=== PATIENT | female | born 1945 | race Caucasian/White ===

== ENCOUNTER 2017-09-06 20:59 | Inpatient (IN) | payer MEDICAID ==
--- NOTE | 2017-09-06 21:25 | ED Physician Chart ---
ED Chief Complaint/HPI - Patient Information Date Seen:: 09/06/17 Time Seen:: 21:20 Chief Complaint:: abnormal labs History of Present Illness:: location: general quality: abnormal labs severity: moderat duration: one day context: pt with routine lab draw today. BUN is elevated 50's. SNF staff called PCP who advised send pt to ER for MSE to assess for abnormal labs. pt is non verbal during transport. pt does not speak during nursing triage encounter. no complaint. pt does not speak is a chronic finding as reported by RN. no facial grimace. mod factors: none assoc s/s: none hx from SNF RN and medics Allergies:: Allergies Allergy/AdvReac Type Severity Reaction Status Date / Time Penicillins [PCN] Allergy Verified 09/06/17 21:11 Vitals:: Vital Signs - 8 hr 09/06/17 21:05 Temp 98.8 F HR 80 RR 16 BP 119/59 O2 Sat % 98 Historian:: EMS, Other Review:: Nurse's Note Reviewed, EMS run form Reviewed ED Review of Systems - Review of Systems General/Constitutional: No fever Skin: No rash ENT: No nasal drainage Neck: No stiffness Cardio Vascular: No edema Pulmonary: No cough GI: No vomiting, No diarrhea Wine Master: No abnormal vaginal bleed Neurological: No seizure ED Past Medical History - Past Medical History Past Medical History: HTN, DM, CAD Family History: Diabetes Melitus Social History: Non Smoker, No Alcohol, No Drug Use, Single, Care Facility Surgical History: other (bilateral above the knee amputation, PEG tube) Psychiatricy History: None Medication: Reviewed Family Medical History - Family Member Mother History Unknown: Yes ED Physical Exam - Physical Examination General/Constitutional: Awake, Well-developed, well-nourished, Alert, No distress, Non-toxic appearing Head: Atraumatic Eyes: Lids, conjuctiva normal, PERRL, EOMI Skin: Nl inspection, No rash, No skin lesions, No ecchymosis, Well hydrated, No lymphadenopathy ENMT: External ears, nose nl, Nasal exam nl, Lips, teeth, gums nl Neck: Nontender, Full ROM w/o pain, No JVD, No nuchal rigidity, No stridor Respiratory: Nl effort/Exclusion, Clear to Auscultation, No Wheeze/Rhonchi/ Rales (mild bilateral basal crackles on examination) Cardio Vascular: RRR, No murmur, gallop, rubs, NL S1 S2 GI: No tenderness/rebounding/guarding, Normal BS's (PEG tube intact, site is clean and dry) : No CVA tenderness Extremities: No tenderness or effusion (pt is bilateral AKA), Normal digits & nails Neuro/Psych: No focal deficits Misc: Normal back, No paraspinal tenderness ED Labs/Radiology/EKG Results - Lab Results Results: Laboratory Tests 09/06/17 09/06/17 09/06/17 21:00 21:32 21:32 WBC 9.6 RBC 3.98 Hgb 11.6 L Hct 35.3 L MCV 88.6 MCH 29.2 MCHC Differential 33.0 RDW 14.7 Plt Count 231 MPV 10.2 Band Neutrophils % 7 Neutrophils (Manual) 45 Lymphocytes 33 Monocytes 6 Eosinophils 7 H Atypical Lymphocytes 2 Sodium 136 Potassium 4.5 Chloride 98 Carbon Dioxide 30.4 Anion Gap 12.1 BUN 55 H Creatinine 1.9 H Est GFR ( Amer) TNP Est GFR (Non-Af Amer) TNP BUN/Creatinine Ratio 28.9 Glucose 177 H Calcium 11.5 H Total Bilirubin 0.3 AST 23 ALT 16 Alkaline Phosphatase 132 H Total Protein 8.1 Albumin 4.0 Globulin 4.1 Albumin/Globulin Ratio 1.0 Urine Source CATH Urine Color YELLOW Urine Clarity HAZY Urine pH 8.5 Ur Specific [place] 1.015 Urine Protein 100 H Urine Glucose (UA) NEGATIVE Urine Ketones NEGATIVE Urine Blood NEGATIVE Urine Nitrate POSITIVE H Urine Bilirubin NEGATIVE Urine Urobilinogen 0.2 Ur Leukocyte Esterase LARGE H Urine RBC 0-2 Urine WBC >100 H Ur Epithelial Cells MODERATE Urine Bacteria MANY - Radiology Results Results: EKG NSR 79 left ventricular hypertophy normal axis no acute ectopy no acute ST elevation no acute ST depression abnormal EKG chronic findings ER READ CXR no acute pneumothorax no acute rib fracture borderline cardiomegaly no acute infiltrate ER READ ED Assessment - Assessment General Assessment: pt stable while in ER ED Septic Shock - . Is Septic Shock (SBP<90, OR Lactate>4 mmol\L) present?: No - <6hrs of presentation: Vital Signs: Vital Signs - 8 hr 09/06/17 21:05 Temp 98.8 F HR 80 RR 16 BP 119/59 O2 Sat % 98 ED Reassessment (Disposition) - Reassessment Reassessment:: medical decision making: pt with acute urinary infection and elevated BUN 50's with mildly elevated creatinine findings consistent with prerenal azotemia/dehydration. will give IV fluid bolus and start antibiotics levofloxacin and follow. Reassessment Condition:: Improved - Diagnosis Diagnosis:: Acute urinary infection Acute renal insufficiency - Patient Disposition Discharge/Transfer:: Acute Care w/in this hosp Admitted to:: Med/Surg Admitting Medical Physician:: Saranya Castaneda Time:: 23:30 Condition at Disposition:: Stable, Improved
[2017-09-06 21:45] LABS: HEMATOCRIT 35.3 % (41.0-60); HEMOGLOBIN 11.6 gm/dL (12-16); MEAN CELL VOLUME 88.6 fl (81-100); MEAN CORPUSCULAR HEMOGLOBIN 29.2 pg (27.0-31.0); MEAN PLATELET VOLUME 10.2 fl; PLATELET COUNT 231 Th/cmm (150-400); RED BLOOD COUNT 3.98 Mil/cmm (3.80-5.20); RED CELL DISTRIBUTION WIDTH 14.7 % (11.5-20.0); WHITE BLOOD COUNT 9.6 Th/cmm (4.8-10.8)
[2017-09-06 21:57] LABS: ALKALINE PHOSPHATASE 132 U/L (34-104); ANION GAP 12.1 (7.0-16.0); BILIRUBIN,TOTAL 0.3 mg/dL (0.3-1.0); BUN - UREA NITROGEN 55 mg/dL (7-25); CALCIUM SERUM 11.5 mg/dL (8.6-10.3); CARBON DIOXIDE 30.4 mEq/L (21.0-31.0); CHLORIDE 98 mEq/L (98-107); CREATININE - SERUM 1.9 mg/dL (0.6-1.2); GLUCOSE 177 mg/dL (70-105); POTASSIUM SERUM 4.5 mEq/L (3.5-5.1); SGOT 23 U/L (13-39); SGPT/ALT 16 U/L (7-52); SODIUM SERUM 136 mEq/L (136-145); TOTAL PROTEIN,SERUM 8.1 gm/dL (6.0-8.3)
[2017-09-06 22:07] LABS: MANUAL DIFF REQUIRED? YES
[2017-09-06 22:08] LABS: ATYPICAL LYMPH 2 %; BAND NEUTROPHILE 7 % (0-10); EOSINOPHIL 7 % (0-5); LYMPHOCYTE 33 % (20-50); MONOCYTE 6 % (2-10); NEUTROPHILS 45 % (40-80); TOTAL CELLS COUNTED 100
[2017-09-06 22:33] LABS: URINE MICROSCOPIC INDICATED? YES; URINE SOURCE CATH
[2017-09-06 23:01] LABS: URINE BILIRUBIN NEGATIVE (NEGATIVE); URINE BLOOD NEGATIVE (NEGATIVE); URINE GLUCOSE (UA) NEGATIVE (NEGATIVE); URINE KETONE NEGATIVE (NEGATIVE); URINE LEUKOCYTE ESTERASE LARGE (NEGATIVE); URINE NITRATE POSITIVE (NEGATIVE); URINE PH 8.5 (4.6 - 8.0); URINE PROTEIN 100 mg/dL (NEGATIVE); URINE UROBILINOGEN 0.2 E.U./dL (0.2 - 1.0)
[2017-09-06 23:06] LABS: URINE CLARITY HAZY (CLEAR); URINE COLOR YELLOW
[2017-09-06 23:09] LABS: URINE BACTERIA MANY /hpf (NONE SEEN); URINE EPITHELIAL CELLS MODERATE /lpf (FEW); URINE RBC 0-2 /hpf (0-5); URINE WBC >100 /hpf (0-5)
[2017-09-06] MEDS ORDERED: Levofloxacin 500mg/100mL 500 MG/100 ML BAG IV ONE ×2 (23:23)
[2017-09-06] MEDS ORDERED: Sodium Chloride 0.9% 1,000 ML IV SCH (23:30)
[2017-09-07 02:19] VITALS: BP 159/52
[2017-09-07 05:42] LABS: % BASOPHILS 0.8 % (0.0-2.0); % EOSINOPHILS 1.4 % (0.0-5.0); % MONOCYTES 6.2 % (2.0-10.0); % NEUTROPHILS 73.6 % (40.0-80.0); BASOPHILE ABSOLUTE 0.1 Th/cumm (0-0.2); EOSINOPHILE ABSOLUTE 0.1 Th/cmm (0.1-0.4); HEMATOCRIT 31.8 % (41.0-60); HEMOGLOBIN 10.6 gm/dL (12-16); LYMPHOCYTE ABSOLUTE 1.9 Th/cmm (1.5-3.0); MEAN CELL VOLUME 89.3 fl (81-100); MEAN CORPUSCULAR HEMOGLOBIN 29.8 pg (27.0-31.0); MEAN CORPUSCULAR HGB CONC 33.4 pg (28.0-36.0); MEAN PLATELET VOLUME 10.1 fl; MONOCYTE ABSOLUTE 0.6 Th/cmm (0.3-1.0); NEUTROPHILE ABSOLUTE 7.6 Th/cmm (1.8-8.0); PLATELET COUNT 207 Th/cmm (150-400); RED BLOOD COUNT 3.57 Mil/cmm (3.80-5.20); RED CELL DISTRIBUTION WIDTH 14.7 % (11.5-20.0); WHITE BLOOD COUNT 10.3 Th/cmm (4.8-10.8)
[2017-09-07 06:00] LABS: ANION GAP 12.1 (7.0-16.0); BUN - UREA NITROGEN 56 mg/dL (7-25); CALCIUM SERUM 10.5 mg/dL (8.6-10.3); CARBON DIOXIDE 28.5 mEq/L (21.0-31.0); CHLORIDE 101 mEq/L (98-107); CREATININE - SERUM 1.9 mg/dL (0.6-1.2); GLUCOSE 212 mg/dL (70-105); POTASSIUM SERUM 4.6 mEq/L (3.5-5.1); SODIUM SERUM 137 mEq/L (136-145)
[2017-09-07] MEDS: Sodium Chloride 0.45% 1,000 ML IV SCH ×3 (07:45→22:13)
[2017-09-07] MEDS: INSULIN ASPART SLIDING SCALE 100 UNITS/ML UNIT SUBQ SCH ×3 (07:45→18:23)
--- NOTE | 2017-09-07 08:07 | Diagnostic Imaging Report ---
CHEST X-RAY: AP view INDICATION: Pneumonia COMPARISON: None FINDINGS: Increased left basal lung markings are noted. No definite effusions. Cardiomegaly is noted with atherosclerosis. Chronic lung changes are noted. Degenerative changes of spine are noted. IMPRESSION: Increased left basal lung markings. Faint left basal infiltrate cannot be excluded. Please correlate clinically. Cardiomegaly and atherosclerotic vascular disease.
[2017-09-07] MEDS ORDERED: Probiotic Screen MC PRN (10:17)
[2017-09-07 11:35] LABS: A1C % 7.5 % (4.0-6.0)
--- NOTE | 2017-09-07 12:26 | History and Physical ---
History of Present Illness - HPI Chief Complaint: BUN 50 HPI: THIS IS A 71 YEAR OLD FEMALE WHO IS A [facility] RESIDENT [facility]UE TO ELEVATED BUN OF 50. Vital Signs: Last Vital Signs Temp 98.6 F 09/07/17 11:39 Pulse 70 09/07/17 11:39 Resp 18 09/07/17 11:39 BP 145/65 09/07/17 11:39 Pulse Ox 97 09/07/17 11:39 Past Medical History Other History: HTN DM CAD - Past Surgical History Past Surgical History: Other (PEG BKA) Family Medical History - Family Member Mother History Unknown: Yes (NONCONTRIBUTORY) Social History Smoke: No Alcohol: None Drugs: None Lives: [facility] Domestic Violence: Negative - Medications Home Medications: Home Medication Medication Instructions Recorded Type Hydralazine HCl 50 mg GT TID 09/06/17 History Insulin Aspart Sliding Scale See Protocol SUBQ TID 09/06/17 History [NovoLOG INSULIN SLIDING SCALE] Insulin Detemir [Levemir Insulin] 30 units SUBQ BIDAC 09/06/17 History Insulin Glargine, Recombinan 30 units SUBQ BID 09/06/17 History [Lantus] Memantine HCl [Namenda] 10 mg GT BID 09/06/17 History Multivitamin [Theragran] 5 ml GT DAILY 09/06/17 History Sulfamethoxazole/TMP [Bactrim Ds] 1 tab GT BID 09/06/17 History Vit C/Ascorbate Ca/Ascorb Sod 500 mg GT DAILY 09/06/17 History [Vitamin C 500 mg/15 ml Liquid] Zinc Sulfate 220 mg GT DAILY 09/06/17 History amLODIPine Besylate [Norvasc] 5 mg GT DAILY 09/06/17 History - Allergies Allergies/Adverse Reactions: Allergies Allergy/AdvReac Type Severity Reaction Status Date / Time Penicillins [PCN] Allergy Verified 09/06/17 21:11 Review of Systems - Review of Systems Constitutional: Report: No Significant Eyes: Report: No Significant ENT: Report: No Significant Respiratory: Report: No Significant Cardiovascular: Report: No Significant Gastrointestinal: Report: No Significant Genitourinary: Report: No Significant Musculoskeletal: Report: No Significant Skin: Report: No Significant Neurological: Report: No Significant Physical Exam - Physical Exam HEENT: Report: Ears Nose Throat within normal limits Neck: Report: Within normal limits Cardiovascular Systems: Report: +s1/s2 noted Respiratory: Report: Breath Sounds are within normal limits Abdomen: Report: Non-tender to palpation Back: Report: Inspection of back is within normal limits. Extremities: Report: Non-tender to palpation. Skin: Report: Color of skin is within normal limits Neuro/Psych: Report: Mood affect is within normal limits - Lab Results All Lab Results last 24 hours: Laboratory Results - last 24 hr 09/07/17 09/07/17 09/07/17 05:18 05:18 05:18 WBC 10.3 RBC 3.57 L Hgb 10.6 L Hct 31.8 L MCV 89.3 MCH 29.8 MCHC Differential 33.4 RDW 14.7 Plt Count 207 MPV 10.1 Neutrophils % 73.6 Lymphocytes % 18.0 L Monocytes % 6.2 Eosinophils % 1.4 Basophils % 0.8 Sodium 137 Potassium 4.6 Chloride 101 Carbon Dioxide 28.5 Anion Gap 12.1 BUN 56 H Creatinine 1.9 H Est GFR ( Amer) TNP Est GFR (Non-Af Amer) TNP BUN/Creatinine Ratio 29.5 Glucose 212 H POC Glucose Hemoglobin A1c % 7.5 H Calcium 10.5 H 09/07/17 09/07/17 07:38 11:30 WBC RBC Hgb Hct MCV MCH MCHC Differential RDW Plt Count MPV Neutrophils % Lymphocytes % Monocytes % Eosinophils % Basophils % Sodium Potassium Chloride Carbon Dioxide Anion Gap BUN Creatinine Est GFR ( Amer) Est GFR (Non-Af Amer) BUN/Creatinine Ratio Glucose POC Glucose 207 H 172 H Hemoglobin A1c % Calcium - Assessment Assessment: ACUTE RENAL INSUFFICIENCY DM2 CAD HTN - Plan Plan: IVF FOR HYDRATION NEPHRO CONSULT FOLLOW UP LABS IN AM ACCUCHECK WITH SLIDING SCALE CONTINUE CURRENT ORDERS
--- NOTE | 2017-09-07 12:53 | Diagnostic Imaging Report ---
Renal ultrasound HISTORY: pyelonephritis. COMPARISON: None Technique: Sonography of the kidneys and urinary bladder was performed in multiple planes. FINDINGS: The right kidney measures 9.6 x 4.2 cm. The left kidney measures 9.9 x 4.4 cm. The renal margins are not well-defined, however, no evidence of focal lesions. Rai catheter is seen within nondistended urinary bladder, limiting its evaluation. IMPRESSION: No evidence of hydronephrosis.
[2017-09-07] MEDS ORDERED: VTE Chemical Prophylaxis Screen/Admission MC PRN (13:53)
[2017-09-07] MEDS ORDERED: INSULIN ASPART SLIDING SCALE 100 UNITS/ML UNIT SUBQ SCH (14:00)
--- NOTE | 2017-09-07 14:03 | Consultation ---
DATE OF CONSULTATION: 09/07/2017 INFECTIOUS DISEASE CONSULTATION REFERRING PHYSICIAN: Dr. Castaneda. REASON FOR CONSULTATION: Urinary tract infection. HISTORY OF PRESENT ILLNESS: The patient is a 71-year-old female with a past medical history of diabetes mellitus, type 2; coronary artery disease; hypertension; and dementia, brought in from Nursing Facility for abnormal labs with high BUN around 50. On initial evaluation, the patient's temperature was 98.8 degrees Fahrenheit and WBC count was 9600. Urinalysis showed pyuria and bacteriuria. ID consult was called for UTI. Antibiotic chicas, the patient was already started on Levaquin. ALLERGIES: PENICILLIN. MEDICATIONS: As per medication reconciliation sheet. Antibiotic chicas, Levaquin. SOCIAL HISTORY: The patient lives in a nursing facility. No history of smoking, alcohol or drug use. REVIEW OF SYSTEMS: The patient is demented, not giving any history. PHYSICAL EXAMINATION: VITAL SIGNS: Current vital signs show temperature is 98.4, pulse 77, respiration 19, blood pressure 140/83, oxygen saturation 98%. GENERAL: The patient is comfortable, cachectic, not in acute distress. HEENT: Head is normocephalic, atraumatic. Oral cavity moist, pink tongue. Eyes: Pallor is present. No icterus. NECK: Supple. No JVD. No carotid bruit. Trachea in midline. CHEST: Bilateral breath sounds. No crackles or wheezing. HEART: S1, S2 within normal limits. Regular rhythm. No murmur, no gallop. ABDOMEN: Soft, nontender, nondistended. Bowel sounds present. EXTREMITIES: No cyanosis, no clubbing, no edema. CENTRAL NERVOUS SYSTEM: Alert and awake, but not communicating. LABORATORY DATA: WBC count 10,300, hemoglobin 10.6, hematocrit 31.8, platelets are 207,000, neutrophil is 73.6%. Sodium is 137, potassium 4.6, chloride 101, bicarb is 28.5, BUN is 56, creatinine 1.99. Glucose is 212. Urinalysis showed positive nitrite, large leukocyte esterase, wbc's more than 100 and many bacteria. Chest x-ray showed increased left basal markings and left basal infiltrate cannot be excluded. IMPRESSION: 1. Urinary tract infection. 2. Diabetes mellitus, type 2. 3. Hypertension. 4. Dementia. 5. Coronary artery disease. RECOMMENDATIONS AND PLAN: We will continue on Levaquin. Check renal ultrasound. JOB# [id number]
[2017-09-07] MEDS: Insulin Detemir 100 units/mL 10mL Vial SUBQ SCH (16:24)
[2017-09-07] MEDS ORDERED: INSULIN GLARGINE SUBQ SCH (17:00)
--- NOTE | 2017-09-07 21:20 | Consultation ---
DATE OF CONSULTATION: 09/07/2017 ATTENDING: Griselda Castaneda M.D. MEDIA OPERATOR: Santhosh Monson M.D. REASON FOR CONSULT: Worsening kidney function, electrolyte imbalance and fluid management. HISTORY OF PRESENT ILLNESS: This is a 71-year-old female with past medical history of chronic kidney disease who was admitted because of abnormal labs. Three months prior to admission, the patient was admitted at [facility]. Her BUN/creatinine at that time were 105/1.92. A few hours prior to admission, she had labs drawn, which revealed a BUN/creatinine of 51/1.63. She was eventually brought to the Emergency Room. Her BUN/creatinine upon arrival were 55/1.9. Renal ultrasound revealed no acute disease. Urinalysis was suggestive of a UTI. She had no history of nausea and vomiting as well as diarrhea. PAST MEDICAL HISTORY: 1. Chronic kidney disease. 2. Essential hypertension. 3. Type 2 diabetes mellitus. 4. Alzheimer dementia. 5. Chronic obstructive pulmonary disease. 6. History of congestive heart failure. 7. Peripheral arterial disease. 8. Osteomyelitis. 9. History of Proteus mirabilis complicated UTI. CURRENT MEDICATIONS: She is currently on amlodipine, ascorbic acid, hydralazine, insulin aspart, detemir, Lactobacillus, levofloxacin, , multivitamins, zinc sulfate. ALLERGIES: ALLERGIC TO PENICILLIN. SOCIAL AND FAMILY HISTORY: I was unable to obtain from the patient because the patient remained aphasic. REVIEW OF SYSTEMS: Again, I was unable to decipher directly from the patient because of above reason. PHYSICAL EXAMINATION: GENERAL: The patient is awake, not in any form of distress, remains nonverbal. VITAL SIGNS: Her blood pressure is 128/49, pulse 82, temperature 99.2 degrees. SKIN: Poor turgor, warm, no rash, no jaundice appreciated. HEENT: Head: Normocephalic, atraumatic. Eyes: Extraocular muscles intact. Pupils equal, round, reactive to light and accommodates. Anicteric sclerae. Pale conjunctivae. Nose: Midline nasal septum. Mouth: Dry mucosa, poor dentition. NECK: Supple, no adenopathy, no thyromegaly, no bruits. Trachea palpated in the midline. CHEST AND CVS: S1, S2. No rub, murmur, no gallop appreciated. Point of maximal impulse, unable to assess due to patient's size. No abdominal or femoral bruits appreciated. LUNGS: Equal expansion. No use of accessory muscles. No supraclavicular retractions. Decreased breath sounds but no rales nor wheezes appreciated. BREASTS: Symmetrical, pendulous, without any discharge. ABDOMEN: Obese, soft, positive for bowel sounds. No bruits either diastolic or systolic. RECTAL: The lax sphincter tone. GENITOURINARY: Normal appearing female genitalia. MUSCULOSKELETAL: No effusions present in her joints, but unable to assess her range of motion. EXTREMITIES: She has bilateral AKA, she also has some mild right upper extremity edema. She has a palpable femoral, but unable to fully appreciate popliteal pulses. NEUROLOGIC: The patient is awake, unable to follow my neuro commands, so I was unable to pursue further my neuro exam. LABORATORY DATA: Labs did reveal white count 10.3, hemoglobin 10.6, hematocrit 31.8. Sodium 137, potassium 4.6, chloride 101, bicarbonate 28, BUN 56, creatinine 1.9, glucose is 212, hemoglobin A1c 7.5, calcium 10.5, albumin 4. IMPRESSION: 1. Acute kidney injury on chronic kidney disease. The patient's chronic kidney disease is secondary to diabetic nephropathy with some underlying hypertensive nephrosclerosis. Acute kidney injury is likely initially prerenal in nature. Even though the patient has a gastric tube feeding, this may not be enough to replenish sensible and insensible fluid losses. She did develop prerenal azotemia, which eventually progressed to acute tubular injury. The patient now has ongoing complicated urinary tract infection and this can lead to development of acute interstitial nephritis. 2. Dehydration. 3. Recurrent complicated urinary tract infection. 4. Essential hypertension with chronic kidney disease. 5. Type 2 diabetes mellitus with chronic kidney disease. 6. Alzheimer dementia. 7. Chronic obstructive pulmonary disease. 8. History of congestive heart failure. 9. Peripheral arterial disease, status post bilateral above-knee amputation. 10. History of osteomyelitis of lower extremities. 11. History of Proteus mirabilis complicated urinary tract infection. PLAN: 1. Agree with normal saline at 125 mL per hour. 2. Request for urine sodium, eosinophils and creatinine. 3. Urine microalbumin to creatinine ratio. 4. Follow up urine cultures. 5. Follow up electrolytes as well as uric acid. Thank you Dr. Castaneda for this consult. I will follow the patient closely with you. JOB# [id number]
[2017-09-07] MEDS: Levofloxacin 500mg/100mL 500 MG/100 ML BAG IV SCH (23:41)
[2017-09-08] MEDS: INSULIN ASPART SLIDING SCALE 100 UNITS/ML UNIT SUBQ SCH ×5 (00:49→23:47)
[2017-09-08] MEDS: Sodium Chloride 0.45% 1,000 ML IV SCH ×3 (06:30→23:08)
[2017-09-08] MEDS: Insulin Detemir 100 units/mL 10mL Vial SUBQ SCH ×2 (06:36→17:09)
[2017-09-08 06:50] LABS: HEMATOCRIT 30.3 % (41.0-60); HEMOGLOBIN 10.3 gm/dL (12-16); MEAN CELL VOLUME 89.1 fl (81-100); MEAN CORPUSCULAR HEMOGLOBIN 30.3 pg (27.0-31.0); MEAN PLATELET VOLUME 10.5 fl; PLATELET COUNT 207 Th/cmm (150-400); RED CELL DISTRIBUTION WIDTH 14.7 % (11.5-20.0); WHITE BLOOD COUNT 7.2 Th/cmm (4.8-10.8)
[2017-09-08 06:58] LABS: % BASOPHILS 0.6 % (0.0-2.0); % EOSINOPHILS 2.9 % (0.0-5.0); % LYMPHOCYTES 28.1 % (20.0-50.0); % MONOCYTES 9.3 % (2.0-10.0)
[2017-09-08 06:59] LABS: % NEUTROPHILS 59.1 % (40.0-80.0)
[2017-09-08 07:24] LABS: BUN - UREA NITROGEN 44 mg/dL (7-25); CARBON DIOXIDE 26.5 mEq/L (21.0-31.0); CHLORIDE 101 mEq/L (98-107); CREATININE - SERUM 1.5 mg/dL (0.6-1.2); GLUCOSE 186 mg/dL (70-105); MAGNESIUM 2.3 mg/dL (1.9-2.7); PHOSPHOROUS 2.3 mg/dL (2.5-5.0); POTASSIUM SERUM 4.5 mEq/L (3.5-5.1); SODIUM SERUM 135 mEq/L (136-145); URIC ACID 7.4 mg/dL (2.3-6.6)
[2017-09-08] MEDS: Lactobacillus Rhamnosus 10 Billion CFU Capsule PO SCH (09:00)
[2017-09-08] MEDS: Multivitamin Tab GT SCH (09:00)
--- NOTE | 2017-09-08 09:16 | Infectious Disease Prog Note ---
Infectious Disease Subjective - Review of Systems Service Date: 09/08/17 Subjective: There is no new change, there is no fever, Infectious Disease Objective - Results Result Diagrams: 09/08/17 06:30 09/08/17 06:30 Recent Labs: Laboratory Last Values WBC 7.2 Th/cmm (4.8-10.8) D 09/08/17 06:30 RBC 3.40 Mil/cmm (3.80-5.20) L 09/08/17 06:30 Hgb 10.3 gm/dL (12-16) L 09/08/17 06:30 Hct 30.3 % (41.0-60) L 09/08/17 06:30 MCV 89.1 fl (81-100) 09/08/17 06:30 MCH 30.3 pg (27.0-31.0) 09/08/17 06:30 MCHC Differential 34.0 pg (28.0-36.0) 09/08/17 06:30 RDW 14.7 % (11.5-20.0) 09/08/17 06:30 Plt Count 207 Th/cmm (150-400) 09/08/17 06:30 MPV 10.5 fl 09/08/17 06:30 Neutrophils % 59.1 % (40.0-80.0) 09/08/17 06:30 Band Neutrophils % 7 % (0-10) 09/06/17 21:32 Lymphocytes % 28.1 % (20.0-50.0) 09/08/17 06:30 Monocytes % 9.3 % (2.0-10.0) 09/08/17 06:30 Eosinophils % 2.9 % (0.0-5.0) 09/08/17 06:30 Basophils % 0.6 % (0.0-2.0) 09/08/17 06:30 Neutrophils (Manual) 45 % (40-80) 09/06/17 21:32 Lymphocytes 33 % (20-50) 09/06/17 21:32 Monocytes 6 % (2-10) 09/06/17 21:32 Eosinophils 7 % (0-5) H 09/06/17 21:32 Atypical Lymphocytes 2 % 09/06/17 21:32 Sodium 135 mEq/L (136-145) L 09/08/17 06:30 Potassium 4.5 mEq/L (3.5-5.1) 09/08/17 06:30 Chloride 101 mEq/L (98-107) 09/08/17 06:30 Carbon Dioxide 26.5 mEq/L (21.0-31.0) 09/08/17 06:30 Anion Gap 12.0 (7.0-16.0) 09/08/17 06:30 BUN 44 mg/dL (7-25) H 09/08/17 06:30 Creatinine 1.5 mg/dL (0.6-1.2) H 09/08/17 06:30 Est GFR ( Amer) TNP 09/08/17 06:30 Est GFR (Non-Af Amer) TNP 09/08/17 06:30 BUN/Creatinine Ratio 29.3 09/08/17 06:30 Glucose 186 mg/dL (70-105) H 09/08/17 06:30 POC Glucose 178 MG/DL (70 - 105) H 09/08/17 05:36 Hemoglobin A1c % 7.5 % (4.0-6.0) H 09/07/17 05:18 Uric Acid 7.4 mg/dL (2.3-6.6) H 09/08/17 06:30 Calcium 10.0 mg/dL (8.6-10.3) 09/08/17 06:30 Phosphorus 2.3 mg/dL (2.5-5.0) L 09/08/17 06:30 Magnesium 2.3 mg/dL (1.9-2.7) 09/08/17 06:30 Total Bilirubin 0.3 mg/dL (0.3-1.0) 09/06/17 21:32 AST 23 U/L (13-39) 09/06/17 21:32 ALT 16 U/L (7-52) 09/06/17 21:32 Alkaline Phosphatase 132 U/L (34-104) H 09/06/17 21:32 Total Protein 8.1 gm/dL (6.0-8.3) 09/06/17 21:32 Albumin 4.0 gm/dL (3.7-5.3) 09/06/17 21:32 Globulin 4.1 gm/dL 09/06/17 21:32 Albumin/Globulin Ratio 1.0 (1.0-1.8) 09/06/17 21:32 Urine Source CATH 09/06/17 21:00 Urine Color YELLOW 09/06/17 21:00 Urine Clarity HAZY (CLEAR) 09/06/17 21:00 Urine pH 8.5 (4.6 - 8.0) 09/06/17 21:00 Ur Specific [place] 1.015 (1.005-1.030) 09/06/17 21:00 Urine Protein 100 mg/dL (NEGATIVE) H 09/06/17 21:00 Urine Glucose (UA) NEGATIVE mg/dL (NEGATIVE) 09/06/17 21:00 Urine Ketones NEGATIVE mg/dL (NEGATIVE) 09/06/17 21:00 Urine Blood NEGATIVE (NEGATIVE) 09/06/17 21:00 Urine Nitrate POSITIVE (NEGATIVE) H 09/06/17 21:00 Urine Bilirubin NEGATIVE (NEGATIVE) 09/06/17 21:00 Urine Urobilinogen 0.2 E.U./dL (0.2 - 1.0) 09/06/17 21:00 Ur Leukocyte Esterase LARGE (NEGATIVE) H 09/06/17 21:00 Urine RBC 0-2 /hpf (0-5) 09/06/17 21:00 Urine WBC >100 /hpf (0-5) H 09/06/17 21:00 Ur Epithelial Cells MODERATE /lpf (FEW) 09/06/17 21:00 Urine Bacteria MANY /hpf (NONE SEEN) 09/06/17 21:00 - Physical Exam Vitals and I&O: Vital Signs Temp 98 F 09/08/17 04:00 Pulse 80 09/08/17 08:57 Resp 18 09/08/17 04:00 BP 149/57 09/08/17 08:57 Pulse Ox 99 09/08/17 04:00 Intake & Output 09/07/17 09/08/17 09/08/17 18:59 06:59 18:59 Intake Total 5142.405 8116 Output Total 600 Balance 889.375 0632 Weight (lbs) 62.596 kg Intake: Intake, IV Amount 345.059 0565 Sodium Chloride 0.45% 1, 555.280 8078 000 ml @ 125 mls/hr IV . Q8H NEENA Rx#:[id number] Tube Feeding 600 Output: Urine 600 Other: # Bowel Movements 1 Active Medications: Current Medications Amlodipine Besylate (Norvasc) 5 mg GT DAILY NEENA Stop: 11/07/17 08:59 Ascorbic Acid (Vitamin C) 500 mg GT DAILY NEENA Stop: 11/07/17 08:59 Heparin Sodium (Porcine) (Heparin) 5,000 units SUBQ Q12H NEENA Stop: 11/06/17 20:59 Last Admin: 09/08/17 09:01 Dose: 5,000 units Hydralazine HCl (Apresoline) 50 mg GT TID NEENA Stop: 11/06/17 13:59 Last Admin: 09/08/17 08:57 Dose: 50 mg Levofloxacin (Levaquin Pb) 500 mg in 100 mls @ 100 mls/hr IV Q24HR NEENA Stop: 11/06/17 23:29 Last Admin: 09/07/17 23:41 Dose: 100 mls/hr Sodium Chloride (Nacl 0.45%) 1,000 mls @ 125 mls/hr IV .Q8H NEENA Stop: 11/06/17 00:05 Last Admin: 09/08/17 06:30 Dose: 125 mls/hr Insulin Aspart (Novolog Insulin Sliding Scale) 0 units SUBQ Q6HR NEENA PRN Reason: Protocol Stop: 11/06/17 05:59 Last Admin: 09/08/17 06:33 Dose: 2 units Insulin Detemir (Levemir Insulin) 30 units SUBQ BIDAC NEENA PRN Reason: Protocol Stop: 11/06/17 16:29 Last Admin: 09/08/17 06:36 Dose: 30 units Lactobacillus Rhamnosus (Culturelle) 1 each PO DAILY NEENA Stop: 11/07/17 08:59 Last Admin: 09/08/17 09:00 Dose: 1 each Memantine (Namenda) 10 mg GT BID NEENA Stop: 11/06/17 16:59 Last Admin: 09/08/17 09:00 Dose: 10 mg Miscellaneous (Probiotic Screen) 1 ea PRN PRN PRN Reason: PROTOCOL Stop: 11/06/17 10:16 Miscellaneous (Vte Chemical Prophylaxis Screen/ Admission) 1 ea PRN PRN PRN Reason: PROTOCOL Stop: 11/06/17 13:52 Multivitamins/Vitamin C (Theragran) 1 tab GT DAILY NEENA Stop: 11/07/17 08:59 Last Admin: 12/20/17 09:00 Dose: 1 tab Zinc Sulfate (Zinc Sulfate) 220 mg GT DAILY NEENA Stop: 11/07/17 08:59 Last Admin: 09/08/17 09:00 Dose: 220 mg General: no acute distress HEENT: atraumatic, normocephalic, PERRLA Neck: supple Cardiovascular: S1S2, regular Lungs: clear to auscultation bilaterally, clear to percussion Abdomen: soft, no tender, no distended, no mass Extremities: no cyanosis, no clubbing, no edema Neurological: awake, alert Infectious Disease Assmt/Plan - Assessment Assessment: 1. Urinary tract infection. 2. Diabetes mellitus, type 2. 3. Hypertension. 4. Dementia. 5. Coronary artery disease. - Plan Plan: continue on Levaquin. Check renal ultrasound.
[2017-09-08] MEDS: Ascorbic Acid 500 mg/5 mL UDC GT SCH (11:41)
--- NOTE | 2017-09-08 16:08 | General Progress Note ---
Subjective - Review of Systems Events since last encounter: patient in no distress no fever Objective - Results Result Diagrams: 09/08/17 06:30 09/08/17 06:30 Recent Labs: Laboratory Last Values WBC 7.2 Th/cmm (4.8-10.8) D 09/08/17 06:30 RBC 3.40 Mil/cmm (3.80-5.20) L 09/08/17 06:30 Hgb 10.3 gm/dL (12-16) L 09/08/17 06:30 Hct 30.3 % (41.0-60) L 09/08/17 06:30 MCV 89.1 fl (81-100) 09/08/17 06:30 MCH 30.3 pg (27.0-31.0) 09/08/17 06:30 MCHC Differential 34.0 pg (28.0-36.0) 09/08/17 06:30 RDW 14.7 % (11.5-20.0) 09/08/17 06:30 Plt Count 207 Th/cmm (150-400) 09/08/17 06:30 MPV 10.5 fl 09/08/17 06:30 Neutrophils % 59.1 % (40.0-80.0) 09/08/17 06:30 Band Neutrophils % 7 % (0-10) 09/06/17 21:32 Lymphocytes % 28.1 % (20.0-50.0) 09/08/17 06:30 Monocytes % 9.3 % (2.0-10.0) 09/08/17 06:30 Eosinophils % 2.9 % (0.0-5.0) 09/08/17 06:30 Basophils % 0.6 % (0.0-2.0) 09/08/17 06:30 Neutrophils (Manual) 45 % (40-80) 09/06/17 21:32 Lymphocytes 33 % (20-50) 09/06/17 21:32 Monocytes 6 % (2-10) 09/06/17 21:32 Eosinophils 7 % (0-5) H 09/06/17 21:32 Atypical Lymphocytes 2 % 09/06/17 21:32 Sodium 135 mEq/L (136-145) L 09/08/17 06:30 Potassium 4.5 mEq/L (3.5-5.1) 09/08/17 06:30 Chloride 101 mEq/L (98-107) 09/08/17 06:30 Carbon Dioxide 26.5 mEq/L (21.0-31.0) 09/08/17 06:30 Anion Gap 12.0 (7.0-16.0) 09/08/17 06:30 BUN 44 mg/dL (7-25) H 09/08/17 06:30 Creatinine 1.5 mg/dL (0.6-1.2) H 09/08/17 06:30 Est GFR ( Amer) TNP 09/08/17 06:30 Est GFR (Non-Af Amer) TNP 09/08/17 06:30 BUN/Creatinine Ratio 29.3 09/08/17 06:30 Glucose 186 mg/dL (70-105) H 09/08/17 06:30 POC Glucose 178 MG/DL (70 - 105) H 09/08/17 11:39 Hemoglobin A1c % 7.5 % (4.0-6.0) H 09/07/17 05:18 Uric Acid 7.4 mg/dL (2.3-6.6) H 09/08/17 06:30 Calcium 10.0 mg/dL (8.6-10.3) 09/08/17 06:30 Phosphorus 2.3 mg/dL (2.5-5.0) L 09/08/17 06:30 Magnesium 2.3 mg/dL (1.9-2.7) 09/08/17 06:30 Total Bilirubin 0.3 mg/dL (0.3-1.0) 09/06/17 21:32 AST 23 U/L (13-39) 09/06/17 21:32 ALT 16 U/L (7-52) 09/06/17 21:32 Alkaline Phosphatase 132 U/L (34-104) H 09/06/17 21:32 Total Protein 8.1 gm/dL (6.0-8.3) 09/06/17 21:32 Albumin 4.0 gm/dL (3.7-5.3) 09/06/17 21:32 Globulin 4.1 gm/dL 09/06/17 21:32 Albumin/Globulin Ratio 1.0 (1.0-1.8) 09/06/17 21:32 Urine Source CATH 09/06/17 21:00 Urine Color YELLOW 09/06/17 21:00 Urine Clarity HAZY (CLEAR) 09/06/17 21:00 Urine pH 8.5 (4.6 - 8.0) 09/06/17 21:00 Ur Specific [place] 1.015 (1.005-1.030) 09/06/17 21:00 Urine Protein 100 mg/dL (NEGATIVE) H 09/06/17 21:00 Urine Glucose (UA) NEGATIVE mg/dL (NEGATIVE) 09/06/17 21:00 Urine Ketones NEGATIVE mg/dL (NEGATIVE) 09/06/17 21:00 Urine Blood NEGATIVE (NEGATIVE) 09/06/17 21:00 Urine Nitrate POSITIVE (NEGATIVE) H 09/06/17 21:00 Urine Bilirubin NEGATIVE (NEGATIVE) 09/06/17 21:00 Urine Urobilinogen 0.2 E.U./dL (0.2 - 1.0) 09/06/17 21:00 Ur Leukocyte Esterase LARGE (NEGATIVE) H 09/06/17 21:00 Urine RBC 0-2 /hpf (0-5) 09/06/17 21:00 Urine WBC >100 /hpf (0-5) H 09/06/17 21:00 Ur Epithelial Cells MODERATE /lpf (FEW) 09/06/17 21:00 Urine Bacteria MANY /hpf (NONE SEEN) 09/06/17 21:00 - Physical Exam Vitals and I&O: Vital Signs Temp 97.9 F 09/08/17 12:20 Pulse 79 09/08/17 14:52 Resp 18 09/08/17 12:20 BP 138/54 09/08/17 14:52 Pulse Ox 98 09/08/17 12:20 Intake & Output 09/07/17 09/08/17 09/08/17 18:59 06:59 18:59 Intake Total 1953.875 0421 Output Total 600 Balance 987.172 3977 Weight (lbs) 62.596 kg Intake: Intake, IV Amount 860.512 7342 Sodium Chloride 0.45% 1, 548.548 5358 000 ml @ 125 mls/hr IV . Q8H [facility] Rx#:[id number] Tube Feeding 600 Output: Urine 600 Other: # Bowel Movements 1 Active Medications: Current Medications Amlodipine Besylate (Norvasc) 5 mg GT DAILY NEENA Stop: 11/07/17 08:59 Last Admin: 09/08/17 11:41 Dose: 5 mg Ascorbic Acid (Vitamin C) 500 mg GT DAILY NEENA Stop: 11/07/17 08:59 Last Admin: 09/08/17 11:41 Dose: Not Given Heparin Sodium (Porcine) (Heparin) 5,000 units SUBQ Q12H NEENA Stop: 11/06/17 20:59 Last Admin: 09/08/17 09:01 Dose: 5,000 units Hydralazine HCl (Apresoline) 50 mg GT TID NEENA Stop: 11/06/17 13:59 Last Admin: 09/08/17 14:52 Dose: 50 mg Levofloxacin (Levaquin Pb) 500 mg in 100 mls @ 100 mls/hr IV Q24HR NEENA Stop: 11/06/17 23:29 Last Admin: 09/07/17 23:41 Dose: 100 mls/hr Sodium Chloride (Nacl 0.45%) 1,000 mls @ 125 mls/hr IV .Q8H NEENA Stop: 11/06/17 00:05 Last Admin: 09/08/17 06:30 Dose: 125 mls/hr Insulin Aspart (Novolog Insulin Sliding Scale) 0 units SUBQ Q6HR NEENA PRN Reason: Protocol Stop: 11/06/17 05:59 Last Admin: 09/08/17 12:36 Dose: 2 units Insulin Detemir (Levemir Insulin) 30 units SUBQ BIDAC NEENA PRN Reason: Protocol Stop: 11/06/17 16:29 Last Admin: 09/08/17 06:36 Dose: 30 units Lactobacillus Rhamnosus (Culturelle) 1 each PO DAILY NEENA Stop: 11/07/17 08:59 Last Admin: 09/08/17 09:00 Dose: 1 each Memantine (Namenda) 10 mg GT BID NEENA Stop: 11/06/17 16:59 Last Admin: 09/08/17 09:00 Dose: 10 mg Miscellaneous (Probiotic Screen) 1 ea PRN PRN PRN Reason: PROTOCOL Stop: 11/06/17 10:16 Miscellaneous (Vte Chemical Prophylaxis Screen/ Admission) 1 ea PRN PRN PRN Reason: PROTOCOL Stop: 11/06/17 13:52 Multivitamins/Vitamin C (Theragran) 1 tab GT DAILY NEENA Stop: 11/07/17 08:59 Last Admin: 09/08/17 09:00 Dose: 1 tab Zinc Sulfate (Zinc Sulfate) 220 mg GT DAILY NEENA Stop: 11/07/17 08:59 Last Admin: 09/08/17 09:00 Dose: 220 mg
--- NOTE | 2017-09-08 18:40 | General Progress Note ---
Subjective - Review of Systems Service Date: 09/08/17 Subjective: awake, nonverbal, comfortable Objective - Results Result Diagrams: 09/08/17 06:30 09/08/17 06:30 Recent Labs: Laboratory Last Values WBC 7.2 Th/cmm (4.8-10.8) D 09/08/17 06:30 RBC 3.40 Mil/cmm (3.80-5.20) L 09/08/17 06:30 Hgb 10.3 gm/dL (12-16) L 09/08/17 06:30 Hct 30.3 % (41.0-60) L 09/08/17 06:30 MCV 89.1 fl (81-100) 09/08/17 06:30 MCH 30.3 pg (27.0-31.0) 09/08/17 06:30 MCHC Differential 34.0 pg (28.0-36.0) 09/08/17 06:30 RDW 14.7 % (11.5-20.0) 09/08/17 06:30 Plt Count 207 Th/cmm (150-400) 09/08/17 06:30 MPV 10.5 fl 09/08/17 06:30 Neutrophils % 59.1 % (40.0-80.0) 09/08/17 06:30 Band Neutrophils % 7 % (0-10) 09/06/17 21:32 Lymphocytes % 28.1 % (20.0-50.0) 09/08/17 06:30 Monocytes % 9.3 % (2.0-10.0) 09/08/17 06:30 Eosinophils % 2.9 % (0.0-5.0) 09/08/17 06:30 Basophils % 0.6 % (0.0-2.0) 09/08/17 06:30 Neutrophils (Manual) 45 % (40-80) 09/06/17 21:32 Lymphocytes 33 % (20-50) 09/06/17 21:32 Monocytes 6 % (2-10) 09/06/17 21:32 Eosinophils 7 % (0-5) H 09/06/17 21:32 Atypical Lymphocytes 2 % 09/06/17 21:32 Sodium 135 mEq/L (136-145) L 09/08/17 06:30 Potassium 4.5 mEq/L (3.5-5.1) 09/08/17 06:30 Chloride 101 mEq/L (98-107) 09/08/17 06:30 Carbon Dioxide 26.5 mEq/L (21.0-31.0) 09/08/17 06:30 Anion Gap 12.0 (7.0-16.0) 09/08/17 06:30 BUN 44 mg/dL (7-25) H 09/08/17 06:30 Creatinine 1.5 mg/dL (0.6-1.2) H 09/08/17 06:30 Est GFR ( Amer) TNP 09/08/17 06:30 Est GFR (Non-Af Amer) TNP 09/08/17 06:30 BUN/Creatinine Ratio 29.3 09/08/17 06:30 Glucose 186 mg/dL (70-105) H 09/08/17 06:30 POC Glucose 212 MG/DL (70 - 105) H 09/08/17 16:10 Hemoglobin A1c % 7.5 % (4.0-6.0) H 09/07/17 05:18 Uric Acid 7.4 mg/dL (2.3-6.6) H 09/08/17 06:30 Calcium 10.0 mg/dL (8.6-10.3) 09/08/17 06:30 Phosphorus 2.3 mg/dL (2.5-5.0) L 09/08/17 06:30 Magnesium 2.3 mg/dL (1.9-2.7) 09/08/17 06:30 Total Bilirubin 0.3 mg/dL (0.3-1.0) 09/06/17 21:32 AST 23 U/L (13-39) 09/06/17 21:32 ALT 16 U/L (7-52) 09/06/17 21:32 Alkaline Phosphatase 132 U/L (34-104) H 09/06/17 21:32 Total Protein 8.1 gm/dL (6.0-8.3) 09/06/17 21:32 Albumin 4.0 gm/dL (3.7-5.3) 09/06/17 21:32 Globulin 4.1 gm/dL 09/06/17 21:32 Albumin/Globulin Ratio 1.0 (1.0-1.8) 09/06/17 21:32 Urine Source CATH 09/06/17 21:00 Urine Color YELLOW 09/06/17 21:00 Urine Clarity HAZY (CLEAR) 09/06/17 21:00 Urine pH 8.5 (4.6 - 8.0) 09/06/17 21:00 Ur Specific [place] 1.015 (1.005-1.030) 09/06/17 21:00 Urine Protein 100 mg/dL (NEGATIVE) H 09/06/17 21:00 Urine Glucose (UA) NEGATIVE mg/dL (NEGATIVE) 09/06/17 21:00 Urine Ketones NEGATIVE mg/dL (NEGATIVE) 09/06/17 21:00 Urine Blood NEGATIVE (NEGATIVE) 09/06/17 21:00 Urine Nitrate POSITIVE (NEGATIVE) H 09/06/17 21:00 Urine Bilirubin NEGATIVE (NEGATIVE) 09/06/17 21:00 Urine Urobilinogen 0.2 E.U./dL (0.2 - 1.0) 09/06/17 21:00 Ur Leukocyte Esterase LARGE (NEGATIVE) H 09/06/17 21:00 Urine RBC 0-2 /hpf (0-5) 09/06/17 21:00 Urine WBC >100 /hpf (0-5) H 09/06/17 21:00 Ur Epithelial Cells MODERATE /lpf (FEW) 09/06/17 21:00 Urine Bacteria MANY /hpf (NONE SEEN) 09/06/17 21:00 - Physical Exam Vitals and I&O: Vital Signs Temp 99 F 09/08/17 16:37 Pulse 84 09/08/17 16:37 Resp 19 09/08/17 16:37 BP 139/58 09/08/17 16:37 Pulse Ox 97 09/08/17 16:37 Intake & Output 09/07/17 09/08/17 09/08/17 18:59 06:59 18:59 Intake Total 2667.786 8450 1500 Output Total 600 1150 Balance 292.439 1587 350 Weight (lbs) 62.596 kg 66.406 kg Intake: Intake, IV Amount 289.624 7067 1000 Sodium Chloride 0.45% 1, 214.842 6699 1000 000 ml @ 125 mls/hr IV . Q8H [facility] Rx#:[id number] Tube Feeding 600 500 Output: Urine 600 1150 Other: # Bowel Movements 1 0 Active Medications: Current Medications Amlodipine Besylate (Norvasc) 5 mg GT DAILY NEENA Stop: 11/07/17 08:59 Last Admin: 09/08/17 11:41 Dose: 5 mg Ascorbic Acid (Vitamin C) 500 mg GT DAILY NEENA Stop: 11/07/17 08:59 Last Admin: 09/08/17 11:41 Dose: Not Given Heparin Sodium (Porcine) (Heparin) 5,000 units SUBQ Q12H NEENA Stop: 11/06/17 20:59 Last Admin: 09/08/17 09:01 Dose: 5,000 units Hydralazine HCl (Apresoline) 50 mg GT TID NEENA Stop: 11/06/17 13:59 Last Admin: 09/08/17 14:52 Dose: 50 mg Levofloxacin (Levaquin Pb) 500 mg in 100 mls @ 100 mls/hr IV Q24HR NEENA Stop: 11/06/17 23:29 Last Admin: 09/07/17 23:41 Dose: 100 mls/hr Sodium Chloride (Nacl 0.45%) 1,000 mls @ 125 mls/hr IV .Q8H [facility] Stop: 11/06/17 00:05 Last Admin: 09/08/17 17:19 Dose: 125 mls/hr Insulin Aspart (Novolog Insulin Sliding Scale) 0 units SUBQ Q6HR NEENA PRN Reason: Protocol Stop: 11/06/17 05:59 Last Admin: 09/08/17 17:11 Dose: 4 units Insulin Detemir (Levemir Insulin) 30 units SUBQ BIDAC NEENA PRN Reason: Protocol Stop: 11/06/17 16:29 Last Admin: 09/08/17 17:09 Dose: 30 units Lactobacillus Rhamnosus (Culturelle) 1 each PO DAILY NEENA Stop: 11/07/17 08:59 Last Admin: 09/08/17 09:00 Dose: 1 each Memantine (Namenda) 10 mg GT BID NEENA Stop: 11/06/17 16:59 Last Admin: 09/08/17 17:09 Dose: 10 mg Miscellaneous (Probiotic Screen) 1 ea PRN PRN PRN Reason: PROTOCOL Stop: 11/06/17 10:16 Miscellaneous (Vte Chemical Prophylaxis Screen/ Admission) 1 ea PRN PRN PRN Reason: PROTOCOL Stop: 11/06/17 13:52 Multivitamins/Vitamin C (Theragran) 1 tab GT DAILY NEENA Stop: 11/07/17 08:59 Last Admin: 09/08/17 09:00 Dose: 1 tab Zinc Sulfate (Zinc Sulfate) 220 mg GT DAILY NEENA Stop: 11/07/17 08:59 Last Admin: 09/08/17 09:00 Dose: 220 mg General: No acute distress HEENT: Atraumatic, PERRLA, Mucous membr. moist/pink Neck: Supple, +2 carotid pulse wo bruit Cardiovascular: Regular rate, Normal S1, Normal S2 Lungs: Other (decrease BS) Abdomen: Bowel sounds, Soft Extremities: no Edema Neurological: Sensation intact Skin: Rash Psych/Mental Status: Mood NL Assessment/Plan - Assessment Assessment: DOTTY on CKD Dehydration Ess Htn W/ CKD Type 2 DM W/CKD Alzh Dementia COPD PAD S/P B/L AKA - Plan Plan: Lab - Result Diagrams 09/08/17 06:30 09/08/17 06:30 Current Medications Amlodipine Besylate (Norvasc) 5 mg GT DAILY NEENA Stop: 11/07/17 08:59 Last Admin: 09/08/17 11:41 Dose: 5 mg Ascorbic Acid (Vitamin C) 500 mg GT DAILY NEENA Stop: 11/07/17 08:59 Last Admin: 09/08/17 11:41 Dose: Not Given Heparin Sodium (Porcine) (Heparin) 5,000 units SUBQ Q12H NEENA Stop: 11/06/17 20:59 Last Admin: 09/08/17 09:01 Dose: 5,000 units Hydralazine HCl (Apresoline) 50 mg GT TID NEENA Stop: 11/06/17 13:59 Last Admin: 09/08/17 14:52 Dose: 50 mg Levofloxacin (Levaquin Pb) 500 mg in 100 mls @ 100 mls/hr IV Q24HR NEENA Stop: 11/06/17 23:29 Last Admin: 09/07/17 23:41 Dose: 100 mls/hr Sodium Chloride (Nacl 0.45%) 1,000 mls @ 125 mls/hr IV .Q8H NEENA Stop: 11/06/17 00:05 Last Admin: 09/08/17 17:19 Dose: 125 mls/hr Insulin Aspart (Novolog Insulin Sliding Scale) 0 units SUBQ Q6HR NEENA PRN Reason: Protocol Stop: 11/06/17 05:59 Last Admin: 09/08/17 17:11 Dose: 4 units Insulin Detemir (Levemir Insulin) 30 units SUBQ BIDAC NEENA PRN Reason: Protocol Stop: 11/06/17 16:29 Last Admin: 09/08/17 17:09 Dose: 30 units Lactobacillus Rhamnosus (Culturelle) 1 each PO DAILY NEENA Stop: 11/07/17 08:59 Last Admin: 09/08/17 09:00 Dose: 1 each Memantine (Namenda) 10 mg GT BID NEENA Stop: 11/06/17 16:59 Last Admin: 09/08/17 17:09 Dose: 10 mg Miscellaneous (Probiotic Screen) 1 ea [facility] PRN PRN PRN Reason: PROTOCOL Stop: 11/06/17 10:16 Miscellaneous (Vte Chemical Prophylaxis Screen/ Admission) 1 ea PRN PRN PRN Reason: PROTOCOL Stop: 11/06/17 13:52 Multivitamins/Vitamin C (Theragran) 1 tab GT DAILY NEENA Stop: 11/07/17 08:59 Last Admin: 09/08/17 09:00 Dose: 1 tab Zinc Sulfate (Zinc Sulfate) 220 mg GT DAILY NEENA Stop: 11/07/17 08:59 Last Admin: 09/08/17 09:00 Dose: 220 mg Lab - Result Diagrams 09/08/17 06:30 09/08/17 06:30 Kidney fnc gradually improving continue IVF f/u electrolytes, cbc Nutritional Asmnt/Malnutr-PDOC - Dietary Evaluation Malnutrition Findings (Please click <Entered> for more info): Nutritional Asmnt/Malnutrition Start: 09/08/17 16: 43 Text: Status: Complete Freq: Document 09/08/17 16:44 LCHENG (Rec: 09/08/17 17:14 [email or web address] [id number]) Nutritional Asmnt/Malnutrition Patient General Information Nutritional Screening High Risk Diagnosis UTI, dehydration Pertinent Medical Hx/Surgical Hx HTN, DM, CAD, PEG, BKA Subjective Information Pt seen sleeping in bed during the time of visit. Verified TF running at 50ml/hr at this time. Per notes, residual<10ml . Pt is AKA bilateral noted. Current Diet Order/ Nutrition Support Diabetisource AC [id number], providing 1200kcal, 60g protein Pertinent Medications Vitamin C, novolog, levemir, culturelle, levofloxacin, thereagran, nacl 0.45%, zinc Pertinent Labs 09/08 Na 135L, K 4.5, Cl 101, BUN 44, Cr 1.5, glucose 186, POC 178-212, phos 2.3 09/07 a1c 7.9 Nutritional Hx/Data Height 1.52 m Height (Calculated Centimeters) 152.4 Current Weight (lbs) 62.596 kg Weight (Calculated Kilograms) 62.6 Weight (Calculated Grams) 80686.7 Body Mass Index (BMI) 26.9 GI Symptoms GI Symptoms None Last BM 09/07 Usual diet at home Glucerna 1.5 50ml x 20hrs daily at [facility] Skin Integrity/Comment: intact Estimated Nutritional Goals BEE in Kcals: Using Current wt Calories/Kcals/Kg 25-30 Kcals Calculated 3479-0015 Protein: Using Current wt Protein g/k-1.2 Protein Calculated 62-75 monitor renal labs Fluid: ml 3450-6517 Nutritional Problem 1. Problem Problem inadequate intake from enteral nutrition Etiology current TF regimen not meeting 100% of nutritional needs Signs/Symptoms: TF meeting 77% of nutritional needs Malnutrition Alert Protein-Calorie Malnutrition N/A Is there a minimum of two criteria No selected? Query Text:Check all the applicable criteria. A minimum of two criteria are recommended for diagnosis of either severe or non-severe malnutrition. Intervention/Recommendation Comments 1. Recommend modifying TF to Diabetisource AC 50ml x 24 hr daily. This will provide 1440kcal, 72g protein and 982ml water, meeting 90% of calorie needs and 100% of protein needs. 2. Monitor TF rate, tolerance, labs, skin integrity 3. F/U as high risk in 2-3 days, 09/10-09/11 Expected Outcomes/Goals Expected Outcomes/Goals 1. Pt to meet at least 90% of nutritional needs via nutrition support with tolerance 2. wt stability, labs to improve, skin to remain intact
[2017-09-08] MEDS: Levofloxacin 500mg/100mL 500 MG/100 ML BAG IV SCH (23:07)
[2017-09-09] MEDS: INSULIN ASPART SLIDING SCALE 100 UNITS/ML UNIT SUBQ SCH ×2 (05:59→12:53)
[2017-09-09 06:03] LABS: % BASOPHILS 0.7 % (0.0-2.0); % EOSINOPHILS 2.5 % (0.0-5.0); % LYMPHOCYTES 27.6 % (20.0-50.0); % MONOCYTES 10.9 % (2.0-10.0); % NEUTROPHILS 58.3 % (40.0-80.0); BASOPHILE ABSOLUTE 0.1 Th/cumm (0-0.2); EOSINOPHILE ABSOLUTE 0.2 Th/cmm (0.1-0.4); HEMATOCRIT 32.7 % (41.0-60); HEMOGLOBIN 11.1 gm/dL (12-16); LYMPHOCYTE ABSOLUTE 2.1 Th/cmm (1.5-3.0); MEAN CELL VOLUME 88.5 fl (81-100); MEAN CORPUSCULAR HGB CONC 33.9 pg (28.0-36.0); MEAN PLATELET VOLUME 10.4 fl; MONOCYTE ABSOLUTE 0.8 Th/cmm (0.3-1.0); NEUTROPHILE ABSOLUTE 4.3 Th/cmm (1.8-8.0); PLATELET COUNT 200 Th/cmm (150-400); RED CELL DISTRIBUTION WIDTH 14.1 % (11.5-20.0); WHITE BLOOD COUNT 7.5 Th/cmm (4.8-10.8)
[2017-09-09 06:29] LABS: ANION GAP 11.2 (7.0-16.0); BUN - UREA NITROGEN 37 mg/dL (7-25); CARBON DIOXIDE 26.3 mEq/L (21.0-31.0); CHLORIDE 100 mEq/L (98-107); CREATININE - SERUM 1.4 mg/dL (0.6-1.2); GLUCOSE 186 mg/dL (70-105); POTASSIUM SERUM 4.5 mEq/L (3.5-5.1); SODIUM SERUM 133 mEq/L (136-145)
[2017-09-09] MEDS: Insulin Detemir 100 units/mL 10mL Vial SUBQ SCH (06:41)
--- NOTE | 2017-09-09 09:08 | Infectious Disease Prog Note ---
Infectious Disease Subjective - Review of Systems Service Date: 09/09/17 Subjective: There is no new change, there is no fever, Infectious Disease Objective - Results Result Diagrams: 09/09/17 05:30 09/09/17 05:30 Recent Labs: Laboratory Last Values WBC 7.5 Th/cmm (4.8-10.8) 09/09/17 05:30 RBC 3.70 Mil/cmm (3.80-5.20) L 09/09/17 05:30 Hgb 11.1 gm/dL (12-16) L 09/09/17 05:30 Hct 32.7 % (41.0-60) L 09/09/17 05:30 MCV 88.5 fl (81-100) 09/09/17 05:30 MCH 30.0 pg (27.0-31.0) 09/09/17 05:30 MCHC Differential 33.9 pg (28.0-36.0) 09/09/17 05:30 RDW 14.1 % (11.5-20.0) 09/09/17 05:30 Plt Count 200 Th/cmm (150-400) 09/09/17 05:30 MPV 10.4 fl 09/09/17 05:30 Neutrophils % 58.3 % (40.0-80.0) 09/09/17 05:30 Band Neutrophils % 7 % (0-10) 09/06/17 21:32 Lymphocytes % 27.6 % (20.0-50.0) 09/09/17 05:30 Monocytes % 10.9 % (2.0-10.0) H 09/09/17 05:30 Eosinophils % 2.5 % (0.0-5.0) 09/09/17 05:30 Basophils % 0.7 % (0.0-2.0) 09/09/17 05:30 Neutrophils (Manual) 45 % (40-80) 09/06/17 21:32 Lymphocytes 33 % (20-50) 09/06/17 21:32 Monocytes 6 % (2-10) 09/06/17 21:32 Eosinophils 7 % (0-5) H 09/06/17 21:32 Atypical Lymphocytes 2 % 09/06/17 21:32 Sodium 133 mEq/L (136-145) L 09/09/17 05:30 Potassium 4.5 mEq/L (3.5-5.1) 09/09/17 05:30 Chloride 100 mEq/L (98-107) 09/09/17 05:30 Carbon Dioxide 26.3 mEq/L (21.0-31.0) 09/09/17 05:30 Anion Gap 11.2 (7.0-16.0) 09/09/17 05:30 BUN 37 mg/dL (7-25) H 09/09/17 05:30 Creatinine 1.4 mg/dL (0.6-1.2) H 09/09/17 05:30 Est GFR ( Amer) TNP 09/09/17 05:30 Est GFR (Non-Af Amer) TNP 09/09/17 05:30 BUN/Creatinine Ratio 26.4 09/09/17 05:30 Glucose 186 mg/dL (70-105) H 09/09/17 05:30 POC Glucose 215 MG/DL (70 - 105) H 09/09/17 05:02 Hemoglobin A1c % 7.5 % (4.0-6.0) H 09/07/17 05:18 Uric Acid 7.4 mg/dL (2.3-6.6) H 09/08/17 06:30 Calcium 10.0 mg/dL (8.6-10.3) 09/09/17 05:30 Phosphorus 2.3 mg/dL (2.5-5.0) L 09/08/17 06:30 Magnesium 2.3 mg/dL (1.9-2.7) 09/08/17 06:30 Total Bilirubin 0.3 mg/dL (0.3-1.0) 09/06/17 21:32 AST 23 U/L (13-39) 09/06/17 21:32 ALT 16 U/L (7-52) 09/06/17 21:32 Alkaline Phosphatase 132 U/L (34-104) H 09/06/17 21:32 Total Protein 8.1 gm/dL (6.0-8.3) 09/06/17 21:32 Albumin 4.0 gm/dL (3.7-5.3) 09/06/17 21:32 Globulin 4.1 gm/dL 09/06/17 21:32 Albumin/Globulin Ratio 1.0 (1.0-1.8) 09/06/17 21:32 Urine Source CATH 09/06/17 21:00 Urine Color YELLOW 09/06/17 21:00 Urine Clarity HAZY (CLEAR) 09/06/17 21:00 Urine pH 8.5 (4.6 - 8.0) 09/06/17 21:00 Ur Specific [place] 1.015 (1.005-1.030) 09/06/17 21:00 Urine Protein 100 mg/dL (NEGATIVE) H 09/06/17 21:00 Urine Glucose (UA) NEGATIVE mg/dL (NEGATIVE) 09/06/17 21:00 Urine Ketones NEGATIVE mg/dL (NEGATIVE) 09/06/17 21:00 Urine Blood NEGATIVE (NEGATIVE) 09/06/17 21:00 Urine Nitrate POSITIVE (NEGATIVE) H 09/06/17 21:00 Urine Bilirubin NEGATIVE (NEGATIVE) 09/06/17 21:00 Urine Urobilinogen 0.2 E.U./dL (0.2 - 1.0) 09/06/17 21:00 Ur Leukocyte Esterase LARGE (NEGATIVE) H 09/06/17 21:00 Urine RBC 0-2 /hpf (0-5) 09/06/17 21:00 Urine WBC >100 /hpf (0-5) H 09/06/17 21:00 Ur Epithelial Cells MODERATE /lpf (FEW) 09/06/17 21:00 Urine Bacteria MANY /hpf (NONE SEEN) 09/06/17 21:00 - Physical Exam Vitals and I&O: Vital Signs Temp 97.7 F 09/09/17 04:00 Pulse 89 09/09/17 04:00 Resp 16 09/09/17 08:00 BP 139/54 09/09/17 04:00 Pulse Ox 98 09/09/17 04:00 Intake & Output 09/08/17 09/09/17 09/09/17 18:59 06:59 18:59 Intake Total 1500 727.083 Output Total 1150 1200 Balance 350 -472.917 Weight (lbs) 66.406 kg 67.132 kg Intake: Intake, IV Amount 1000 727.083 Sodium Chloride 0.45% 1, 1000 727.083 000 ml @ 125 mls/hr IV . Q8H [facility] Rx#:[id number] Tube Feeding 500 Output: Urine 1150 1200 Other: # Bowel Movements 0 Active Medications: Current Medications Amlodipine Besylate (Norvasc) 5 mg GT DAILY NEENA Stop: 11/07/17 08:59 Last Admin: 09/08/17 11:41 Dose: 5 mg Ascorbic Acid (Vitamin C) 500 mg GT DAILY NEENA Stop: 11/07/17 08:59 Last Admin: 09/08/17 11:41 Dose: Not Given Heparin Sodium (Porcine) (Heparin) 5,000 units SUBQ Q12H NEENA Stop: 11/06/17 20:59 Last Admin: 09/08/17 20:30 Dose: 5,000 units Hydralazine HCl (Apresoline) 50 mg GT TID NEENA Stop: 11/06/17 13:59 Last Admin: 09/08/17 20:28 Dose: 50 mg Levofloxacin (Levaquin Pb) 500 mg in 100 mls @ 100 mls/hr IV Q24HR NEENA Stop: 11/06/17 23:29 Last Admin: 09/08/17 23:07 Dose: 100 mls/hr Sodium Chloride (Nacl 0.45%) 1,000 mls @ 125 mls/hr IV .Q8H [facility] Stop: 11/06/17 00:05 Last Admin: 09/08/17 23:08 Dose: 125 mls/hr Insulin Aspart (Novolog Insulin Sliding Scale) 0 units SUBQ Q6HR NEENA PRN Reason: Protocol Stop: 11/06/17 05:59 Last Admin: 09/09/17 05:59 Dose: 4 units Insulin Detemir (Levemir Insulin) 30 units SUBQ BIDAC NEENA PRN Reason: Protocol Stop: 11/06/17 16:29 Last Admin: 09/09/17 06:41 Dose: 30 units Lactobacillus Rhamnosus (Culturelle) 1 each PO DAILY NEENA Stop: 11/07/17 08:59 Last Admin: 09/08/17 09:00 Dose: 1 each Memantine (Namenda) 10 mg GT BID NEENA Stop: 11/06/17 16:59 Last Admin: 09/08/17 17:09 Dose: 10 mg Miscellaneous (Probiotic Screen) 1 ea PRN PRN PRN Reason: PROTOCOL Stop: 11/06/17 10:16 Miscellaneous (Vte Chemical Prophylaxis Screen/ Admission) 1 ea PRN PRN PRN Reason: PROTOCOL Stop: 11/06/17 13:52 Multivitamins/Vitamin C (Theragran) 1 tab GT DAILY NEENA Stop: 11/07/17 08:59 Last Admin: 09/08/17 09:00 Dose: 1 tab Zinc Sulfate (Zinc Sulfate) 220 mg GT DAILY NEENA Stop: 11/07/17 08:59 Last Admin: 09/08/17 09:00 Dose: 220 mg General: no acute distress, well developed, well nourished HEENT: atraumatic, normocephalic, PERRLA, EOMI Neck: supple, no thyromegaly Cardiovascular: S1S2, regular Lungs: clear to auscultation bilaterally, clear to percussion Abdomen: soft, no tender, no distended Extremities: no cyanosis, no clubbing, no edema Neurological: awake, alert Infectious Disease Assmt/Plan - Assessment Assessment: 1. Urinary tract infection. 2. Diabetes mellitus, type 2. 3. Hypertension. 4. Dementia. 5. Coronary artery disease. - Plan Plan: change Levaquin 250 mg to po for 5 more days. Nutritional Asmnt/Malnutr-PDOC - Dietary Evaluation Malnutrition Findings (Please click <Entered> for more info): Nutritional Asmnt/Malnutrition Start: 09/08/17 16: 43 Text: Status: Complete Freq: Document 09/08/17 16:44 HEN (Rec: 09/08/17 17:14 JOURDAN [id number]) Nutritional Asmnt/Malnutrition Patient General Information Nutritional Screening High Risk Diagnosis UTI, dehydration Pertinent Medical Hx/Surgical Hx HTN, DM, CAD, PEG, BKA Subjective Information Pt seen sleeping in bed during the time of visit. Verified TF running at 50ml/hr at this time. Per notes, residual<10ml . Pt is AKA bilateral noted. Current Diet Order/ Nutrition Support Diabetisource AC [id number], providing 1200kcal, 60g protein Pertinent Medications Vitamin C, novolog, levemir, culturelle, levofloxacin, thereagran, nacl 0.45%, zinc Pertinent Labs 09/08 Na 135L, K 4.5, Cl 101, BUN 44, Cr 1.5, glucose 186, POC 178-212, phos 2.3 09/07 a1c 7.9 Nutritional Hx/Data Height 1.52 m Height (Calculated Centimeters) 152.4 Current Weight (lbs) 62.596 kg Weight (Calculated Kilograms) 62.6 Weight (Calculated Grams) 22894.7 Body Mass Index (BMI) 26.9 GI Symptoms GI Symptoms None Last BM 09/07 Usual diet at home Glucerna 1.5 50ml x 20hrs daily at [facility] Skin Integrity/Comment: intact Estimated Nutritional Goals BEE in Kcals: Using Current wt Calories/Kcals/Kg 25-30 Kcals Calculated 6700-6666 Protein: Using Current wt Protein g/k-1.2 Protein Calculated 62-75 monitor renal labs Fluid: ml [id number] Nutritional Problem 1. Problem Problem inadequate intake from enteral nutrition Etiology current TF regimen not meeting 100% of nutritional needs Signs/Symptoms: TF meeting 77% of nutritional needs Malnutrition Alert Protein-Calorie Malnutrition N/A Is there a minimum of two criteria No selected? Query Text:Check all the applicable criteria. A minimum of two criteria are recommended for diagnosis of either severe or non-severe malnutrition. Intervention/Recommendation Comments 1. Recommend modifying TF to Diabetisource AC 50ml x 24 hr daily. This will provide 1440kcal, 72g protein and 982ml water, meeting 90% of calorie needs and 100% of protein needs. 2. Monitor TF rate, tolerance, labs, skin integrity 3. F/U as high risk in 2-3 days, 09/10-09/11 Expected Outcomes/Goals Expected Outcomes/Goals 1. Pt to meet at least 90% of nutritional needs via nutrition support with tolerance 2. wt stability, labs to improve, skin to remain intact
[2017-09-09] MEDS: Lactobacillus Rhamnosus 10 Billion CFU Capsule PO SCH (10:13)
[2017-09-09] MEDS: Multivitamin Tab GT SCH (10:13)
[2017-09-09] MEDS: Ascorbic Acid 500 mg/5 mL UDC GT SCH (10:21)
[2017-09-09] MEDS ORDERED: Sodium Chloride 0.45% 1,000 ML IV SCH (14:32)
--- NOTE | 2017-09-09 14:35 | General Progress Note ---
Subjective - Review of Systems Service Date: 09/09/17 Subjective: sleeping, nonverbal, comfortable Objective - Results Result Diagrams: 09/09/17 05:30 09/09/17 05:30 Recent Labs: Laboratory Last Values WBC 7.5 Th/cmm (4.8-10.8) 09/09/17 05:30 RBC 3.70 Mil/cmm (3.80-5.20) L 09/09/17 05:30 Hgb 11.1 gm/dL (12-16) L 09/09/17 05:30 Hct 32.7 % (41.0-60) L 09/09/17 05:30 MCV 88.5 fl (81-100) 09/09/17 05:30 MCH 30.0 pg (27.0-31.0) 09/09/17 05:30 MCHC Differential 33.9 pg (28.0-36.0) 09/09/17 05:30 RDW 14.1 % (11.5-20.0) 09/09/17 05:30 Plt Count 200 Th/cmm (150-400) 09/09/17 05:30 MPV 10.4 fl 09/09/17 05:30 Neutrophils % 58.3 % (40.0-80.0) 09/09/17 05:30 Band Neutrophils % 7 % (0-10) 09/06/17 21:32 Lymphocytes % 27.6 % (20.0-50.0) 09/09/17 05:30 Monocytes % 10.9 % (2.0-10.0) H 09/09/17 05:30 Eosinophils % 2.5 % (0.0-5.0) 09/09/17 05:30 Basophils % 0.7 % (0.0-2.0) 09/09/17 05:30 Neutrophils (Manual) 45 % (40-80) 09/06/17 21:32 Lymphocytes 33 % (20-50) 09/06/17 21:32 Monocytes 6 % (2-10) 09/06/17 21:32 Eosinophils 7 % (0-5) H 09/06/17 21:32 Atypical Lymphocytes 2 % 09/06/17 21:32 Sodium 133 mEq/L (136-145) L 09/09/17 05:30 Potassium 4.5 mEq/L (3.5-5.1) 09/09/17 05:30 Chloride 100 mEq/L (98-107) 09/09/17 05:30 Carbon Dioxide 26.3 mEq/L (21.0-31.0) 09/09/17 05:30 Anion Gap 11.2 (7.0-16.0) 09/09/17 05:30 BUN 37 mg/dL (7-25) H 09/09/17 05:30 Creatinine 1.4 mg/dL (0.6-1.2) H 09/09/17 05:30 Est GFR ( Amer) TNP 09/09/17 05:30 Est GFR (Non-Af Amer) TNP 09/09/17 05:30 BUN/Creatinine Ratio 26.4 09/09/17 05:30 Glucose 186 mg/dL (70-105) H 09/09/17 05:30 POC Glucose 219 MG/DL (70 - 105) H 09/09/17 12:50 Hemoglobin A1c % 7.5 % (4.0-6.0) H 09/07/17 05:18 Uric Acid 7.4 mg/dL (2.3-6.6) H 09/08/17 06:30 Calcium 10.0 mg/dL (8.6-10.3) 09/09/17 05:30 Phosphorus 2.3 mg/dL (2.5-5.0) L 09/08/17 06:30 Magnesium 2.3 mg/dL (1.9-2.7) 09/08/17 06:30 Total Bilirubin 0.3 mg/dL (0.3-1.0) 09/06/17 21:32 AST 23 U/L (13-39) 09/06/17 21:32 ALT 16 U/L (7-52) 09/06/17 21:32 Alkaline Phosphatase 132 U/L (34-104) H 09/06/17 21:32 Total Protein 8.1 gm/dL (6.0-8.3) 09/06/17 21:32 Albumin 4.0 gm/dL (3.7-5.3) 09/06/17 21:32 Globulin 4.1 gm/dL 09/06/17 21:32 Albumin/Globulin Ratio 1.0 (1.0-1.8) 09/06/17 21:32 Urine Source CATH 09/06/17 21:00 Urine Color YELLOW 09/06/17 21:00 Urine Clarity HAZY (CLEAR) 09/06/17 21:00 Urine pH 8.5 (4.6 - 8.0) 09/06/17 21:00 Ur Specific [place] 1.015 (1.005-1.030) 09/06/17 21:00 Urine Protein 100 mg/dL (NEGATIVE) H 09/06/17 21:00 Urine Glucose (UA) NEGATIVE mg/dL (NEGATIVE) 09/06/17 21:00 Urine Ketones NEGATIVE mg/dL (NEGATIVE) 09/06/17 21:00 Urine Blood NEGATIVE (NEGATIVE) 09/06/17 21:00 Urine Nitrate POSITIVE (NEGATIVE) H 09/06/17 21:00 Urine Bilirubin NEGATIVE (NEGATIVE) 09/06/17 21:00 Urine Urobilinogen 0.2 E.U./dL (0.2 - 1.0) 09/06/17 21:00 Ur Leukocyte Esterase LARGE (NEGATIVE) H 09/06/17 21:00 Urine RBC 0-2 /hpf (0-5) 09/06/17 21:00 Urine WBC >100 /hpf (0-5) H 09/06/17 21:00 Ur Epithelial Cells MODERATE /lpf (FEW) 09/06/17 21:00 Urine Bacteria MANY /hpf (NONE SEEN) 09/06/17 21:00 - Physical Exam Vitals and I&O: Vital Signs Temp 99.1 F 09/09/17 12:00 Pulse 85 09/09/17 12:00 Resp 16 09/09/17 12:00 BP 127/49 09/09/17 12:00 Pulse Ox 100 09/09/17 12:00 Intake & Output 09/08/17 09/09/17 09/09/17 18:59 06:59 18:59 Intake Total 1500 727.083 Output Total 1150 1200 Balance 350 -472.917 Weight (lbs) 66.406 kg 67.132 kg Intake: Intake, IV Amount 1000 727.083 Sodium Chloride 0.45% 1, 1000 727.083 000 ml @ 125 mls/hr IV . Q8H NEENA Rx#:[id number] Tube Feeding 500 Output: Urine 1150 1200 Other: # Bowel Movements 0 Active Medications: Current Medications Amlodipine Besylate (Norvasc) 5 mg GT DAILY NEENA Stop: 11/07/17 08:59 Last Admin: 09/09/17 10:13 Dose: 5 mg Ascorbic Acid (Vitamin C) 500 mg GT DAILY NEENA Stop: 11/07/17 08:59 Last Admin: 09/09/17 10:21 Dose: Not Given Heparin Sodium (Porcine) (Heparin) 5,000 units SUBQ Q12H NEENA Stop: 11/06/17 20:59 Last Admin: 09/09/17 10:14 Dose: 5,000 units Hydralazine HCl (Apresoline) 50 mg GT TID NEENA Stop: 11/06/17 13:59 Last Admin: 09/09/17 10:13 Dose: 50 mg Sodium Chloride (Nacl 0.45%) 1,000 mls @ 70 mls/hr IV .[id number] [facility] Stop: 11/06/17 00:05 Insulin Aspart (Novolog Insulin Sliding Scale) 0 units SUBQ Q6HR NEENA PRN Reason: Protocol Stop: 11/06/17 05:59 Last Admin: 09/09/17 12:53 Dose: 4 units Insulin Detemir (Levemir Insulin) 30 units SUBQ BIDAC NEENA PRN Reason: Protocol Stop: 11/06/17 16:29 Last Admin: 09/09/17 06:41 Dose: 30 units Lactobacillus Rhamnosus (Culturelle) 1 each PO DAILY NEENA Stop: 11/07/17 08:59 Last Admin: 09/09/17 10:13 Dose: 1 each Levofloxacin (Levaquin) 250 mg PO DAILY NEENA Stop: 11/09/17 08:59 Memantine (Namenda) 10 mg GT BID NEENA Stop: 11/06/17 16:59 Last Admin: 09/09/17 10:13 Dose: 10 mg Miscellaneous (Probiotic Screen) 1 ea PRN PRN PRN Reason: PROTOCOL Stop: 11/06/17 10:16 Miscellaneous (Vte Chemical Prophylaxis Screen/ Admission) 1 ea PRN PRN PRN Reason: PROTOCOL Stop: 11/06/17 13:52 Multivitamins/Vitamin C (Theragran) 1 tab GT DAILY NEENA Stop: 11/07/17 08:59 Last Admin: 09/09/17 10:13 Dose: 1 tab Zinc Sulfate (Zinc Sulfate) 220 mg GT DAILY NEENA Stop: 11/07/17 08:59 Last Admin: 09/09/17 10:13 Dose: 220 mg General: No acute distress HEENT: Atraumatic, PERRLA, Mucous membr. moist/pink Neck: Supple, +2 carotid pulse wo bruit Cardiovascular: Regular rate, Normal S1, Normal S2 Lungs: Other (decrease BS) Abdomen: Bowel sounds, Soft Extremities: no Edema Neurological: Sensation intact Skin: Rash Psych/Mental Status: Mood NL Assessment/Plan - Assessment Assessment: DOTTY on CKD Dehydration Ess Htn W/ CKD Type 2 DM W/CKD Alzh Dementia COPD PAD S/P B/L AKA - Plan Plan: Lab - Result Diagrams 09/08/17 06:30 09/08/17 06:30 Current Medications Amlodipine Besylate (Norvasc) 5 mg GT DAILY NEENA Stop: 11/07/17 08:59 Last Admin: 09/08/17 11:41 Dose: 5 mg Ascorbic Acid (Vitamin C) 500 mg GT DAILY NEENA Stop: 11/07/17 08:59 Last Admin: 09/08/17 11:41 Dose: Not Given Heparin Sodium (Porcine) (Heparin) 5,000 units SUBQ Q12H [facility]EENA Stop: 11/06/17 20:59 Last Admin: 09/08/17 09:01 Dose: 5,000 units Hydralazine HCl (Apresoline) 50 mg GT TID NEENA Stop: 11/06/17 13:59 Last Admin: 09/08/17 14:52 Dose: 50 mg Levofloxacin (Levaquin Pb) 500 mg in 100 mls @ 100 mls/hr IV Q24HR [facility]EENA Stop: 11/06/17 23:29 Last Admin: 09/07/17 23:41 Dose: 100 mls/hr Sodium Chloride (Nacl 0.45%) 1,000 mls @ 125 mls/hr IV .Q8H [facility] Stop: 11/06/17 00:05 Last Admin: 09/08/17 17:19 Dose: 125 mls/hr Insulin Aspart (Novolog Insulin Sliding Scale) 0 units SUBQ Q6HR NEENA PRN Reason: Protocol Stop: 11/06/17 05:59 Last Admin: 09/08/17 17:11 Dose: 4 units Insulin Detemir (Levemir Insulin) 30 units SUBQ BIDAC NEENA PRN Reason: Protocol Stop: 11/06/17 16:29 Last Admin: 09/08/17 17:09 Dose: 30 units Lactobacillus Rhamnosus (Culturelle) 1 each PO DAILY NEENA Stop: 11/07/17 08:59 Last Admin: 09/08/17 09:00 Dose: 1 each Memantine (Namenda) 10 mg GT BID NEENA Stop: 11/06/17 16:59 Last Admin: 09/08/17 17:09 Dose: 10 mg Miscellaneous (Probiotic Screen) 1 ea PRN PRN PRN Reason: PROTOCOL Stop: 11/06/17 10:16 Miscellaneous (Vte Chemical Prophylaxis Screen/ Admission) 1 ea PRN PRN PRN Reason: PROTOCOL Stop: 11/06/17 13:52 Multivitamins/Vitamin C (Theragran) 1 tab GT DAILY NEENA Stop: 11/07/17 08:59 Last Admin: 09/08/17 09:00 Dose: 1 tab Zinc Sulfate (Zinc Sulfate) 220 mg GT DAILY NEENA Stop: 11/07/17 08:59 Last Admin: 09/08/17 09:00 Dose: 220 mg Lab - Result Diagrams 09/09/17 05:30 09/09/17 05:30 Kidney fnc gradually improving continue IVF, but decrease to 70 ml/hr f/u electrolytes, cbc Nutritional Asmnt/Malnutr-PDOC - Dietary Evaluation Malnutrition Findings (Please click <Entered> for more info): Nutritional Asmnt/Malnutrition Start: 09/08/17 16: 43 Text: Status: Complete Freq: Document 09/08/17 16:44 LCHENG (Rec: 09/08/17 17:14 LCHENG [email or web address]) Nutritional Asmnt/Malnutrition Patient General Information Nutritional Screening High Risk Diagnosis UTI, dehydration Pertinent Medical Hx/Surgical Hx HTN, DM, CAD, PEG, BKA Subjective Information Pt seen sleeping in bed during the time of visit. Verified TF running at 50ml/hr at this time. Per notes, residual<10ml . Pt is AKA bilateral noted. Current Diet Order/ Nutrition Support Diabetisource AC [id number], providing 1200kcal, 60g protein Pertinent Medications Vitamin C, novolog, levemir, culturelle, levofloxacin, thereagran, nacl 0.45%, zinc Pertinent Labs 09/08 Na 135L, K 4.5, Cl 101, BUN 44, Cr 1.5, glucose 186, POC 178-212, phos 2.3 09/07 a1c 7.9 Nutritional Hx/Data Height 1.52 m Height (Calculated Centimeters) 152.4 Current Weight (lbs) 62.596 kg Weight (Calculated Kilograms) 62.6 Weight (Calculated Grams) 84712.7 Body Mass Index (BMI) 26.9 GI Symptoms GI Symptoms None Last BM 09/07 Usual diet at home Glucerna 1.5 50ml x 20hrs daily at [facility] Skin Integrity/Comment: intact Estimated Nutritional Goals BEE in Kcals: Using Current wt Calories/Kcals/Kg 25-30 Kcals Calculated 6562-4956 Protein: Using Current wt Protein g/k-1.2 Protein Calculated 62-75 monitor renal labs Fluid: ml 6149-8533 Nutritional Problem 1. Problem Problem inadequate intake from enteral nutrition Etiology current TF regimen not meeting 100% of nutritional needs Signs/Symptoms: TF meeting 77% of nutritional needs Malnutrition Alert Protein-Calorie Malnutrition N/A Is there a minimum of two criteria No selected? Query Text:Check all the applicable criteria. A minimum of two criteria are recommended for diagnosis of either severe or non-severe malnutrition. Intervention/Recommendation Comments 1. Recommend modifying TF to Diabetisource AC 50ml x 24 hr daily. This will provide 1440kcal, 72g protein and 982ml water, meeting 90% of calorie needs and 100% of protein needs. 2. Monitor TF rate, tolerance, labs, skin integrity 3. F/U as high risk in 2-3 days, 09/10-09/11 Expected Outcomes/Goals Expected Outcomes/Goals 1. Pt to meet at least 90% of nutritional needs via nutrition support with tolerance 2. wt stability, labs to improve, skin to remain intact
--- NOTE | 2017-09-09 16:30 | General Progress Note ---
Subjective - Review of Systems Events since last encounter: no distress nonverbal Objective - Results Result Diagrams: 09/09/17 05:30 09/09/17 05:30 Recent Labs: Laboratory Last Values WBC 7.5 Th/cmm (4.8-10.8) 09/09/17 05:30 RBC 3.70 Mil/cmm (3.80-5.20) L 09/09/17 05:30 Hgb 11.1 gm/dL (12-16) L 09/09/17 05:30 Hct 32.7 % (41.0-60) L 09/09/17 05:30 MCV 88.5 fl (81-100) 09/09/17 05:30 MCH 30.0 pg (27.0-31.0) 09/09/17 05:30 MCHC Differential 33.9 pg (28.0-36.0) 09/09/17 05:30 RDW 14.1 % (11.5-20.0) 09/09/17 05:30 Plt Count 200 Th/cmm (150-400) 09/09/17 05:30 MPV 10.4 fl 09/09/17 05:30 Neutrophils % 58.3 % (40.0-80.0) 09/09/17 05:30 Band Neutrophils % 7 % (0-10) 09/06/17 21:32 Lymphocytes % 27.6 % (20.0-50.0) 09/09/17 05:30 Monocytes % 10.9 % (2.0-10.0) H 09/09/17 05:30 Eosinophils % 2.5 % (0.0-5.0) 09/09/17 05:30 Basophils % 0.7 % (0.0-2.0) 09/09/17 05:30 Neutrophils (Manual) 45 % (40-80) 09/06/17 21:32 Lymphocytes 33 % (20-50) 09/06/17 21:32 Monocytes 6 % (2-10) 09/06/17 21:32 Eosinophils 7 % (0-5) H 09/06/17 21:32 Atypical Lymphocytes 2 % 09/06/17 21:32 Sodium 133 mEq/L (136-145) L 09/09/17 05:30 Potassium 4.5 mEq/L (3.5-5.1) 09/09/17 05:30 Chloride 100 mEq/L (98-107) 09/09/17 05:30 Carbon Dioxide 26.3 mEq/L (21.0-31.0) 09/09/17 05:30 Anion Gap 11.2 (7.0-16.0) 09/09/17 05:30 BUN 37 mg/dL (7-25) H 09/09/17 05:30 Creatinine 1.4 mg/dL (0.6-1.2) H 09/09/17 05:30 Est GFR ( Amer) TNP 09/09/17 05:30 Est GFR (Non-Af Amer) TNP 09/09/17 05:30 BUN/Creatinine Ratio 26.4 09/09/17 05:30 Glucose 186 mg/dL (70-105) H 09/09/17 05:30 POC Glucose 219 MG/DL (70 - 105) H 09/09/17 12:50 Hemoglobin A1c % 7.5 % (4.0-6.0) H 09/07/17 05:18 Uric Acid 7.4 mg/dL (2.3-6.6) H 09/08/17 06:30 Calcium 10.0 mg/dL (8.6-10.3) 09/09/17 05:30 Phosphorus 2.3 mg/dL (2.5-5.0) L 09/08/17 06:30 Magnesium 2.3 mg/dL (1.9-2.7) 09/08/17 06:30 Total Bilirubin 0.3 mg/dL (0.3-1.0) 09/06/17 21:32 AST 23 U/L (13-39) 09/06/17 21:32 ALT 16 U/L (7-52) 09/06/17 21:32 Alkaline Phosphatase 132 U/L (34-104) H 09/06/17 21:32 Total Protein 8.1 gm/dL (6.0-8.3) 09/06/17 21:32 Albumin 4.0 gm/dL (3.7-5.3) 09/06/17 21:32 Globulin 4.1 gm/dL 09/06/17 21:32 Albumin/Globulin Ratio 1.0 (1.0-1.8) 09/06/17 21:32 Urine Source CATH 12/18/17 21:00 Urine Color YELLOW 09/06/17 21:00 Urine Clarity HAZY (CLEAR) 09/06/17 21:00 Urine pH 8.5 (4.6 - 8.0) 09/06/17 21:00 Ur Specific [place] 1.015 (1.005-1.030) 09/06/17 21:00 Urine Protein 100 mg/dL (NEGATIVE) H 09/06/17 21:00 Urine Glucose (UA) NEGATIVE mg/dL (NEGATIVE) 09/06/17 21:00 Urine Ketones NEGATIVE mg/dL (NEGATIVE) 09/06/17 21:00 Urine Blood NEGATIVE (NEGATIVE) 09/06/17 21:00 Urine Nitrate POSITIVE (NEGATIVE) H 09/06/17 21:00 Urine Bilirubin NEGATIVE (NEGATIVE) 09/06/17 21:00 Urine Urobilinogen 0.2 E.U./dL (0.2 - 1.0) 09/06/17 21:00 Ur Leukocyte Esterase LARGE (NEGATIVE) H 09/06/17 21:00 Urine RBC 0-2 /hpf (0-5) 09/06/17 21:00 Urine WBC >100 /hpf (0-5) H 09/06/17 21:00 Ur Epithelial Cells MODERATE /lpf (FEW) 09/06/17 21:00 Urine Bacteria MANY /hpf (NONE SEEN) 09/06/17 21:00 - Physical Exam Vitals and I&O: Vital Signs Temp 99.1 F 09/09/17 12:00 Pulse 85 09/09/17 12:00 Resp 16 09/09/17 12:00 BP 127/49 09/09/17 12:00 Pulse Ox 100 09/09/17 12:00 Intake & Output 09/08/17 09/09/17 09/09/17 18:59 06:59 18:59 Intake Total 1500 727.083 Output Total 1150 1200 Balance 350 -472.917 Weight (lbs) 66.406 kg 67.132 kg Intake: Intake, IV Amount 1000 727.083 Sodium Chloride 0.45% 1, 1000 727.083 000 ml @ 125 mls/hr IV . Q8H NEENA Rx#:[id number] Tube Feeding 500 Output: Urine 1150 1200 Other: # Bowel Movements 0 Active Medications: Current Medications Amlodipine Besylate (Norvasc) 5 mg GT DAILY NEENA Stop: 11/07/17 08:59 Last Admin: 09/09/17 10:13 Dose: 5 mg Ascorbic Acid (Vitamin C) 500 mg GT DAILY NEENA Stop: 11/07/17 08:59 Last Admin: 09/09/17 10:21 Dose: Not Given Heparin Sodium (Porcine) (Heparin) 5,000 units SUBQ Q12H NEENA Stop: 11/06/17 20:59 Last Admin: 09/09/17 10:14 Dose: 5,000 units Hydralazine HCl (Apresoline) 50 mg GT TID NEENA Stop: 11/06/17 13:59 Last Admin: 09/09/17 10:13 Dose: 50 mg Sodium Chloride (Nacl 0.45%) 1,000 mls @ 70 mls/hr IV .[id number] [facility] Stop: 11/06/17 00:05 Insulin Aspart (Novolog Insulin Sliding Scale) 0 units SUBQ Q6HR NEENA PRN Reason: Protocol Stop: 11/06/17 05:59 Last Admin: 09/09/17 12:53 Dose: 4 units Insulin Detemir (Levemir Insulin) 30 units SUBQ BIDAC NEENA PRN Reason: Protocol Stop: 11/06/17 16:29 Last Admin: 09/09/17 06:41 Dose: 30 units Lactobacillus Rhamnosus (Culturelle) 1 each PO DAILY NEENA Stop: 11/07/17 08:59 Last Admin: 09/09/17 10:13 Dose: 1 each Levofloxacin (Levaquin) 250 mg PO DAILY NEENA Stop: 11/09/17 08:59 Memantine (Namenda) 10 mg GT BID NEENA Stop: 11/06/17 16:59 Last Admin: 09/09/17 10:13 Dose: 10 mg Miscellaneous (Probiotic Screen) 1 ea MC PRN PRN PRN Reason: PROTOCOL Stop: 11/06/17 10:16 Miscellaneous (Vte Chemical Prophylaxis Screen/ Admission) 1 ea PRN PRN PRN Reason: PROTOCOL Stop: 11/06/17 13:52 Multivitamins/Vitamin C (Theragran) 1 tab GT DAILY NEENA Stop: 11/07/17 08:59 Last Admin: 09/09/17 10:13 Dose: 1 tab Zinc Sulfate (Zinc Sulfate) 220 mg GT DAILY [facility] Stop: 11/07/17 08:59 Last Admin: 09/09/17 10:13 Dose: 220 mg General: No acute distress HEENT: Atraumatic, PERRLA, Mucous membr. moist/pink Neck: Supple, +2 carotid pulse wo bruit Cardiovascular: Regular rate, Normal S1, Normal S2 Lungs: Other (decrease BS) Abdomen: Bowel sounds, Soft Extremities: no Edema Neurological: Sensation intact Skin: Rash Psych/Mental Status: Mood NL Nutritional Asmnt/Malnutr-PDOC - Dietary Evaluation Malnutrition Findings (Please click <Entered> for more info): Nutritional Asmnt/Malnutrition Start: 09/08/17 16: 43 Text: Status: Complete Freq: Document 09/08/17 16:44 LCHENG (Rec: 09/08/17 17:14 LCHEN [email or web address]) Nutritional Asmnt/Malnutrition Patient General Information Nutritional Screening High Risk Diagnosis UTI, dehydration Pertinent Medical Hx/Surgical Hx HTN, DM, CAD, PEG, BKA Subjective Information Pt seen sleeping in bed during the time of visit. Verified TF running at 50ml/hr at this time. Per notes, residual<10ml . Pt is AKA bilateral noted. Current Diet Order/ Nutrition Support Diabetisource AC [id number], providing 1200kcal, 60g protein Pertinent Medications Vitamin C, novolog, levemir, culturelle, levofloxacin, thereagran, nacl 0.45%, zinc Pertinent Labs 09/08 Na 135L, K 4.5, Cl 101, BUN 44, Cr 1.5, glucose 186, POC 178-212, phos 2.3 09/07 a1c 7.9 Nutritional Hx/Data Height 1.52 m Height (Calculated Centimeters) 152.4 Current Weight (lbs) 62.596 kg Weight (Calculated Kilograms) 62.6 Weight (Calculated Grams) 88784.7 Body Mass Index (BMI) 26.9 GI Symptoms GI Symptoms None Last BM 09/07 Usual diet at home Glucerna 1.5 50ml x 20hrs daily at [facility] Skin Integrity/Comment: intact Estimated Nutritional Goals BEE in Kcals: Using Current wt Calories/Kcals/Kg 25-30 Kcals Calculated 9296-9175 Protein: Using Current wt Protein g/k-1.2 Protein Calculated 62-75 monitor renal labs Fluid: ml 5426-1622 Nutritional Problem 1. Problem Problem inadequate intake from enteral nutrition Etiology current TF regimen not meeting 100% of nutritional needs Signs/Symptoms: TF meeting 77% of nutritional needs Malnutrition Alert Protein-Calorie Malnutrition N/A Is there a minimum of two criteria No selected? Query Text:Check all the applicable criteria. A minimum of two criteria are recommended for diagnosis of either severe or non-severe malnutrition. Intervention/Recommendation Comments 1. Recommend modifying TF to Diabetisource AC 50ml x 24 hr daily. This will provide 1440kcal, 72g protein and 982ml water, meeting 90% of calorie needs and 100% of protein needs. 2. Monitor TF rate, tolerance, labs, skin integrity 3. F/U as high risk in 2-3 days, 09/10-09/11 Expected Outcomes/Goals Expected Outcomes/Goals 1. Pt to meet at least 90% of nutritional needs via nutrition support with tolerance 2. wt stability, labs to improve, skin to remain intact
== END 2017-09-09 17:15 | disposition home or self-care (01) | DRG 463 ==
LOC: ER 20:59 → MSI 09-07 00:10
PROVIDERS: ADMIT Internal Medicine; ATTEND Internal Medicine
DX: N39.0 Urinary tract infection, site not specified (principal); N17.0 Acute kidney failure with tubular necrosis; E11.21 Type 2 diabetes mellitus with diabetic nephropathy; E11.51 Type 2 diabetes mellitus with diabetic peripheral angiopathy without gangrene; I50.9 Heart failure, unspecified; E11.22 Type 2 diabetes mellitus with diabetic chronic kidney disease; I13.0 Hypertensive heart and chronic kidney disease with heart failure and stage 1 through stage 4 chronic kidney disease, or unspecified chronic kidney disease; G30.9 Alzheimer's disease, unspecified; F02.80 Dementia in other diseases classified elsewhere, unspecified severity, without behavioral disturbance, psychotic disturbance, mood disturbance, and anxiety; I25.10 Atherosclerotic heart disease of native coronary artery without angina pectoris; N18.9 Chronic kidney disease, unspecified; E86.0 Dehydration; J44.9 Chronic obstructive pulmonary disease, unspecified; Z89.612 Acquired absence of left leg above knee; Z89.611 Acquired absence of right leg above knee; Z88.0 Allergy status to penicillin; Z83.3 Family history of diabetes mellitus; Z93.1 Gastrostomy status; Z79.4 Long term (current) use of insulin
CPT/HCPCS: 36415-UA; 71010-TC; 76770-TC; 80048-TC; 80053-TC; 81001-TC; 82948-90; 83036-90; 83735-TC; 84100-TC; 84550-TC; 85007-TC; 85025-TC; 85027-TC; 87086-90; 93005; J1644; J1815; J1956; J7030; Z7610

== ENCOUNTER 2017-09-13 13:46 | Inpatient (IN) | payer MEDICAID ==
[2017-09-13] MEDS ORDERED: INSULIN HUMAN REGULAR 100 UNITS/ML UNIT ONE ×2 (14:29→15:55)
[2017-09-13 14:33] LABS: BASOPHILE ABSOLUTE 0.6 Th/cumm (0-0.2); EOSINOPHILE ABSOLUTE 0.1 Th/cmm (0.1-0.4); HEMOGLOBIN 12.2 gm/dL (12-16); LYMPHOCYTE ABSOLUTE 1.4 Th/cmm (1.5-3.0); MANUAL DIFF REQUIRED? YES; MEAN CELL VOLUME 89.2 fl (81-100); MEAN CORPUSCULAR HEMOGLOBIN 29.2 pg (27.0-31.0); MEAN CORPUSCULAR HGB CONC 32.7 pg (28.0-36.0); MEAN PLATELET VOLUME 11.1 fl; MONOCYTE ABSOLUTE 1.2 Th/cmm (0.3-1.0); NEUTROPHILE ABSOLUTE 18.1 Th/cmm (1.8-8.0); RED BLOOD COUNT 4.19 Mil/cmm (3.80-5.20); RED CELL DISTRIBUTION WIDTH 14.9 % (11.5-20.0)
[2017-09-13] MEDS ORDERED: Sodium Chloride 0.9% 500 ML IV ONE (14:39)
[2017-09-13 14:40] LABS: HEMATOCRIT 37.3 % (41.0-60); PLATELET COUNT 271 Th/cmm (150-400); WHITE BLOOD COUNT 21.4 Th/cmm (4.8-10.8)
[2017-09-13 14:53] LABS: BUN - UREA NITROGEN 62 mg/dL (7-25); CALCIUM SERUM 11.1 mg/dL (8.6-10.3); CARBON DIOXIDE 21.9 mEq/L (21.0-31.0); CHLORIDE 96 mEq/L (98-107); CREATININE - SERUM 2.5 mg/dL (0.6-1.2); SODIUM SERUM 129 mEq/L (136-145)
[2017-09-13 15:00] LABS: GLUCOSE 541 mg/dL (70-105)
[2017-09-13] MEDS ORDERED: INSULIN HUMAN REGULAR 100 UNITS/ML UNIT IVP ONE ×3 (15:00→16:01)
[2017-09-13] MEDS ORDERED: Albuterol Nebulizer 2.5mg/3mL HHN ONE ×2 (15:35→16:19)
[2017-09-13 16:05] LABS: ANION GAP 17.2 (7.0-16.0); POTASSIUM SERUM 6.1 mEq/L (3.5-5.1)
--- NOTE | 2017-09-13 16:12 | ED Physician Chart ---
ED Chief Complaint/HPI - Patient Information Date Seen:: 09/13/17 Time Seen:: 14:00 Allergies:: Allergies Allergy/AdvReac Type Severity Reaction Status Date / Time Penicillins [PCN] Allergy Verified 09/06/17 21:11 Vitals:: Vital Signs - 8 hr 09/13/17 09/13/17 13:55 15:13 Temp 101.0 F 97.8 F HR 110 68 RR 23 18 BP 145/62 124/64 O2 Sat % 95 99 ED Review of Systems - Review of Systems General/Constitutional: No fever (unable to give hx or ros) ED Past Medical History - Past Medical History Past Medical History: HTN, DM, Asthma/COPD, Dementia Family Medical History - Family Member Mother History Unknown: Yes (NONCONTRIBUTORY) ED Physical Exam - Physical Examination Head: Atraumatic Eyes: Lids, conjuctiva normal ENMT: External ears, nose nl Neck: No stridor Respiratory: Nl effort/Exclusion Cardio Vascular: RRR Other GI comments:: distended abdomen vommitting blood coffee ground 500+sugar small ketone ED Labs/Radiology/EKG Results - Lab Results Results: Laboratory Tests 09/13/17 09/13/17 09/13/17 13:52 14:28 14:28 WBC 21.4 H* RBC 4.19 Hgb 12.2 Hct 37.3 L D MCV 89.2 MCH 29.2 MCHC Differential 32.7 RDW 14.9 Plt Count 271 D MPV 11.1 Sodium 129 L Chloride 96 L Carbon Dioxide 21.9 BUN 62 H Creatinine 2.5 H Est GFR ( Amer) TNP Est GFR (Non-Af Amer) TNP BUN/Creatinine Ratio 24.8 Glucose 541 H* POC Glucose 452 H* Whole Bld Lactic Acid Calcium 11.1 H 09/13/17 09/13/17 14:28 15:38 WBC RBC Hgb Hct MCV MCH MCHC Differential RDW Plt Count MPV Sodium Chloride Carbon Dioxide BUN Creatinine Est GFR ( Amer) Est GFR (Non-Af Amer) BUN/Creatinine Ratio Glucose POC Glucose 436 H Whole Bld Lactic Acid 4.44 H* Calcium ED Septic Shock - . Is Septic Shock (SBP<90, OR Lactate>4 mmol\L) present?: No - <6hrs of presentation: Vital Signs: Vital Signs - 8 hr 09/13/17 09/13/17 13:55 15:13 Temp 101.0 F 97.8 F HR 110 68 RR 23 18 BP 145/62 124/64 O2 Sat % 95 99 ED Discharge Plan - Patient Disposition Admit/Discharge/Transfer: Acute Care w/in this hosp
[2017-09-13] MEDS: Sodium Chloride 0.9% 1,000 ML IV ONE ×2 (16:13→19:24)
[2017-09-13 16:19] LABS: INR 0.9 (0.5-1.4); PROTHROMBIN TIME (TEST) 9.3 SECONDS (9.5-11.5)
[2017-09-13] MEDS ORDERED: Levofloxacin 500mg/100mL 500 MG/100 ML BAG IV ONE ×2 (16:26→17:19)
[2017-09-13 16:28] LABS: ALBUMIN 3.8 gm/dL (3.7-5.3); BILIRUBIN,TOTAL 0.3 mg/dL (0.3-1.0)
[2017-09-13 16:34] LABS: BILIRUBIN,DIRECT 0.08 mg/dL (0.0-0.2)
[2017-09-13] MEDS ORDERED: metroNIDAZOLE 500mg/NS 100mL 500 MG/100 ML BAG IV ONE (16:35)
[2017-09-13 17:06] LABS: ALB/GLOB RATIO 1.3 (1.0-1.8); TOTAL PROTEIN,SERUM 6.8 gm/dL (6.0-8.3)
[2017-09-13 17:57] LABS: BAND NEUTROPHILE 18 % (0-10); EOSINOPHIL 1 % (0-5); LYMPHOCYTE 8 % (20-50); METAMYELOCYTE 2 % (0-0); MONOCYTE 3 % (2-10); MYELOCYTE 1 %; NEUTROPHILS 67 % (40-80); TOTAL CELLS COUNTED 100
[2017-09-13 17:58] LABS: HYPOCHROMIA 1+; PLATELET ESTIMATE ADEQUATE (NORMAL)
[2017-09-13] MEDS: Sodium Chloride 0.9% 1,000 ML IV SCH (19:26)
[2017-09-13] MEDS ORDERED: Fleet Enema 135 mL RC PRN (21:56)
[2017-09-13] MEDS ORDERED: Magnesium Hydroxide (MOM) 30 mL UDC GT PRN (21:56)
[2017-09-13] MEDS ORDERED: Acetaminophen 500 MG TAB PO PRN (21:56)
[2017-09-14] MEDS: INSULIN ASPART SLIDING SCALE 100 UNITS/ML UNIT SUBQ SCH ×6 (00:22→21:54)
[2017-09-14 06:45] LABS: % BASOPHILS 0.3 % (0.0-2.0); % EOSINOPHILS 0.3 % (0.0-5.0); % NEUTROPHILS 79.4 % (40.0-80.0); HEMOGLOBIN 9.3 gm/dL (12-16); LYMPHOCYTE ABSOLUTE 1.9 Th/cmm (1.5-3.0); MEAN CELL VOLUME 88.4 fl (81-100); MEAN CORPUSCULAR HEMOGLOBIN 30.3 pg (27.0-31.0); MEAN CORPUSCULAR HGB CONC 34.3 pg (28.0-36.0); MEAN PLATELET VOLUME 8.7 fl; NEUTROPHILE ABSOLUTE 11.6 Th/cmm (1.8-8.0); RED BLOOD COUNT 3.08 Mil/cmm (3.80-5.20); RED CELL DISTRIBUTION WIDTH 14.6 % (11.5-20.0)
[2017-09-14 07:00] LABS: HEMATOCRIT 27.2 % (41.0-60); WHITE BLOOD COUNT 14.5 Th/cmm (4.8-10.8)
[2017-09-14 07:01] LABS: PLATELET COUNT 179 Th/cmm (150-400)
--- NOTE | 2017-09-14 08:33 | Diagnostic Imaging Report ---
Exam: Acute abdominal series HISTORY: Pneumonia Multiple views of the abdomen reviewed. The study demonstrates a large amount fecal content throughout the right colon. Bony structures are unremarkable for degenerative changes. The aorta is calcified. Multiple phleboliths are noted pelvic area. Mild distention small bowel loops left lower quadrant might assist with mild ileus. Atelectatic change in the right base appreciated. IMPRESSION: 1. Large amount of fecal content in the right colon 2. Question of mild ileus 3. No free air appreciated. The study somewhat limited due to size of the patient
[2017-09-14] MEDS ORDERED: Multivitamin w/ Minerals 15 mL UDC GT SCH (09:00)
[2017-09-14] MEDS ORDERED: [UNRECOGNIZED DRUG - OTHER] TP SCH (09:00)
[2017-09-14] MEDS ORDERED: Non-Formulary Item 1 EA (Cran/Vitc/Mannose/Fos/Bromeln [Uti-Stat Liquid] 30 ML) GT SCH (09:00)
[2017-09-14] MEDS: Vitamin A/Vitamin D 5 gm Packet TP SCH (09:35)
[2017-09-14] MEDS: Ascorbic Acid 500 mg/5 mL UDC GT SCH (09:49)
[2017-09-14] MEDS: Insulin Detemir 100 units/mL 10mL Vial SUBQ SCH ×2 (09:51→21:56)
[2017-09-14] MEDS ORDERED: Pneumococcal Vaccine 0.5 mL Vial IM ONE (11:00)
[2017-09-14 11:08] LABS: ALB/GLOB RATIO 1.2 (1.0-1.8); ALBUMIN 3.2 gm/dL (3.7-5.3); ALKALINE PHOSPHATASE 83 U/L (34-104); ANION GAP 11.8 (7.0-16.0); BILIRUBIN,TOTAL 0.4 mg/dL (0.3-1.0); BUN - UREA NITROGEN 44 mg/dL (7-25); CALCIUM SERUM 9.2 mg/dL (8.6-10.3); CARBON DIOXIDE 24.3 mEq/L (21.0-31.0); CHLORIDE 110 mEq/L (98-107); CREATININE - SERUM 1.7 mg/dL (0.6-1.2); POTASSIUM SERUM 4.1 mEq/L (3.5-5.1); SGOT 12 U/L (13-39); SGPT/ALT 12 U/L (7-52); TOTAL PROTEIN,SERUM 5.9 gm/dL (6.0-8.3)
[2017-09-14 11:16] LABS: GLUCOSE 207 mg/dL (70-105); SODIUM SERUM 142 mEq/L (136-145)
[2017-09-14] MEDS ORDERED: Influenza Vaccine 0.5 mL Syr IM ONE (11:30)
--- NOTE | 2017-09-14 12:47 | History and Physical ---
History of Present Illness - HPI Chief Complaint: weakness, uncontrolled bs of 578 HPI: 71 year old female resident of [facility] due to generalized weakness and uncontrolled blood sugar in the 500's. Vital Signs: Last Vital Signs Temp 98.8 F 09/14/17 11:00 Pulse 92 09/14/17 11:00 Resp 16 09/14/17 11:00 BP 128/58 09/14/17 11:00 Pulse Ox 97 09/14/17 11:00 Past Medical History Other History: htn, dementia, dm , cad, copd, chf - Past Surgical History Past Surgical History: Other (peg/ bilateral aka) Family Medical History - Family Member Mother History Unknown: Yes Social History Smoke: No Alcohol: None Drugs: None Lives: Group Home Domestic Violence: Negative - Medications Home Medications: Home Medication Medication Instructions Recorded Type Hydralazine HCl 50 mg GT TID 09/06/17 History Insulin Aspart Sliding Scale See Protocol SUBQ ACHS 09/06/17 History [NovoLOG INSULIN SLIDING SCALE] Insulin Detemir [Levemir Insulin] 30 units SUBQ BIDAC 09/06/17 History Memantine HCl [Namenda] 10 mg GT BID 09/06/17 History Sulfamethoxazole/TMP [Bactrim Ds] 1 tab GT BID 09/06/17 History Vit C/Ascorbate Ca/Ascorb Sod 500 mg GT DAILY 09/06/17 History [Vitamin C 500 mg/15 ml Liquid] Zinc Sulfate 220 mg GT DAILY 09/06/17 History amLODIPine Besylate [Norvasc] 5 mg GT DAILY 09/06/17 History Acetaminophen [Tylenol Extra 1,000 mg PO Q4HR PRN 09/13/17 History Strength] Acetaminophen [Tylenol] 650 mg PO Q4HR PRN 09/13/17 History Bisacodyl [Dulcolax 10 Mg Supp] 10 mg RC DAILY PRN 09/13/17 History Calfzime Skin Protectant 1 unit TP DAILY 09/13/17 History Cran/Vitc/Mannose/Fos/Bromeln 30 ml GT DAILY 09/13/17 History [Uti-Stat 887 ml] Fleet Enema [Fleet Enema] 135 ml RC Q48H PRN 09/13/17 History Magnesium Hydroxide [Milk of 30 ml GT HS PRN 09/13/17 History Magnesia] Multivitamin w/ Minerals 5 ml GT DAILY 09/13/17 History [Theragran M] Sennosides A and B [Senna] 2 tab GT HS 09/13/17 History Vits A & D/White Pet/Lanolin [A + 42.5 gm TP DAILY 09/13/17 History D Ointment] - Allergies Allergies/Adverse Reactions: Allergies Allergy/AdvReac Type Severity Reaction Status Date / Time Penicillins [PCN] Allergy Verified 09/06/17 21:11 Review of Systems - Review of Systems Constitutional: Report: No Significant Eyes: Report: No Significant ENT: Report: No Significant Respiratory: Report: No Significant Cardiovascular: Report: No Significant Gastrointestinal: Report: No Significant Genitourinary: Report: No Significant Musculoskeletal: Report: No Significant Skin: Report: No Significant Neurological: Report: Weakness Physical Exam - Physical Exam HEENT: Report: Ears Nose Throat within normal limits Neck: Report: Within normal limits Cardiovascular Systems: Report: +s1/s2 noted Respiratory: Report: Breath Sounds are within normal limits Back: Report: Inspection of back is within normal limits. Extremities: Report: Non-tender to palpation. Skin: Report: Warm, No Rashes noted of the skin Neuro/Psych: Report: Weakness or sensory loss noted. - Lab Results All Lab Results last 24 hours: Laboratory Results - last 24 hr 09/13/17 09/13/17 09/13/17 20:46 21:18 21:18 WBC RBC Hgb Hct MCV MCH MCHC Differential RDW Plt Count MPV Neutrophils % Lymphocytes % Monocytes % Eosinophils % Basophils % Sodium Potassium 5.6 H Chloride Carbon Dioxide Anion Gap BUN Creatinine Est GFR ( Amer) Est GFR (Non-Af Amer) BUN/Creatinine Ratio Glucose POC Glucose 424 H Whole Bld Lactic Acid 2.95 H* Calcium Phosphorus Magnesium Total Bilirubin AST ALT Alkaline Phosphatase Ammonia Total Protein Albumin Globulin Albumin/Globulin Ratio 09/14/17 09/14/17 09/14/17 00:07 06:15 06:35 WBC 14.5 H D RBC 3.08 L Hgb 9.3 L Hct 27.2 L D MCV 88.4 MCH 30.3 MCHC Differential 34.3 RDW 14.6 Plt Count 179 D MPV 8.7 Neutrophils % 79.4 Lymphocytes % 13.0 L Monocytes % 7.0 Eosinophils % 0.3 Basophils % 0.3 Sodium Potassium Chloride Carbon Dioxide Anion Gap BUN Creatinine Est GFR ( Amer) Est GFR (Non-Af Amer) BUN/Creatinine Ratio Glucose POC Glucose 330 H 254 H Whole Bld Lactic Acid Calcium Phosphorus Magnesium Total Bilirubin AST ALT Alkaline Phosphatase Ammonia Total Protein Albumin Globulin Albumin/Globulin Ratio 09/14/17 09/14/17 09/14/17 09:39 10:30 10:30 WBC RBC Hgb Hct MCV MCH MCHC Differential RDW Plt Count MPV Neutrophils % Lymphocytes % Monocytes % Eosinophils % Basophils % Sodium 142 D Potassium 4.1 Chloride 110 H Carbon Dioxide 24.3 Anion Gap 11.8 BUN 44 H Creatinine 1.7 H Est GFR ( Amer) TNP Est GFR (Non-Af Amer) TNP BUN/Creatinine Ratio 25.9 Glucose 207 H D POC Glucose 203 H Whole Bld Lactic Acid Calcium 9.2 Phosphorus Magnesium Total Bilirubin 0.4 AST 12 L ALT 12 Alkaline Phosphatase 83 Ammonia 45 Total Protein 5.9 L Albumin 3.2 L Globulin 2.7 Albumin/Globulin Ratio 1.2 09/14/17 09/14/17 09/14/17 10:30 10:30 10:30 WBC RBC Hgb Hct MCV MCH MCHC Differential RDW Plt Count MPV Neutrophils % Lymphocytes % Monocytes % Eosinophils % Basophils % Sodium Potassium Chloride Carbon Dioxide Anion Gap BUN Creatinine Est GFR ( Amer) Est GFR (Non-Af Amer) BUN/Creatinine Ratio Glucose POC Glucose Whole Bld Lactic Acid 1.04 Calcium Phosphorus 2.9 Magnesium 2.3 Total Bilirubin AST ALT Alkaline Phosphatase Ammonia Total Protein Albumin Globulin Albumin/Globulin Ratio 09/14/17 12:19 WBC RBC Hgb Hct MCV MCH MCHC Differential RDW Plt Count MPV Neutrophils % Lymphocytes % Monocytes % Eosinophils % Basophils % Sodium Potassium Chloride Carbon Dioxide Anion Gap BUN Creatinine Est GFR ( Amer) Est GFR (Non-Af Amer) BUN/Creatinine Ratio Glucose POC Glucose 212 H Whole Bld Lactic Acid Calcium Phosphorus Magnesium Total Bilirubin AST ALT Alkaline Phosphatase Ammonia Total Protein Albumin Globulin Albumin/Globulin Ratio - Assessment Assessment: Current Active Problems Problem Status Onset ELEVATED BLOOD GLUCOSE Acute DKA urosepsis hyperemesis htn dementia dm cad copd chf - Plan Plan: renal ultrasound and renal consult monitor glucose accucheck with sliding scale follow up labs in am ivf for hydration continue current orders
[2017-09-14] MEDS ORDERED: VTE Chemical Prophylaxis Screen/Admission MC PRN (14:59)
--- NOTE | 2017-09-14 20:21 | Consultation ---
DATE OF CONSULTATION: 09/14/[address] Castaneda. HISTORY AND PHYSICAL: This is a 71-year-old female patient brought to the Emergency Room due to diabetic ketoacidosis. During the hospital stay, the patient had tachycardia and hence cardiac consult was requested. PAST MEDICAL HISTORY: Diabetes mellitus type 2, hypertension, dementia, COPD, asthma, congestive heart failure, iron deficiency anemia, history of osteomyelitis of the right ankle. FAMILY HISTORY: Unremarkable. SOCIAL HISTORY: No history of smoking or alcohol abuse. ALLERGIES: No known allergies. PHYSICAL EXAMINATION: VITAL SIGNS: Blood pressure 100/70, pulse 70, respirations 28. HEAD: Normocephalic. No lumps or bumps. EYES: Pupils equal, reactive to light. Fundi show AV nicking, sclerae white, conjunctivae pink. NECK: Carotid 2+. Normal upstroke. JVD 10 cm above sternal angle. Thyroid not palpable. Lymph nodes not palpable. CHEST: Shows increased AP diameter. No kyphosis, scoliosis. LUNGS: Bilateral bronchovesicular breath sounds. Occasional wheeze. No rales. HEART: PMI fifth intercostal space with lateral to midclavicular line. S1, S2. No S3, S4, soft systolic murmur. ABDOMEN: Soft. Liver, spleen not palpable. No organomegaly. Bowel sounds active. NEUROLOGIC: Unremarkable. EXTREMITIES: Peripheral pulses 2+. No pedal edema. LABORATORY DATA: On admission patient's white count was 14.5, hemoglobin 9.3. Lactic acid positive and 2.95. Blood sugar 424. Creatinine 1.7, BUN 44. Hyperkalemia with potassium of 5.6. CLINICAL IMPRESSION: 1. Diabetic ketoacidosis. 2. Diabetes mellitus type 2, insulin-dependent. 3. Hypertension. 4. Dementia. 5. Chronic obstructive pulmonary disease. 6. Asthma. 7. Congestive heart failure. 8. Diastolic dysfunction. 9. Chronic diabetic CKD stage 2. 10. Iron deficiency anemia. 11. Previous history of osteomyelitis. PLAN: Admit the patient. We will continue present care, IV antibiotic, and monitor the patient. JOB# [id number]
--- NOTE | 2017-09-14 21:04 | Consultation ---
DATE OF CONSULTATION: 09/14/2017 REASON FOR CONSULT: GI bleed. HISTORY OF PRESENT ILLNESS: This consult was obtained through the courtesy of Dr. Castaneda for this 71-year-old with multiple medical problems including diabetes, hypertension, dementia, coronary artery disease, congestive heart failure, peripheral vascular disease, status post bilateral above-knee amputation, who was admitted to the hospital because of weakness, uncontrolled blood sugar and was found to have some coffee-ground emesis, so GI consult was called in for further evaluation, even though patient has her eyes open, but she is not providing any information or responding to questions. PAST MEDICAL HISTORY: Hypertension, diabetes, dementia, coronary artery disease, COPD, congestive heart failure, peripheral vascular disease and dysphagia. PAST SURGICAL HISTORY: She had bilateral above-knee amputations. She has a G-tube. SOCIAL HISTORY: Nonsmoker, nonalcoholic and IV drug abuser. FAMILY HISTORY: Noncontributory. REVIEW OF SYSTEMS: Unobtainable. MEDICATIONS: The patient was on hydralazine, insulin, Namenda, Bactrim, vitamin C, zinc, amlodipine, Tylenol, bisacodyl, ceftazidime, Fleets enema p.r.n., , multivitamin, senna, and vitamins. ALLERGIES: PENICILLIN. PHYSICAL EXAMINATION: GENERAL: The patient is awake, nonverbal. VITAL SIGNS: Blood pressure is 125/46, heart rate 86, respiratory rate 19, temperature 96.6. HEAD AND NECK: Pupils reactive to light. Extraocular muscles could not be tested. Oral cavity, no lesion. NECK: Supple, no jugular venous distention, no carotid lymph node. CHEST: Good respiratory movements. LUNGS: Showed bilateral rhonchi. CARDIOVASCULAR: Regular rate and rhythm. No murmur or gallop. ABDOMEN: Obese, soft, positive bowel sound. There is a G-tube in place which is old. EXTREMITIES: Lower extremities showed bilateral above-knee amputation. CENTRAL NERVOUS SYSTEM: Unable to evaluate. LABORATORY DATA: Hemoglobin was 12.2, now is 9.3 after rehydration and improvement of the blood sugars. White count was 21.4, now 14.5. Liver enzymes are normal. The patient had an abdominal x-ray, which showed large amount of fecal material in the right colon, possible ileus. IMPRESSION: A 71-year-old with diabetic ketoacidosis and also abdominal distention, some coffee-ground emesis. 1. Coffee-ground emesis. At this time, it has resolved. The drop in hemoglobin and hematocrit, could be explained by rehydration, but still a possibility of gastrointestinal bleed is there, differential would include gastritis, small Oralia-Pimentel tear, small ulcer, so we would continue to monitor hemoglobin and hematocrit. We will continue with proton pump inhibitor. We will resume feeding. If no more bleeding and hemoglobin and hematocrit remained the same, then no need for workup, but on the other hand, if there is further drop of hemoglobin and hematocrit, then we will do an upper endoscopy. 2. Dysphagia. We will resume tube feeding. 3. Old gastric tube most likely need to be changed in a day or two depending on the availability of size 24. Other medical problems such as diabetes, hypertension, coronary artery disease, chronic obstructive pulmonary disease, dementia as per Dr. Castaneda. Thank you, Dr. Castaneda for allowing me to participate in the care of the patient. If you have any further questions, please let me know. JOB# [id number]
--- NOTE | 2017-09-14 21:22 | Consultation ---
DATE OF CONSULTATION: AGE OF THE PATIENT: 71 years. SEX: Female. RACE: . PLACE: Intensive Care Unit, room #7. ATTENDING PHYSICIAN: Dr. Castaneda. REASON FOR CONSULTATION: Evaluation of elevated BUN and creatinine and electrolyte problems. HISTORY OF PRESENT ILLNESS: This is a 71-year-old lady who was not communicating at the present time. The patient was brought in because she was vomiting and she vomited some coffee-ground material. The patient does have a G tube for feeding purposes. The patient also has problems with diabetes mellitus, obesity. The patient also has renal insufficiency and anemia. On evaluation, skin turgor seems to be good. Jugular venous pressure clinically is not raised. Blood pressures are reasonable at present time. Hydration seems to be adequate. Abdomen is rather large and soft. There could be free fluid in the abdomen, cannot be ruled out. The patient has bilateral above-knee amputation secondary to vascular disease. In addition to that, the patient does have problems with feeding. Obviously, they have further put an NG tube. The patient's biochemical data available had been as follows: WBC count today 14.5, yesterday was 21,000, hemoglobin 9.3 grams percent, yesterday was 12.2, band neutrophils yesterday 18, none today. Platelet count adequate. Sodium 132, potassium 4.2, chloride 103, CO2 content 21, BUN 35, creatinine 1.0. There was an ultrasound being done. The patient does not have any retention in the bladder, does actually have a Rai catheter. Calcium is 8.2. Neurologically, difficult to evaluate because the communication is poor at present time. Considering the above, the impression remains; 1. Vomiting with blood with some drop in hemoglobin, etiology not known. 2. History of diabetes mellitus. 3. Lot of gas noticed on the ultrasound suggesting maybe patient may have intermittent bilious for gastrostomy tube, reason not known. History of peripheral vascular disease with bilateral above-knee amputation. Again, other etiologies not known. PLAN: At present to continue with hydration and managing the diabetes at present time. Would repeat the chemistries again and review. I expect that whatever changes in the BUN and creatinine may be temporary and may be secondary to intravascular volume contraction or dehydration, which I do not think is a problem. The patient also has moderate obesity. Would repeat the chemistries again tomorrow. [facility]# [id number]
[2017-09-14] MEDS: Sodium Chloride 0.9% 1,000 ML IV SCH (22:16)
[2017-09-15] MEDS ORDERED: Levofloxacin 250mg/50mL 250 MG/50 ML BAG IV ONE (00:52)
[2017-09-15 05:59] LABS: HEMATOCRIT 28.3 % (41.0-60); HEMOGLOBIN 9.6 gm/dL (12-16); MEAN CORPUSCULAR HEMOGLOBIN 30.4 pg (27.0-31.0); MEAN CORPUSCULAR HGB CONC 33.8 pg (28.0-36.0); MEAN PLATELET VOLUME 9.5 fl; PLATELET COUNT 183 Th/cmm (150-400); RED BLOOD COUNT 3.15 Mil/cmm (3.80-5.20)
[2017-09-15 06:08] LABS: MANUAL DIFF REQUIRED? YES
[2017-09-15 06:14] LABS: ANION GAP 9.9 (7.0-16.0); BUN - UREA NITROGEN 31 mg/dL (7-25); CALCIUM SERUM 8.6 mg/dL (8.6-10.3); CARBON DIOXIDE 24.5 mEq/L (21.0-31.0); CHLORIDE 110 mEq/L (98-107); CREATININE - SERUM 1.3 mg/dL (0.6-1.2); GLUCOSE 212 mg/dL (70-105); POTASSIUM SERUM 3.4 mEq/L (3.5-5.1); SODIUM SERUM 141 mEq/L (136-145)
[2017-09-15 06:53] LABS: BAND NEUTROPHILE 3 % (0-10); EOSINOPHIL 3 % (0-5); LYMPHOCYTE 19 % (20-50); MONOCYTE 8 % (2-10); NEUTROPHILS 67 % (40-80); TOTAL CELLS COUNTED 100
[2017-09-15] MEDS: Sodium Chloride 0.9% 1,000 ML IV SCH ×2 (07:03→17:00)
[2017-09-15] MEDS: INSULIN ASPART SLIDING SCALE 100 UNITS/ML UNIT SUBQ SCH ×4 (07:05→21:00)
--- NOTE | 2017-09-15 08:45 | Diagnostic Imaging Report ---
Exam: Ultrasound summation kidneys. HISTORY: Renal failure. Findings: Real-time ultrasound examination of kidneys performed multiple planes study correlated with the previous exam of 09/07/2017. The study demonstrates no evidence of obstructive uropathy or nephrolithiasis. Right kidney measures 9.6 x 4.7 x 4.7 cm diameter. Left kidney measures 9.6 x 4.6 x 5.5. Diameter. Rai catheter catheter is noted in the urinary bladder. IMPRESSION: Unchanged compared to prior examination of , no evidence of obstructive uropathy or nephrolithiasis.
[2017-09-15] MEDS ORDERED: Potassium Chloride 20 mEq ER Tab PO ONE (09:17)
[2017-09-15] MEDS: Multivitamin w/ Minerals Tab PO SCH (09:19)
[2017-09-15] MEDS: Vitamin A/Vitamin D 5 gm Packet TP SCH (09:31)
[2017-09-15] MEDS: Ascorbic Acid 500 mg/5 mL UDC GT SCH (09:54)
[2017-09-15] MEDS: Insulin Detemir 100 units/mL 10mL Vial SUBQ SCH ×2 (09:57→21:00)
--- NOTE | 2017-09-15 12:20 | Diagnostic Imaging Report ---
Exam: Portable chest x-ray HISTORY: Pneumonia. Findings: Portable examination of chest upright at 1207 hours reviewed, compared to prior study 09/06/2017 demonstrates mild congestion. Atelectatic changes in the bases appreciated no acute pulmonic infiltrates or effusions are noted. The aortic arch calcified. Bony thorax remarkable for degenerative osteopenia. IMPRESSION: mild congestion, mild basilar atelectasis
[2017-09-15] MEDS ORDERED: Levofloxacin 250mg/50mL 250 MG/50 ML BAG IV SCH (14:00)
--- NOTE | 2017-09-15 15:12 | General Progress Note ---
Subjective - Review of Systems Events since last encounter: patient with g-tube in no acute distress Objective - Results Result Diagrams: 09/15/17 05:50 09/15/17 05:50 Recent Labs: Laboratory Last Values WBC 13.0 Th/cmm (4.8-10.8) H 09/15/17 05:50 RBC 3.15 Mil/cmm (3.80-5.20) L 09/15/17 05:50 Hgb 9.6 gm/dL (12-16) L 09/15/17 05:50 Hct 28.3 % (41.0-60) L 09/15/17 05:50 MCV 90.0 fl (81-100) 09/15/17 05:50 MCH 30.4 pg (27.0-31.0) 09/15/17 05:50 MCHC Differential 33.8 pg (28.0-36.0) 09/15/17 05:50 RDW 15.0 % (11.5-20.0) 09/15/17 05:50 Plt Count 183 Th/cmm (150-400) 09/15/17 05:50 MPV 9.5 fl 09/15/17 05:50 Neutrophils % 79.4 % (40.0-80.0) 09/14/17 06:35 Band Neutrophils % 3 % (0-10) 09/15/17 05:50 Lymphocytes % 13.0 % (20.0-50.0) L 09/14/17 06:35 Monocytes % 7.0 % (2.0-10.0) 09/14/17 06:35 Eosinophils % 0.3 % (0.0-5.0) 09/14/17 06:35 Basophils % 0.3 % (0.0-2.0) 09/14/17 06:35 Neutrophils (Manual) 67 % (40-80) 09/15/17 05:50 Lymphocytes 19 % (20-50) L 09/15/17 05:50 Monocytes 8 % (2-10) 09/15/17 05:50 Eosinophils 3 % (0-5) 09/15/17 05:50 Metamyelocytes 2 % (0-0) H 09/13/17 14:28 Myelocytes 1 % 09/13/17 14:28 Hypochromia 1+ 09/13/17 14:28 Platelet Estimate ADEQUATE (NORMAL) 09/13/17 14:28 PT 9.3 SECONDS (9.5-11.5) L 09/13/17 14:28 INR 0.90 (0.5-1.4) 09/13/17 14:28 PTT (Actin FS) SECONDS (26.0-38.0) 09/13/17 14:28 Sodium 141 mEq/L (136-145) 09/15/17 05:50 Potassium 3.4 mEq/L (3.5-5.1) L 09/15/17 05:50 Chloride 110 mEq/L (98-107) H 09/15/17 05:50 Carbon Dioxide 24.5 mEq/L (21.0-31.0) 09/15/17 05:50 Anion Gap 9.9 (7.0-16.0) 09/15/17 05:50 BUN 31 mg/dL (7-25) H 09/15/17 05:50 Creatinine 1.3 mg/dL (0.6-1.2) H 09/15/17 05:50 Est GFR ( Amer) TNP 09/15/17 05:50 Est GFR (Non-Af Amer) TNP 09/15/17 05:50 BUN/Creatinine Ratio 23.8 09/15/17 05:50 Glucose 212 mg/dL (70-105) H 09/15/17 05:50 POC Glucose 260 MG/DL (70 - 105) H 09/15/17 11:31 Whole Bld Lactic Acid 1.04 mmol/L (0.60-1.99) 09/14/17 10:30 Calcium 8.6 mg/dL (8.6-10.3) 09/15/17 05:50 Phosphorus 2.9 mg/dL (2.5-5.0) 09/14/17 10:30 Magnesium 2.3 mg/dL (1.9-2.7) 09/14/17 10:30 Total Bilirubin 0.4 mg/dL (0.3-1.0) 09/14/17 10:30 Direct Bilirubin 0.08 mg/dL (0.0-0.2) 09/13/17 15:30 AST 12 U/L (13-39) L 09/14/17 10:30 ALT 12 U/L (7-52) 09/14/17 10:30 Alkaline Phosphatase 83 U/L (34-104) 09/14/17 10:30 Ammonia 45 umol/L (16-53) 09/14/17 10:30 Total Protein 5.9 gm/dL (6.0-8.3) L 09/14/17 10:30 Albumin 3.2 gm/dL (3.7-5.3) L 09/14/17 10:30 Globulin 2.7 gm/dL 09/14/17 10:30 Albumin/Globulin Ratio 1.2 (1.0-1.8) 09/14/17 10:30 Lipase 18 U/L (11-82) 09/13/17 15:30 Serum Ketones SMALL (NEGATIVE) H 09/13/17 15:30 - Physical Exam Vitals and I&O: Vital Signs Temp 97.2 F 09/15/17 11:00 Pulse 79 09/15/17 14:32 Resp 20 09/15/17 13:21 BP 140/53 09/15/17 14:32 Pulse Ox 99 09/15/17 13:21 Intake & Output 09/14/17 09/15/17 09/15/17 18:59 06:59 18:59 Intake Total 480 1000 600 Output Total 750 1550 Balance -270 1000 -950 Weight (lbs) 62.652 kg 62.188 kg Intake: Intake, IV Amount 250 1000 Sodium Chloride 0.9% 1, 1000 000 ml @ 125 mls/hr IV . Q8H [facility] Rx#:[id number] Vancomycin HCl 1.25 gm In 250 Dextrose 5% 250 ml @ 165 mls/hr IV ONCE ONE Rx#: [id number] Oral 0 Tube Feeding 100 600 Other 130 Output: Urine 750 1550 Other: # Bowel Movements 1 1 Stool Characteristics Soft Soft Soft Formed Formed Formed Active Medications: Current Medications Acetaminophen (Tylenol) 650 mg PO Q4HR PRN PRN Reason: MILD PAIN OR TEMP >101F Stop: 11/12/17 21:55 Acetaminophen (Tylenol Extra Strength) 1,000 mg PO Q4HR PRN PRN Reason: MOD PAIN Stop: 11/12/17 21:55 Amlodipine Besylate (Norvasc) 5 mg GT DAILY [facility] Stop: 11/13/17 08:59 Last Admin: 09/15/17 09:20 Dose: 5 mg Ascorbic Acid (Vitamin C) 500 mg GT DAILY [facility] Stop: 11/13/17 08:59 Last Admin: 09/15/17 09:54 Dose: Not Given Bisacodyl (Dulcolax 10 Mg Supp) 10 mg RC DAILY PRN PRN Reason: Constipation Stop: 11/12/17 21:55 Hydralazine HCl (Apresoline) 50 mg GT TID NEENA Stop: 11/13/17 08:59 Last Admin: 09/15/17 14:32 Dose: 50 mg Sodium Chloride (Nacl 0.9%) 1,000 mls @ 125 mls/hr IV .Q8H [facility] Stop: 11/12/17 19:21 Last Admin: 09/15/17 07:03 Dose: 125 mls/hr Levofloxacin (Levaquin Pb) 250 mg in 50 mls @ 50 mls/hr IV Q48HR [facility] Stop: 11/14/17 13:59 Last Admin: 09/15/17 14:32 Dose: 50 mls/hr Vancomycin HCl 1.25 gm/ (Dextrose) 250 mls @ 165 mls/hr IV Q24H [facility]EENA Stop: 11/14/17 08:59 Last Admin: 09/15/17 09:53 Dose: 165 mls/hr Insulin Aspart (Novolog Insulin Sliding Scale) 0 units SUBQ ACHS NENEA PRN Reason: Protocol Stop: 11/13/17 07:29 Last Admin: 09/15/17 12:16 Dose: 4 units Insulin Detemir (Levemir Insulin) 30 units SUBQ Q12HR NEENA PRN Reason: Protocol Stop: 11/13/17 08:59 Last Admin: 09/15/17 09:57 Dose: 30 units Magnesium Hydroxide (Milk Of Magnesia) 30 ml GT HS PRN PRN Reason: Constipation Stop: 11/12/17 21:55 Memantine (Namenda) 10 mg GT BID [facility] Stop: 11/13/17 08:59 Last Admin: 09/15/17 09:20 Dose: 10 mg Miscellaneous (Calfzime Skin Protectant) 1 unit TP DAILY [facility] Stop: 11/13/17 08:59 Miscellaneous (Vte Chemical Prophylaxis Screen/ Admission) 1 ea MC PRN PRN PRN Reason: PROTOCOL Stop: 02/24/18 14:58 Miscellaneous (Vancomycin Iv Per Pharmacy) 1 ea MC PRN NEENA Stop: 11/13/17 15:59 Pantoprazole Sodium (Protonix) 40 mg IVP DAILY [facility]EENA Stop: 11/13/17 08:59 Last Admin: 09/15/17 09:19 Dose: 40 mg Senna (Senna) 17.2 mg GT HS NEENA Stop: 11/13/17 20:59 Last Admin: 09/14/17 21:45 Dose: 17.2 mg Sodium Phosphate (Fleet Enema) 135 ml RC Q48H PRN PRN Reason: Constipation Stop: 11/12/17 21:55 Vitamin A (Vitamin A & D) 5 gm TP DAILY NEENA Stop: 11/13/17 08:59 Last Admin: 09/15/17 09:31 Dose: 5 gm Zinc Sulfate (Zinc Sulfate) 220 mg GT DAILY [facility] Stop: 11/13/17 08:59 Last Admin: 09/15/17 09:19 Dose: 220 mg General: No acute distress HEENT: Atraumatic Cardiovascular: Regular rate, Normal S1, Normal S2 Lungs: Clear to auscultation Assessment/Plan - Problem List Patient Problems: All Active Problems ELEVATED BLOOD GLUCOSE (Acute) - Plan Plan: as per order sheet Nutritional Asmnt/Malnutr-PDOC - Dietary Evaluation Malnutrition Findings (Please click <Entered> for more info): Nutritional Asmnt/Malnutrition Start: 09/14/17 15: 27 Text: Status: Complete Freq: Document 09/14/17 15:27 LCHENG (Rec: 09/14/17 16:06 [email or web address]) Nutritional Asmnt/Malnutrition Patient General Information Nutritional Screening High Risk Consult Diagnosis DKA, Urosepsis Pertinent Medical Hx/Surgical Hx HTN, dementia, DM, CAD, COPD, CHF, PEG, bilateral AKA Subjective Information Consult received for DKA and ibrahima 12. pt seen sleeping in bed during the time of visit. Considering bilateral AKA, adjusted BMI = 25.3. Per notes , pt had coffee ground emeis today. Noted pt has chewing difficulty and swallowing impaired per notes. Current Diet Order/ Nutrition Support no diet order Pertinent Medications Vitamin C, novolog, levemir, levaquin, protonix, senna, nacl 0.9%, vitamin A&D, Zinc Pertinent Labs 09/14 Na 142, K 4.1, Cl 110, BUN 44, Cr 1.7, Glucose 207, POC 203-436, AST 12, ALT 12, Alb 3.2 09/13 Glucose 541, POC 436-452 Nutritional Hx/Data Height 1.73 m Height (Calculated Centimeters) 172.7 Current Weight (lbs) 60.781 kg Weight (Calculated Kilograms) 60.8 Weight (Calculated Grams) 52701.4 [place] Body Weight 112 % [place] Body Weight 120 Body Mass Index (BMI) 20.3 GI Symptoms GI Symptoms Vomitting Last BM 09/14 Skin Integrity/Comment: intact Estimated Nutritional Goals BEE in Kcals: Using Current wt Calories/Kcals/Kg 23-27 (bedbound) Kcals Calculated 0910-1757 Protein: Using Current wt Protein g/k-1.2 monitor renal labs Protein Calculated 61-73 Fluid: ml 9404-7830 Nutritional Problem 1. Problem Problem altered nutrition related lab values Etiology hx of DM Signs/Symptoms: Glucose 207, POC 203-436 Malnutrition Alert Protein-Calorie Malnutrition N/A Is there a minimum of two criteria No selected? Query Text:Check all the applicable criteria. A minimum of two criteria are recommended for diagnosis of either severe or non-severe malnutrition. Intervention/Recommendation Comments 1. Monitor NPO status. 2. if enteral nutrition needed , recommend start Diabetisource AC at 20ml/hr, increased 10ml/hr q6hr to goal rate of 50ml/hr continuous. This will provide 1440kcal, 72g protein and 982ml water, meeting 100% of nutritional needs. 3. F/U as high risk in 2-3 days. Expected Outcomes/Goals Expected Outcomes/Goals 1. Pt to meet at least 75% of nutritional needs via nutrition support with tolerance 2. 2. Wt stability, skin to remain intact, labs to improve .
--- NOTE | 2017-09-16 00:12 | Consultation ---
DATE OF CONSULTATION: 09/14/2017 PRIMARY CARE PHYSICIAN: Dr. Castaneda. REASON FOR CONSULTATION: Sepsis. HISTORY OF PRESENT ILLNESS: This is a 71-year-old female, who was brought to the Emergency Room with complaint of vomiting of blood and high blood sugar of about 500. The patient's serum ketone positive is suggestive of diabetic ketoacidosis. The patient was admitted to ICU. Infectious consultation was called for further treatment. The patient's workup shows UTI and pneumonia. The patient was started on antibiotics and examined as soon as possible. Old chart reviewed as the patient is unable to provide meaningful history. Old chart reviewed, pertinent information obtained. PAST MEDICAL HISTORY: Asthma, coronary artery disease, hypertension, type 2 diabetes, Alzheimer disease, bilateral leg amputation, EGD, PEG placement. FAMILY HISTORY: Negative. ALLERGIES: Allergic to penicillin. SOCIAL HISTORY: Nonsmoker. REVIEW OF SYSTEMS: A 14-point review of system negative except above. No HIV, hepatitis, fall, trauma, seizures. The patient did have bleeding from the stomach. PHYSICAL EXAMINATION: GENERAL: The patient is lethargic. VITAL SIGNS: Temperature is 97.2, pulse 85, respirations 20, blood pressure 144/56. HEENT: Mild pallor, no icterus or plaque. NECK: Supple. LUNGS: Breath sounds bilateral vesicular. CARDIOVASCULAR: S1, S2. ABDOMEN: Soft, bowel sounds present. Leg amputation present. LYMPHATICS: No thyroid, no cervical lymph nodes. LABORATORY DATA: White count is 21,000, hemoglobin 12 grams, platelets 271, creatinine 2.5, lactic acid 4.4. Chest x-ray was ordered. UA shows UTI. DIAGNOSES: 1. Diabetic ketoacidosis, endocrine consult. Accu-Chek coverage, may need IV insulin. 2. Renal failure. Dr. Chou on the case. 3. Diabetes uncontrolled. 4. Urinary tract infection and pneumonia. PLAN: The patient is started on Levaquin and IV vancomycin per pharmacy. We will wait for the culture results. Modify antibiotic accordingly. Repeat labs tomorrow. Supportive care. Rest of the care as order in CPOE. Also, the patient on hydralazine for hypertension along with Norvasc. Thank you Dr. Castaneda for this consultation. Critical care of 40 minutes. JOB# [id number]
[2017-09-16 05:33] LABS: % BASOPHILS 0.6 % (0.0-2.0); % EOSINOPHILS 4.7 % (0.0-5.0); % LYMPHOCYTES 19.5 % (20.0-50.0); % NEUTROPHILS 68.2 % (40.0-80.0); BASOPHILE ABSOLUTE 0.1 Th/cumm (0-0.2); EOSINOPHILE ABSOLUTE 0.5 Th/cmm (0.1-0.4); HEMOGLOBIN 8.8 gm/dL (12-16); MEAN CELL VOLUME 89.7 fl (81-100); MEAN CORPUSCULAR HEMOGLOBIN 30.2 pg (27.0-31.0); MEAN CORPUSCULAR HGB CONC 33.7 pg (28.0-36.0); MEAN PLATELET VOLUME 10.8 fl; MONOCYTE ABSOLUTE 0.7 Th/cmm (0.3-1.0); PLATELET COUNT 187 Th/cmm (150-400); RED CELL DISTRIBUTION WIDTH 14.8 % (11.5-20.0); WHITE BLOOD COUNT 10.3 Th/cmm (4.8-10.8)
[2017-09-16 05:59] LABS: ANION GAP 7.6 (7.0-16.0); BUN - UREA NITROGEN 24 mg/dL (7-25); CHLORIDE 108 mEq/L (98-107); GLUCOSE 158 mg/dL (70-105); POTASSIUM SERUM 3.6 mEq/L (3.5-5.1); SODIUM SERUM 137 mEq/L (136-145)
[2017-09-16 06:00] LABS: CALCIUM SERUM 8.3 mg/dL (8.6-10.3)
[2017-09-16] MEDS: INSULIN ASPART SLIDING SCALE 100 UNITS/ML UNIT SUBQ SCH ×4 (07:01→20:44)
[2017-09-16 07:28] LABS: ALKALINE PHOSPHATASE 92 U/L (34-104); BILIRUBIN,TOTAL 0.3 mg/dL (0.3-1.0); SGOT 9 U/L (13-39); SGPT/ALT 8 U/L (7-52); TOTAL PROTEIN,SERUM 5.8 gm/dL (6.0-8.3)
[2017-09-16] MEDS: Multivitamin w/ Minerals Tab PO SCH (08:33)
[2017-09-16] MEDS: Insulin Detemir 100 units/mL 10mL Vial SUBQ SCH ×2 (08:44→20:44)
[2017-09-16] MEDS: Sodium Chloride 0.9% 1,000 ML IV SCH ×2 (08:55→20:39)
[2017-09-16] MEDS: Vitamin A/Vitamin D 5 gm Packet TP SCH (09:00)
[2017-09-16] MEDS: Ascorbic Acid 500 mg/5 mL UDC GT SCH (09:00)
--- NOTE | 2017-09-16 09:05 | General Progress Note ---
Subjective - Review of Systems Events since last encounter: no distress gtube intact Objective - Results Result Diagrams: 09/16/17 04:30 09/16/17 06:00 Recent Labs: Laboratory Last Values WBC 10.3 Th/cmm (4.8-10.8) D 09/16/17 04:30 RBC 2.90 Mil/cmm (3.80-5.20) L 09/16/17 04:30 Hgb 8.8 gm/dL (12-16) L 09/16/17 04:30 Hct 26.0 % (41.0-60) L 09/16/17 04:30 MCV 89.7 fl (81-100) 09/16/17 04:30 MCH 30.2 pg (27.0-31.0) 09/16/17 04:30 MCHC Differential 33.7 pg (28.0-36.0) 09/16/17 04:30 RDW 14.8 % (11.5-20.0) 09/16/17 04:30 Plt Count 187 Th/cmm (150-400) 09/16/17 04:30 MPV 10.8 fl 09/16/17 04:30 Neutrophils % 68.2 % (40.0-80.0) 09/16/17 04:30 Band Neutrophils % 3 % (0-10) 09/15/17 05:50 Lymphocytes % 19.5 % (20.0-50.0) L 09/16/17 04:30 Monocytes % 7.0 % (2.0-10.0) 09/16/17 04:30 Eosinophils % 4.7 % (0.0-5.0) 09/16/17 04:30 Basophils % 0.6 % (0.0-2.0) 09/16/17 04:30 Neutrophils (Manual) 67 % (40-80) 09/15/17 05:50 Lymphocytes 19 % (20-50) L 09/15/17 05:50 Monocytes 8 % (2-10) 09/15/17 05:50 Eosinophils 3 % (0-5) 09/15/17 05:50 Metamyelocytes 2 % (0-0) H 09/13/17 14:28 Myelocytes 1 % 09/13/17 14:28 Hypochromia 1+ 09/13/17 14:28 Platelet Estimate ADEQUATE (NORMAL) 09/13/17 14:28 PT 9.3 SECONDS (9.5-11.5) L 09/13/17 14:28 INR 0.90 (0.5-1.4) 09/13/17 14:28 PTT (Actin FS) SECONDS (26.0-38.0) 09/13/17 14:28 Sodium 137 mEq/L (136-145) 09/16/17 06:00 Potassium 3.6 mEq/L (3.5-5.1) 09/16/17 06:00 Chloride 108 mEq/L (98-107) H 09/16/17 06:00 Carbon Dioxide 25.0 mEq/L (21.0-31.0) 09/16/17 06:00 Anion Gap 7.6 (7.0-16.0) 09/16/17 06:00 BUN 24 mg/dL (7-25) 09/16/17 06:00 Creatinine 1.0 mg/dL (0.6-1.2) 09/16/17 06:00 Est GFR ( Amer) TNP 09/16/17 06:00 Est GFR (Non-Af Amer) TNP 09/16/17 06:00 BUN/Creatinine Ratio 24.0 09/16/17 06:00 Glucose 158 mg/dL (70-105) H 09/16/17 06:00 POC Glucose 152 MG/DL (70 - 105) H 09/16/17 08:43 Whole Bld Lactic Acid 1.04 mmol/L (0.60-1.99) 09/14/17 10:30 Calcium 8.3 mg/dL (8.6-10.3) L 09/16/17 06:00 Phosphorus 2.9 mg/dL (2.5-5.0) 09/14/17 10:30 Magnesium 2.3 mg/dL (1.9-2.7) 09/14/17 10:30 Total Bilirubin 0.3 mg/dL (0.3-1.0) 09/16/17 06:00 Direct Bilirubin 0.08 mg/dL (0.0-0.2) 09/13/17 15:30 AST 9 U/L (13-39) L 09/16/17 06:00 ALT 8 U/L (7-52) 09/16/17 06:00 Alkaline Phosphatase 92 U/L (34-104) 09/16/17 06:00 Ammonia 45 umol/L (16-53) 09/14/17 10:30 Total Protein 5.8 gm/dL (6.0-8.3) L 09/16/17 06:00 Albumin 3.0 gm/dL (3.7-5.3) L 09/16/17 06:00 Globulin 2.7 gm/dL 09/14/17 10:30 Albumin/Globulin Ratio 1.2 (1.0-1.8) 09/14/17 10:30 Lipase 18 U/L (11-82) 09/13/17 15:30 Serum Ketones SMALL (NEGATIVE) H 09/13/17 15:30 - Physical Exam Vitals and I&O: Vital Signs Temp 97.2 F 09/16/17 05:00 Pulse 71 09/16/17 08:38 Resp 18 09/16/17 07:51 BP 154/54 09/16/17 08:38 Pulse Ox 100 09/16/17 07:51 Intake & Output 09/15/17 09/16/17 09/16/17 18:59 06:59 18:59 Intake Total 3700 1600 Output Total 3470 750 Balance 230 850 Weight (lbs) 62.142 kg 62.142 kg Intake: Intake, IV Amount 1300 1000 Levofloxacin 250mg/50mL 50 250 mg In 50 ml @ 50 mls/ hr IV Q48HR [facility] Rx#: [id number] Sodium Chloride 0.9% 1, 1000 1000 000 ml @ 125 mls/hr IV . Q8H [facility] Rx#:[id number] Vancomycin HCl 1.25 gm In 250 Dextrose 5% 250 ml @ 165 mls/hr IV Q24H NEENA Rx#: [id number] Oral 0 Tube Feeding 1200 600 TPN/PPN 600 Other 600 Output: Urine 3470 750 Other: # Bowel Movements 2 0 Stool Characteristics Soft Formed Active Medications: Current Medications Acetaminophen (Tylenol) 650 mg PO Q4HR PRN PRN Reason: MILD PAIN OR TEMP >101F Stop: 11/12/17 21:55 Acetaminophen (Tylenol Extra Strength) 1,000 mg PO Q4HR PRN PRN Reason: MOD PAIN Stop: 11/12/17 21:55 Last Admin: 09/15/17 16:22 Dose: 1,000 mg Amlodipine Besylate (Norvasc) 5 mg GT DAILY [facility] Stop: 11/13/17 08:59 Last Admin: 09/16/17 08:38 Dose: 5 mg Ascorbic Acid (Vitamin C) 500 mg GT DAILY [facility] Stop: 11/13/17 08:59 Last Admin: 09/15/17 09:54 Dose: Not Given Bisacodyl (Dulcolax 10 Mg Supp) 10 mg RC DAILY PRN PRN Reason: Constipation Stop: 11/12/17 21:55 Hydralazine HCl (Apresoline) 50 mg GT TID [facility] Stop: 11/13/17 08:59 Last Admin: 09/16/17 08:34 Dose: 50 mg Sodium Chloride (Nacl 0.9%) 1,000 mls @ 125 mls/hr IV .Q8H [facility] Stop: 11/12/17 19:21 Last Admin: 09/16/17 08:55 Dose: 125 mls/hr Levofloxacin (Levaquin Pb) 250 mg in 50 mls @ 50 mls/hr IV Q48HR [facility] Stop: 11/14/17 13:59 Last Infusion: 09/15/17 15:32 Dose: Infused Vancomycin HCl 1.25 gm/ (Dextrose) 250 mls @ 165 mls/hr IV Q24H [facility] Stop: 11/14/17 08:59 Last Infusion: 09/15/17 11:24 Dose: Infused Insulin Aspart (Novolog Insulin Sliding Scale) 0 units SUBQ ACHS NEENA PRN Reason: Protocol Stop: 11/13/17 07:29 Last Admin: 09/16/17 07:01 Dose: 2 units Insulin Detemir (Levemir Insulin) 30 units SUBQ Q12HR [facility]EENA PRN Reason: Protocol Stop: 11/13/17 08:59 Last Admin: 09/16/17 08:44 Dose: 30 units Magnesium Hydroxide (Milk Of Magnesia) 30 ml GT HS PRN PRN Reason: Constipation Stop: 11/12/17 21:55 Memantine (Namenda) 10 mg GT BID [facility] Stop: 11/13/17 08:59 Last Admin: 09/16/17 08:33 Dose: 10 mg Miscellaneous (Vte Chemical Prophylaxis Screen/ Admission) 1 ea MC PRN PRN PRN Reason: PROTOCOL Stop: 11/13/17 14:58 Miscellaneous (Vancomycin Iv Per Pharmacy) 1 ea MC PRN [facility] Stop: 11/13/17 15:59 Pantoprazole Sodium (Protonix) 40 mg IVP DAILY [facility] Stop: 11/13/17 08:59 Last Admin: 09/16/17 08:32 Dose: 40 mg Senna (Senna) 17.2 mg GT HS [facility] Stop: 11/13/17 20:59 Last Admin: 09/15/17 20:55 Dose: 17.2 mg Sodium Phosphate (Fleet Enema) 135 ml RC Q48H PRN PRN Reason: Constipation Stop: 11/12/17 21:55 Vitamin A (Vitamin A & D) 5 gm TP DAILY [facility] Stop: 11/13/17 08:59 Last Admin: 09/15/17 09:31 Dose: 5 gm Zinc Sulfate (Zinc Sulfate) 220 mg GT DAILY [facility] Stop: 11/13/17 08:59 Last Admin: 09/16/17 08:33 Dose: 220 mg General: No acute distress HEENT: Atraumatic Cardiovascular: Regular rate, Normal S1, Normal S2 Lungs: Clear to auscultation Assessment/Plan - Problem List Patient Problems: All Active Problems ELEVATED BLOOD GLUCOSE (Acute) - Plan Plan: as per order sheet Nutritional Asmnt/Malnutr-PDOC - Dietary Evaluation Malnutrition Findings (Please click <Entered> for more info): Nutritional Asmnt/Malnutrition Start: 09/14/17 15: 27 Text: Status: Complete Freq: Document 09/14/17 15:27 LCHENG (Rec: 09/14/17 16:06 LCHENG [email or web address]) Nutritional Asmnt/Malnutrition Patient General Information Nutritional Screening High Risk Consult Diagnosis DKA, Urosepsis Pertinent Medical Hx/Surgical Hx HTN, dementia, DM, CAD, COPD, CHF, PEG, bilateral AKA Subjective Information Consult received for DKA and ibrahima 12. pt seen sleeping in bed during the time of visit. Considering bilateral AKA, adjusted BMI = 25.3. Per notes , pt had coffee ground emeis today. Noted pt has chewing difficulty and swallowing impaired per notes. Current Diet Order/ Nutrition Support no diet order Pertinent Medications Vitamin C, novolog, levemir, levaquin, protonix, senna, nacl 0.9%, vitamin A&D, Zinc Pertinent Labs 09/14 Na 142, K 4.1, Cl 110, BUN 44, Cr 1.7, Glucose 207, POC 203-436, AST 12, ALT 12, Alb 3.2 09/13 Glucose 541, POC 436-452 Nutritional Hx/Data Height 1.73 m Height (Calculated Centimeters) 172.7 Current Weight (lbs) 60.781 kg Weight (Calculated Kilograms) 60.8 Weight (Calculated Grams) 43071.4 [place] Body Weight 112 % [place] Body Weight 120 Body Mass Index (BMI) 20.3 GI Symptoms GI Symptoms Vomitting Last BM 09/14 Skin Integrity/Comment: intact Estimated Nutritional Goals BEE in Kcals: Using Current wt Calories/Kcals/Kg 23- (bedbound) Kcals Calculated 8803-4110 Protein: Using Current wt Protein g/k-1.2 monitor renal labs Protein Calculated 61-73 Fluid: ml 6102-6212 Nutritional Problem 1. Problem Problem altered nutrition related lab values Etiology hx of DM Signs/Symptoms: Glucose 207, POC 203-436 Malnutrition Alert Protein-Calorie Malnutrition N/A Is there a minimum of two criteria No selected? Query Text:Check all the applicable criteria. A minimum of two criteria are recommended for diagnosis of either severe or non-severe malnutrition. Intervention/Recommendation Comments 1. Monitor NPO status. 2. if enteral nutrition needed , recommend start Diabetisource AC at 20ml/hr, increased 10ml/hr q6hr to goal rate of 50ml/hr continuous. This will provide 1440kcal, 72g protein and 982ml water, meeting 100% of nutritional needs. 3. F/U as high risk in 2-3 days. Expected Outcomes/Goals Expected Outcomes/Goals 1. Pt to meet at least 75% of nutritional needs via nutrition support with tolerance 2. 2. Wt stability, skin to remain intact, labs to improve .
--- NOTE | 2017-09-16 21:35 | Internal Medicine Prog Note ---
Internal Medicine Subjective - Subjective Service Date: 09/16/17 Patient seen and examined:: with staff Patient is:: awake Per staff patient has:: tolerating meds Internal Medicine Objective - Results Result Diagrams: 09/16/17 04:30 09/16/17 06:00 Recent Labs: Laboratory Last Values WBC 10.3 Th/cmm (4.8-10.8) D 09/16/17 04:30 RBC 2.90 Mil/cmm (3.80-5.20) L 09/16/17 04:30 Hgb 8.8 gm/dL (12-16) L 09/16/17 04:30 Hct 26.0 % (41.0-60) L 09/16/17 04:30 MCV 89.7 fl (81-100) 09/16/17 04:30 MCH 30.2 pg (27.0-31.0) 09/16/17 04:30 MCHC Differential 33.7 pg (28.0-36.0) 09/16/17 04:30 RDW 14.8 % (11.5-20.0) 09/16/17 04:30 Plt Count 187 Th/cmm (150-400) 09/16/17 04:30 MPV 10.8 fl 09/16/17 04:30 Neutrophils % 68.2 % (40.0-80.0) 09/16/17 04:30 Band Neutrophils % 3 % (0-10) 09/15/17 05:50 Lymphocytes % 19.5 % (20.0-50.0) L 09/16/17 04:30 Monocytes % 7.0 % (2.0-10.0) 09/16/17 04:30 Eosinophils % 4.7 % (0.0-5.0) 09/16/17 04:30 Basophils % 0.6 % (0.0-2.0) 09/16/17 04:30 Neutrophils (Manual) 67 % (40-80) 09/15/17 05:50 Lymphocytes 19 % (20-50) L 09/15/17 05:50 Monocytes 8 % (2-10) 09/15/17 05:50 Eosinophils 3 % (0-5) 09/15/17 05:50 Metamyelocytes 2 % (0-0) H 09/13/17 14:28 Myelocytes 1 % 09/13/17 14:28 Hypochromia 1+ 09/13/17 14:28 Platelet Estimate ADEQUATE (NORMAL) 09/13/17 14:28 PT 9.3 SECONDS (9.5-11.5) L 09/13/17 14:28 INR 0.90 (0.5-1.4) 09/13/17 14:28 PTT (Actin FS) SECONDS (26.0-38.0) 09/13/17 14:28 Sodium 137 mEq/L (136-145) 09/16/17 06:00 Potassium 3.6 mEq/L (3.5-5.1) 09/16/17 06:00 Chloride 108 mEq/L (98-107) H 09/16/17 06:00 Carbon Dioxide 25.0 mEq/L (21.0-31.0) 09/16/17 06:00 Anion Gap 7.6 (7.0-16.0) 09/16/17 06:00 BUN 24 mg/dL (7-25) 09/16/17 06:00 Creatinine 1.0 mg/dL (0.6-1.2) 09/16/17 06:00 Est GFR ( Amer) TNP 09/16/17 06:00 Est GFR (Non-Af Amer) TNP 09/16/17 06:00 BUN/Creatinine Ratio 24.0 09/16/17 06:00 Glucose 158 mg/dL (70-105) H 09/16/17 06:00 POC Glucose 189 MG/DL (70 - 105) H 09/16/17 20:12 Whole Bld Lactic Acid 1.04 mmol/L (0.60-1.99) 09/14/17 10:30 Calcium 8.3 mg/dL (8.6-10.3) L 09/16/17 06:00 Phosphorus 2.9 mg/dL (2.5-5.0) 09/14/17 10:30 Magnesium 2.3 mg/dL (1.9-2.7) 09/14/17 10:30 Total Bilirubin 0.3 mg/dL (0.3-1.0) 09/16/17 06:00 Direct Bilirubin 0.08 mg/dL (0.0-0.2) 09/13/17 15:30 AST 9 U/L (13-39) L 09/16/17 06:00 ALT 8 U/L (7-52) 09/16/17 06:00 Alkaline Phosphatase 92 U/L (34-104) 09/16/17 06:00 Ammonia 45 umol/L (16-53) 09/14/17 10:30 Total Protein 5.8 gm/dL (6.0-8.3) L 09/16/17 06:00 Albumin 3.0 gm/dL (3.7-5.3) L 09/16/17 06:00 Globulin 2.7 gm/dL 09/14/17 10:30 Albumin/Globulin Ratio 1.2 (1.0-1.8) 09/14/17 10:30 Lipase 18 U/L (11-82) 09/13/17 15:30 Vancomycin Trough 21.5 ug/mL (10-20) H 09/16/17 08:00 Serum Ketones SMALL (NEGATIVE) H 09/13/17 15:30 - Physical Exam Vitals and I&O: Vital Signs Temp 99.2 F 09/16/17 20:00 Pulse 78 09/16/17 20:41 Resp 18 09/16/17 20:00 BP 147/51 09/16/17 20:41 Pulse Ox 99 09/16/17 20:00 Intake & Output 09/16/17 09/16/17 09/17/17 06:59 18:59 06:59 Intake Total 1600 1950 100 Output Total 750 1250 Balance 850 700 100 Weight (lbs) 137 lb 141 lb 12.8 oz Intake: Intake, IV Amount 1000 1000 100 Piperacillin Sodium/ 100 Tazobact 4.5 gm In Sodium Chloride 0.9% 100 ml @ 100 mls/hr IV Q8H [facility] Rx# :[id number] Sodium Chloride 0.9% 1, 1000 1000 000 ml @ 125 mls/hr IV . Q8H [facility] Rx#:[id number] Tube Feeding 600 650 Other 300 Output: Urine 750 1250 Other: # Bowel Movements 0 0 Active Medications: Current Medications Acetaminophen (Tylenol) 650 mg PO Q4HR PRN PRN Reason: MILD PAIN OR TEMP >101F Stop: 11/12/17 21:55 Acetaminophen (Tylenol Extra Strength) 1,000 mg PO Q4HR PRN PRN Reason: MOD PAIN Stop: 11/12/17 21:55 Last Admin: 09/15/17 16:22 Dose: 1,000 mg Amlodipine Besylate (Norvasc) 5 mg GT DAILY [facility] Stop: 11/13/17 08:59 Last Admin: 09/16/17 08:38 Dose: 5 mg Ascorbic Acid (Vitamin C) 500 mg GT DAILY [facility] Stop: 11/13/17 08:59 Last Admin: 09/16/17 09:00 Dose: Not Given Bisacodyl (Dulcolax 10 Mg Supp) 10 mg RC DAILY PRN PRN Reason: Constipation Stop: 11/12/17 21:55 Hydralazine HCl (Apresoline) 50 mg GT TID [facility] Stop: 11/13/17 08:59 Last Admin: 09/16/17 20:41 Dose: 50 mg Sodium Chloride (Nacl 0.9%) 1,000 mls @ 125 mls/hr IV .Q8H [facility] Stop: 11/12/17 19:21 Last Admin: 09/16/17 20:39 Dose: 125 mls/hr Vancomycin HCl 1 gm/ Sodium (Chloride) 250 mls @ 165 mls/hr IV Q24H [facility] Stop: 11/15/17 10:59 Last Admin: 09/16/17 12:28 Dose: 165 mls/hr Piperacillin Sod/Tazobactam (Sod 4.5 gm/ Sodium Chloride) 100 mls @ 100 mls/hr IV Q8H [facility] Stop: 11/15/17 12:59 Last Admin: 09/16/17 21:16 Dose: 100 mls/hr Insulin Aspart (Novolog Insulin Sliding Scale) 0 units SUBQ ACHS [facility]EENA PRN Reason: Protocol Stop: 11/13/17 07:29 Last Admin: 09/16/17 20:44 Dose: 2 units Insulin Detemir (Levemir Insulin) 30 units SUBQ Q12HR [facility] PRN Reason: Protocol Stop: 11/13/17 08:59 Last Admin: 09/16/17 20:44 Dose: 30 units Magnesium Hydroxide (Milk Of Magnesia) 30 ml GT HS PRN PRN Reason: Constipation Stop: 11/12/17 21:55 Memantine (Namenda) 10 mg GT BID [facility] Stop: 11/13/17 08:59 Last Admin: 09/16/17 16:56 Dose: 10 mg Miscellaneous (Vte Chemical Prophylaxis Screen/ Admission) 1 ea PRN PRN PRN Reason: PROTOCOL Stop: 11/13/17 14:58 Miscellaneous (Vancomycin Iv Per Pharmacy) 1 ea PRN [facility] Stop: 11/13/17 15:59 Pantoprazole Sodium (Protonix) 40 mg IVP DAILY [facility] Stop: 11/13/17 08:59 Last Admin: 09/16/17 08:32 Dose: 40 mg Senna (Senna) 17.2 mg GT HS [facility] Stop: 11/13/17 20:59 Last Admin: 09/16/17 20:41 Dose: 17.2 mg Sodium Phosphate (Fleet Enema) 135 ml RC Q48H PRN PRN Reason: Constipation Stop: 11/12/17 21:55 Vitamin A (Vitamin A & D) 5 gm TP DAILY [facility] Stop: 11/13/17 08:59 Last Admin: 09/16/17 09:00 Dose: 5 gm Zinc Sulfate (Zinc Sulfate) 220 mg GT DAILY [facility] Stop: 11/13/17 08:59 Last Admin: 09/16/17 08:33 Dose: 220 mg General: alert HEENT: NC/AT, PERRLA Neck: Supple Lungs: CTAB Cardiovascular: RRR Abdomen: soft, non-tender, non-distended Extremities: excoriation Neurological: no change Internal Medicine Assmt/Plan - Assessment Assessment: Current Active Problems Problem Status Onset ELEVATED BLOOD GLUCOSE Acute DKA urosepsis hyperemesis htn dementia dm cad copd chf - Plan Plan: renal ultrasound and renal consult monitor glucose accucheck with sliding scale follow up labs in am ivf for hydration continue current orders Nutritional Asmnt/Malnutr-PDOC - Dietary Evaluation Malnutrition Findings (Please click <Entered> for more info): Nutritional Asmnt/Malnutrition Start: 09/14/17 15: 27 Text: Status: Complete Freq: Document 09/14/17 15:27 DANO (Rec: 09/14/17 16:06 DANO [email or web address]) Nutritional Asmnt/Malnutrition Patient General Information Nutritional Screening High Risk Consult Diagnosis DKA, Urosepsis Pertinent Medical Hx/Surgical Hx HTN, dementia, DM, CAD, COPD, CHF, PEG, bilateral AKA Subjective Information Consult received for DKA and ibrahima 12. pt seen sleeping in bed during the time of visit. Considering bilateral AKA, adjusted BMI = 25.3. Per notes , pt had coffee ground emeis today. Noted pt has chewing difficulty and swallowing impaired per notes. Current Diet Order/ Nutrition Support no diet order Pertinent Medications Vitamin C, novolog, levemir, levaquin, protonix, senna, nacl 0.9%, vitamin A&D, Zinc Pertinent Labs 09/14 Na 142, K 4.1, Cl 110, BUN 44, Cr 1.7, Glucose 207, POC 203-436, AST 12, ALT 12, Alb 3.2 09/13 Glucose 541, POC 436-452 Nutritional Hx/Data Height 5 ft 8 in Height (Calculated Centimeters) 172.7 Current Weight (lbs) 134 lb Weight (Calculated Kilograms) 60.8 Weight (Calculated Grams) 40584.4 [place] Body Weight 112 % [place] Body Weight 120 Body Mass Index (BMI) 20.3 GI Symptoms GI Symptoms Vomitting Last BM 09/14 Skin Integrity/Comment: intact Estimated Nutritional Goals BEE in Kcals: Using Current wt Calories/Kcals/Kg 23-27 (bedbound) Kcals Calculated 8116-2412 Protein: Using Current wt Protein g/k-1.2 monitor renal labs Protein Calculated 61-73 Fluid: ml 8545-0139 Nutritional Problem 1. Problem Problem altered nutrition related lab values Etiology hx of DM Signs/Symptoms: Glucose 207, POC 203-436 Malnutrition Alert Protein-Calorie Malnutrition N/A Is there a minimum of two criteria No selected? Query Text:Check all the applicable criteria. A minimum of two criteria are recommended for diagnosis of either severe or non-severe malnutrition. Intervention/Recommendation Comments 1. Monitor NPO status. 2. if enteral nutrition needed , recommend start Diabetisource AC at 20ml/hr, increased 10ml/hr q6hr to goal rate of 50ml/hr continuous. This will provide 1440kcal, 72g protein and 982ml water, meeting 100% of nutritional needs. 3. F/U as high risk in 2-3 days. Expected Outcomes/Goals Expected Outcomes/Goals 1. Pt to meet at least 75% of nutritional needs via nutrition support with tolerance 2. 2. Wt stability, skin to remain intact, labs to improve .
[2017-09-17 06:11] LABS: % BASOPHILS 0.3 % (0.0-2.0); % EOSINOPHILS 4.5 % (0.0-5.0); % LYMPHOCYTES 23.5 % (20.0-50.0); % MONOCYTES 7.2 % (2.0-10.0); % NEUTROPHILS 64.5 % (40.0-80.0); EOSINOPHILE ABSOLUTE 0.4 Th/cmm (0.1-0.4); HEMATOCRIT 26.8 % (41.0-60); LYMPHOCYTE ABSOLUTE 2.1 Th/cmm (1.5-3.0); MEAN CELL VOLUME 88.9 fl (81-100); MEAN CORPUSCULAR HEMOGLOBIN 29.7 pg (27.0-31.0); MEAN CORPUSCULAR HGB CONC 33.4 pg (28.0-36.0); MEAN PLATELET VOLUME 9.5 fl; MONOCYTE ABSOLUTE 0.6 Th/cmm (0.3-1.0); NEUTROPHILE ABSOLUTE 5.9 Th/cmm (1.8-8.0); PLATELET COUNT 206 Th/cmm (150-400); RED BLOOD COUNT 3.01 Mil/cmm (3.80-5.20)
[2017-09-17] MEDS: INSULIN ASPART SLIDING SCALE 100 UNITS/ML UNIT SUBQ SCH ×3 (06:30→17:52)
[2017-09-17] MEDS: Sodium Chloride 0.9% 1,000 ML IV SCH ×2 (06:37→09:29)
[2017-09-17 06:49] LABS: ALBUMIN 2.9 gm/dL (3.7-5.3); ALKALINE PHOSPHATASE 99 U/L (34-104); ANION GAP 11.5 (7.0-16.0); BILIRUBIN,TOTAL 0.3 mg/dL (0.3-1.0); BUN - UREA NITROGEN 20 mg/dL (7-25); CALCIUM SERUM 8.1 mg/dL (8.6-10.3); CARBON DIOXIDE 22.6 mEq/L (21.0-31.0); CHLORIDE 107 mEq/L (98-107); CREATININE - SERUM 0.9 mg/dL (0.6-1.2); GLUCOSE 206 mg/dL (70-105); POTASSIUM SERUM 4.1 mEq/L (3.5-5.1); SGOT 11 U/L (13-39); SGPT/ALT 8 U/L (7-52); SODIUM SERUM 137 mEq/L (136-145); TOTAL PROTEIN,SERUM 5.7 gm/dL (6.0-8.3)
[2017-09-17] MEDS: Multivitamin w/ Minerals Tab PO SCH (09:24)
[2017-09-17] MEDS: Vitamin A/Vitamin D 5 gm Packet TP SCH (09:28)
[2017-09-17] MEDS: Insulin Detemir 100 units/mL 10mL Vial SUBQ SCH (09:34)
[2017-09-17] MEDS: Ascorbic Acid 500 mg/5 mL UDC GT SCH (11:48)
--- NOTE | 2017-09-17 11:59 | Internal Medicine Prog Note ---
Internal Medicine Subjective - Subjective Service Date: 09/17/17 Patient seen and examined:: with staff Patient is:: awake Per staff patient has:: tolerating meds Internal Medicine Objective - Results Result Diagrams: 09/17/17 05:45 09/17/17 05:45 Recent Labs: Laboratory Last Values WBC 9.0 Th/cmm (4.8-10.8) 09/17/17 05:45 RBC 3.01 Mil/cmm (3.80-5.20) L 09/17/17 05:45 Hgb 9.0 gm/dL (12-16) L 09/17/17 05:45 Hct 26.8 % (41.0-60) L 09/17/17 05:45 MCV 88.9 fl (81-100) 09/17/17 05:45 MCH 29.7 pg (27.0-31.0) 09/17/17 05:45 MCHC Differential 33.4 pg (28.0-36.0) 09/17/17 05:45 RDW 14.0 % (11.5-20.0) 09/17/17 05:45 Plt Count 206 Th/cmm (150-400) 09/17/17 05:45 MPV 9.5 fl 09/17/17 05:45 Neutrophils % 64.5 % (40.0-80.0) 09/17/17 05:45 Band Neutrophils % 3 % (0-10) 09/15/17 05:50 Lymphocytes % 23.5 % (20.0-50.0) 09/17/17 05:45 Monocytes % 7.2 % (2.0-10.0) 09/17/17 05:45 Eosinophils % 4.5 % (0.0-5.0) 09/17/17 05:45 Basophils % 0.3 % (0.0-2.0) 09/17/17 05:45 Neutrophils (Manual) 67 % (40-80) 09/15/17 05:50 Lymphocytes 19 % (20-50) L 09/15/17 05:50 Monocytes 8 % (2-10) 09/15/17 05:50 Eosinophils 3 % (0-5) 09/15/17 05:50 Metamyelocytes 2 % (0-0) H 09/13/17 14:28 Myelocytes 1 % 09/13/17 14:28 Hypochromia 1+ 09/13/17 14:28 Platelet Estimate ADEQUATE (NORMAL) 09/13/17 14:28 PT 9.3 SECONDS (9.5-11.5) L 09/13/17 14:28 INR 0.90 (0.5-1.4) 09/13/17 14:28 PTT (Actin FS) SECONDS (26.0-38.0) 09/13/17 14:28 Sodium 137 mEq/L (136-145) 09/17/17 05:45 Potassium 4.1 mEq/L (3.5-5.1) 09/17/17 05:45 Chloride 107 mEq/L (98-107) 09/17/17 05:45 Carbon Dioxide 22.6 mEq/L (21.0-31.0) 09/17/17 05:45 Anion Gap 11.5 (7.0-16.0) 09/17/17 05:45 BUN 20 mg/dL (7-25) 09/17/17 05:45 Creatinine 0.9 mg/dL (0.6-1.2) 09/17/17 05:45 Est GFR ( Amer) TNP 09/17/17 05:45 Est GFR (Non-Af Amer) TNP 09/17/17 05:45 BUN/Creatinine Ratio 22.2 09/17/17 05:45 Glucose 206 mg/dL (70-105) H 09/17/17 05:45 POC Glucose 176 MG/DL (70 - 105) H 09/17/17 05:51 Whole Bld Lactic Acid 1.04 mmol/L (0.60-1.99) 09/14/17 10:30 Calcium 8.1 mg/dL (8.6-10.3) L 09/17/17 05:45 Phosphorus 2.9 mg/dL (2.5-5.0) 09/14/17 10:30 Magnesium 2.3 mg/dL (1.9-2.7) 09/14/17 10:30 Total Bilirubin 0.3 mg/dL (0.3-1.0) 09/17/17 05:45 Direct Bilirubin 0.08 mg/dL (0.0-0.2) 09/13/17 15:30 AST 11 U/L (13-39) L 09/17/17 05:45 ALT 8 U/L (7-52) 09/17/17 05:45 Alkaline Phosphatase 99 U/L (34-104) 09/17/17 05:45 Ammonia 45 umol/L (16-53) 09/14/17 10:30 Total Protein 5.7 gm/dL (6.0-8.3) L 09/17/17 05:45 Albumin 2.9 gm/dL (3.7-5.3) L 09/17/17 05:45 Globulin 2.8 gm/dL 09/17/17 05:45 Albumin/Globulin Ratio 1.0 (1.0-1.8) 09/17/17 05:45 Lipase 18 U/L (11-82) 09/13/17 15:30 Vancomycin Trough 21.5 ug/mL (10-20) H 09/16/17 08:00 Serum Ketones SMALL (NEGATIVE) H 09/13/17 15:30 - Physical Exam Vitals and I&O: Vital Signs Temp 99 F 09/17/17 08:00 Pulse 65 09/17/17 09:23 Resp 18 09/17/17 11:35 BP 150/61 09/17/17 09:23 Pulse Ox 100 09/17/17 08:00 Intake & Output 09/16/17 09/17/17 09/17/17 18:59 06:59 18:59 Intake Total 1950 1300 358.333 Output Total 1250 Balance 700 1300 358.333 Weight (lbs) 141 lb 12.8 oz 148 lb 6.4 oz Intake: Intake, IV Amount 1000 1300 358.333 Piperacillin Sodium/ 300 Tazobact 4.5 gm In Sodium Chloride 0.9% 100 ml @ 100 mls/hr IV Q8H [facility] Rx# :[id number] Sodium Chloride 0.9% 1, 1000 1000 358.333 000 ml @ 125 mls/hr IV . Q8H [facility] Rx#:[id number] Tube Feeding 650 Other 300 Output: Urine 1250 Other: # Bowel Movements 0 Active Medications: Current Medications Acetaminophen (Tylenol) 650 mg PO Q4HR PRN PRN Reason: MILD PAIN OR TEMP >101F Stop: 11/12/17 21:55 Acetaminophen (Tylenol Extra Strength) 1,000 mg PO Q4HR PRN PRN Reason: MOD PAIN Stop: 11/12/17 21:55 Last Admin: 09/15/17 16:22 Dose: 1,000 mg Amlodipine Besylate (Norvasc) 5 mg GT DAILY [facility] Stop: 11/13/17 08:59 Last Admin: 09/17/17 09:23 Dose: 5 mg Ascorbic Acid (Vitamin C) 500 mg GT DAILY [facility] Stop: 11/13/17 08:59 Last Admin: 09/17/17 11:48 Dose: Not Given Bisacodyl (Dulcolax 10 Mg Supp) 10 mg RC DAILY PRN PRN Reason: Constipation Stop: 11/12/17 21:55 Hydralazine HCl (Apresoline) 50 mg GT TID [facility] Stop: 11/13/17 08:59 Last Admin: 09/17/17 09:23 Dose: 50 mg Sodium Chloride (Nacl 0.9%) 1,000 mls @ 125 mls/hr IV .Q8H [facility] Stop: 11/12/17 19:21 Last Admin: 09/17/17 09:29 Dose: 125 mls/hr Piperacillin Sod/Tazobactam (Sod 4.5 gm/ Sodium Chloride) 100 mls @ 100 mls/hr IV Q8H [facility] Stop: 11/15/17 12:59 Last Infusion: 09/17/17 06:38 Dose: Infused Vancomycin HCl 1 gm/ Sodium (Chloride) 250 mls @ 165 mls/hr IV Q36H [facility] Stop: 11/16/17 22:59 Insulin Aspart (Novolog Insulin Sliding Scale) 0 units SUBQ ACHS [facility] PRN Reason: Protocol Stop: 11/13/17 07:29 Last Admin: 09/17/17 06:30 Dose: 2 units Insulin Detemir (Levemir Insulin) 30 units SUBQ Q12HR [facility] PRN Reason: Protocol Stop: 11/13/17 08:59 Last Admin: 09/17/17 09:34 Dose: 30 units Magnesium Hydroxide (Milk Of Magnesia) 30 ml GT HS PRN PRN Reason: Constipation Stop: 11/12/17 21:55 Memantine (Namenda) 10 mg GT BID [facility] Stop: 11/13/17 08:59 Last Admin: 09/17/17 09:23 Dose: 10 mg Miscellaneous (Vte Chemical Prophylaxis Screen/ Admission) 1 ea [facility] PRN PRN PRN Reason: PROTOCOL Stop: 11/13/17 14:58 Miscellaneous (Vancomycin Iv Per Pharmacy) 1 ea [facility] PRN [facility] Stop: 11/13/17 15:59 Pantoprazole Sodium (Protonix) 40 mg IVP DAILY [facility] Stop: 11/13/17 08:59 Last Admin: 09/17/17 09:24 Dose: 40 mg Senna (Senna) 17.2 mg GT HS [facility] Stop: 11/13/17 20:59 Last Admin: 09/16/17 20:41 Dose: 17.2 mg Sodium Phosphate (Fleet Enema) 135 ml RC Q48H PRN PRN Reason: Constipation Stop: 11/12/17 21:55 Vitamin A (Vitamin A & D) 5 gm TP DAILY [facility] Stop: 11/13/17 08:59 Last Admin: 09/17/17 09:28 Dose: 5 gm Zinc Sulfate (Zinc Sulfate) 220 mg GT DAILY [facility] Stop: 11/13/17 08:59 Last Admin: 09/17/17 09:23 Dose: 220 mg General: alert HEENT: NC/AT, PERRLA Neck: Supple Lungs: CTAB Cardiovascular: RRR Abdomen: soft, non-tender, non-distended Extremities: excoriation Neurological: no change Internal Medicine Assmt/Plan - Assessment Assessment: Current Active Problems Problem Status Onset ELEVATED BLOOD GLUCOSE Acute DKA urosepsis hyperemesis htn dementia dm cad copd chf - Plan Plan: dc planning to snf monitor glucose accucheck with sliding scale follow up labs in am ivf for hydration continue current orders Nutritional Asmnt/Malnutr-PDOC - Dietary Evaluation Malnutrition Findings (Please click <Entered> for more info): Nutritional Asmnt/Malnutrition Start: 09/14/17 15: 27 Text: Status: Complete Freq: Document 09/14/17 15:27 LCHENG (Rec: 09/14/17 16:06 [email or web address]) Nutritional Asmnt/Malnutrition Patient General Information Nutritional Screening High Risk Consult Diagnosis DKA, Urosepsis Pertinent Medical Hx/Surgical Hx HTN, dementia, DM, CAD, COPD, CHF, PEG, bilateral AKA Subjective Information Consult received for DKA and ibrahima 12. pt seen sleeping in bed during the time of visit. Considering bilateral AKA, adjusted BMI = 25.3. Per notes , pt had coffee ground emeis today. Noted pt has chewing difficulty and swallowing impaired per notes. Current Diet Order/ Nutrition Support no diet order Pertinent Medications Vitamin C, novolog, levemir, levaquin, protonix, senna, nacl 0.9%, vitamin A&D, Zinc Pertinent Labs 09/14 Na 142, K 4.1, Cl 110, BUN 44, Cr 1.7, Glucose 207, POC 203-436, AST 12, ALT 12, Alb 3.2 09/13 Glucose 541, POC 436-452 Nutritional Hx/Data Height 5 ft 8 in Height (Calculated Centimeters) 172.7 Current Weight (lbs) 134 lb Weight (Calculated Kilograms) 60.8 Weight (Calculated Grams) 60406.4 [place] Body Weight 112 % [place] Body Weight 120 Body Mass Index (BMI) 20.3 GI Symptoms GI Symptoms Vomitting Last BM 09/14 Skin Integrity/Comment: intact Estimated Nutritional Goals BEE in Kcals: Using Current wt Calories/Kcals/Kg 23-27 (bedbound) Kcals Calculated 7155-8421 Protein: Using Current wt Protein g/k-1.2 monitor renal labs Protein Calculated 61-73 Fluid: ml 9075-1795 Nutritional Problem 1. Problem Problem altered nutrition related lab values Etiology hx of DM Signs/Symptoms: Glucose 207, POC 203-436 Malnutrition Alert Protein-Calorie Malnutrition N/A Is there a minimum of two criteria No selected? Query Text:Check all the applicable criteria. A minimum of two criteria are recommended for diagnosis of either severe or non-severe malnutrition. Intervention/Recommendation Comments 1. Monitor NPO status. 2. if enteral nutrition needed , recommend start Diabetisource AC at 20ml/hr, increased 10ml/hr q6hr to goal rate of 50ml/hr continuous. This will provide 1440kcal, 72g protein and 982ml water, meeting 100% of nutritional needs. 3. F/U as high risk in 2-3 days. Expected Outcomes/Goals Expected Outcomes/Goals 1. Pt to meet at least 75% of nutritional needs via nutrition support with tolerance 2. 2. Wt stability, skin to remain intact, labs to improve .
--- NOTE | 2017-09-17 12:29 | Operative Report ---
DATE OF SURGERY: 09/17/2017 PROCEDURE: Change of G-tube. INDICATION FOR PROCEDURE: Malfunctioning G-tube. The patient had a G-tube which has been collapsed and non-distensible. Regarding the tube itself was possible crack in it, so this was done to change it. PREOPERATIVE DIAGNOSIS: Malfunctioning G-tube. POSTOPERATIVE DIAGNOSIS: Malfunctioning G-tube status post change. DESCRIPTION OF PROCEDURE: The patient lying on her back. The old G-tube was deflated, pulled out of the patient's abdomen. A new replacement, one size 22, which was tested outside then it was inserted through the hole. Balloon was inflated, secured in place. Water was infused to the stomach and aspirated, documented it is good position. DISCUSSION: The patient had originally a tube size 24, but unfortunately in the hospital there is no size 24, so we put a 22. RECOMMENDATIONS: Resume feeding. Thank you, Dr. Castaneda for allowing me to participate in the care of the patient. If you have any further questions, please let me know. JOB# [id number]
[2017-09-18 08:07] LABS: IRON LC 58 ug/dL (27-139); TIBC (LC) 223 ug/dL (250-450); UIBC 165 ug/dL (118-369)
== END 2017-09-17 18:20 | disposition home or self-care (01) | DRG 252 ==
LOC: ER 13:46 → ICU 16:09 → TELE 09-16 12:25
PROVIDERS: ADMIT Internal Medicine; ATTEND Internal Medicine
PROC: 0D20XUZ Change Feeding Device in Upper Intestinal Tract, External Approach (ICD-10-PCS; principal; 2017-09-17)
DX: K94.23 Gastrostomy malfunction (principal); A41.9 Sepsis, unspecified organism; E11.10 Type 2 diabetes mellitus with ketoacidosis without coma; N17.9 Acute kidney failure, unspecified; J18.9 Pneumonia, unspecified organism; I13.0 Hypertensive heart and chronic kidney disease with heart failure and stage 1 through stage 4 chronic kidney disease, or unspecified chronic kidney disease; E11.22 Type 2 diabetes mellitus with diabetic chronic kidney disease; I50.9 Heart failure, unspecified; D50.9 Iron deficiency anemia, unspecified; F03.90 Unspecified dementia, unspecified severity, without behavioral disturbance, psychotic disturbance, mood disturbance, and anxiety; J44.9 Chronic obstructive pulmonary disease, unspecified; N39.0 Urinary tract infection, site not specified; R13.10 Dysphagia, unspecified; I25.10 Atherosclerotic heart disease of native coronary artery without angina pectoris; N18.2 Chronic kidney disease, stage 2 (mild); M86.8X8 Other osteomyelitis, other site; E66.9 Obesity, unspecified; E11.65 Type 2 diabetes mellitus with hyperglycemia; Z89.611 Acquired absence of right leg above knee; Z89.612 Acquired absence of left leg above knee; Z88.0 Allergy status to penicillin; Z79.4 Long term (current) use of insulin; Z79.899 Other long term (current) drug therapy; Z68.22 Body mass index [BMI] 22.0-22.9, adult
CPT/HCPCS: 36415-UA; 71010-TC; 74020-TC; 76770-TC; 80048-TC; 80053-TC; 80076-TC; 80202-TC; 82010-TC; 82040-TC; 82140-TC; 82247-TC; 82948-90; 83540-90; 83550-90; 83605; 83690-TC; 83735-TC; 84075-TC; 84100-TC; 84132-TC; 84155-TC; 84450-TC; 84460-TC; 85007-TC; 85025-TC; 85027-TC; 85610-TC; 85730-TC; 87086-90; 90799; 94640; 94760; 96374; 96375; C9113; J1815; J1956; J2543; J3370; J7030; J7613; X7704; Z7610

== ENCOUNTER 2017-10-19 18:14 | Inpatient (IN) | payer MEDICAID ==
[2017-10-19] MEDS ORDERED: INSULIN ASPART SLIDING SCALE 100 UNITS/ML UNIT SUBQ SCH (19:00)
[2017-10-19 21:12] LABS: HEMATOCRIT 27.5 % (41.0-60); MEAN CELL VOLUME 90.3 fl (81-100); MEAN CORPUSCULAR HEMOGLOBIN 29.5 pg (27.0-31.0); MEAN CORPUSCULAR HGB CONC 32.7 pg (28.0-36.0); MEAN PLATELET VOLUME 13.2 fl; PLATELET COUNT 101 Th/cmm (150-400); RED BLOOD COUNT 3.04 Mil/cmm (3.80-5.20); RED CELL DISTRIBUTION WIDTH 16.2 % (11.5-20.0); WHITE BLOOD COUNT 11.1 Th/cmm (4.8-10.8)
[2017-10-19 21:17] LABS: ALB/GLOB RATIO 0.8 (1.0-1.8); ALBUMIN 2.7 gm/dL (3.7-5.3); ALKALINE PHOSPHATASE 85 U/L (34-104); ANION GAP 13.4 (7.0-16.0); BILIRUBIN,TOTAL 0.4 mg/dL (0.3-1.0); BUN - UREA NITROGEN 57 mg/dL (7-25); CALCIUM SERUM 8.9 mg/dL (8.6-10.3); CARBON DIOXIDE 20.9 mEq/L (21.0-31.0); CHLORIDE 121 mEq/L (98-107); CREATININE - SERUM 1.8 mg/dL (0.6-1.2); GLUCOSE 350 mg/dL (70-105); POTASSIUM SERUM 4.3 mEq/L (3.5-5.1); SGOT 24 U/L (13-39); SGPT/ALT 10 U/L (7-52); TOTAL PROTEIN,SERUM 5.9 gm/dL (6.0-8.3)
[2017-10-19 21:18] LABS: SODIUM SERUM 151 mEq/L (136-145)
[2017-10-19] MEDS ORDERED: Fleet Enema 135 mL RC PRN (21:30)
[2017-10-19] MEDS ORDERED: Magnesium Hydroxide (MOM) 30 mL UDC GT PRN (21:30)
[2017-10-19 22:01] LABS: BAND NEUTROPHILE 6 % (0-10); BASOPHIL 0 % (0-3); EOSINOPHIL 2 % (0-5); LYMPHOCYTE 14 % (20-50); MONOCYTE 3 % (2-10); NEUTROPHILS 75 % (40-80); PLATELET ESTIMATE ADEQUATE (NORMAL); PLATELET MORPHOLOGY NORMAL (NORMAL); TOTAL CELLS COUNTED 100
[2017-10-19] MEDS: Sodium Chloride 0.45% 1,000 ML IV SCH (22:20)
[2017-10-19] MEDS: Levofloxacin 500mg/100mL 500 MG/100 ML BAG IV SCH (22:22)
[2017-10-20 02:21] VITALS: BP 135/53
[2017-10-20 05:24] LABS: URINE MICROSCOPIC INDICATED? YES; URINE SOURCE CATH
[2017-10-20] MEDS: Sodium Chloride 0.45% 1,000 ML IV SCH ×2 (05:51→16:15)
[2017-10-20 06:23] LABS: URINE BILIRUBIN NEGATIVE (NEGATIVE); URINE BLOOD LARGE (NEGATIVE); URINE CLARITY HAZY (CLEAR); URINE COLOR YELLOW; URINE GLUCOSE (UA) >=1000 mg/dL (NEGATIVE); URINE KETONE NEGATIVE (NEGATIVE); URINE LEUKOCYTE ESTERASE SMALL (NEGATIVE); URINE NITRATE NEGATIVE (NEGATIVE); URINE PROTEIN 100 mg/dL (NEGATIVE); URINE UROBILINOGEN 0.2 E.U./dL (0.2 - 1.0)
[2017-10-20 06:24] LABS: URINE BACTERIA MODERATE /hpf (NONE SEEN); URINE EPITHELIAL CELLS MODERATE /lpf (FEW); URINE WBC 50-100 /hpf (0-5)
[2017-10-20] MEDS: INSULIN ASPART SLIDING SCALE 100 UNITS/ML UNIT SUBQ SCH ×4 (07:22→21:21)
--- NOTE | 2017-10-20 08:55 | Diagnostic Imaging Report ---
Portable chest x-ray HISTORY: Pneumonia Compared with the prior exam of September 15, 2017, there is a poor inspiration. Heart size difficult to assess. Atherosclerotic calcification seen in the aorta. Allowing for the poor inspiration, no acute focal pulmonary processes are seen. The left-sided vascular catheter tip is seen with the tip slightly curled within the superior vena cava near the junction with the left brachiocephalic vein. IMPRESSION: 1. Allowing for poor inspiration, no acute focal pulmonary processes 2. Vascular catheter placement as noted above
[2017-10-20] MEDS ORDERED: Non-Formulary Item 1 EA (Cran/Vitc/Mannose/Fos/Bromeln [Uti-Stat Liquid] 30 ML) GT SCH (09:00)
[2017-10-20] MEDS: Insulin Detemir 100 units/mL 10mL Vial SUBQ SCH ×2 (09:51→21:21)
[2017-10-20] MEDS: Multivitamin w/ Minerals Tab PO SCH (09:55)
[2017-10-20] MEDS: Ascorbic Acid 500 mg/5 mL UDC GT SCH (09:56)
--- NOTE | 2017-10-20 10:10 | Consultation ---
DATE OF CONSULTATION: 10/19/2017 REFERRING PHYSICIAN: Griselda Castaneda M.D. REASON FOR CONSULTATION: UTI and C. diff colitis. HISTORY OF PRESENT ILLNESS: The patient is a 71-year-old female with a past medical history of bilateral BKA, diabetes mellitus type 2, blindness, NG tube placement for dysphagia, bilateral elbow and knee amputation, hypertension, dysphagia, COPD, dementia, neurogenic bladder, osteomyelitis. She was taken to [facility] [place] ER for high glucose and tachypnea. The patient was also tachycardia. Norvasc and hydralazine was given. She developed tachypnea. So 911 was called and brought to the ER for further evaluation and management. On initial evaluation, her systolic blood pressure was 60s and respiration was high 30s. Sepsis workup was performed and urine culture grew Proteus mirabilis and a stool for C. diff came positive. Her WBC count was 20,600. ALLERGIES: The patient documented allergy to PENICILLIN. However, the patient has taken Zosyn in August 2017 as mentioned in the ER note from [place]. Levaquin was started and ID consult was called for further antibiotic management. PAST MEDICAL HISTORY: Include diabetes mellitus type 2, atherosclerosis of aorta, persistent vegetative status. The patient has had G-tube placement, history of bilateral above the knee amputation, hypertension, dysphagia, COPD, dementia, neurogenic bladder, and osteomyelitis. MEDICATIONS: As per medication reconciliation sheet, antibiotic chicas, the patient is on Levaquin. SOCIAL HISTORY: The patient is single and never . The patient lives at nursing facility. No history of smoking, alcohol or drug use. REVIEW OF SYSTEMS: Unable to give any history, but the patient has ____ diarrhea. PHYSICAL EXAMINATION: VITAL SIGNS: Current vital signs shows temperature is 97.8, pulse 87, respirations 22, blood pressure 114/69. GENERAL: The patient is comfortable lying in the bed, in no acute distress. HEENT: Head is normocephalic, atraumatic. Oral cavity moist, pink tongue. Eyes: Pallor is present, no icterus. Pupils PERRLA, EOMI. NECK: Supple, no JVD, no carotid bruit. Trachea in midline. CHEST: Bilateral breath sounds. No crackles or wheezing. HEART: S1, S2 within normal limits. Regular rhythm. No murmur, no gallop. ABDOMEN: Soft, nontender, nondistended. Bowel sounds present. EXTREMITIES: No cyanosis, no clubbing. Bilateral AKA. LABORATORY DATA: Lab chicas current labs shows WBC 11,100, hemoglobin 9, hematocrit 27.5, platelets are 101,000, neutrophil is 75%. Sodium is 151, potassium 4.3, chloride 121, bicarbonate is 20.9, BUN is 57, creatinine 1.8, glucose is 350. ____and a stool for Clostridium difficile colitis. Urine culture from [place] grew Proteus mirabilis sensitive to quinolones and the medications. Stool shows Clostridium difficile came positive. IMPRESSION: 1. Clostridium difficile colitis. 2. Urinary tract infection with Proteus mirabilis. We will continue Levaquin and add Flagyl. JOB# [id number]
[2017-10-20] MEDS ORDERED: Probiotic Screen MC PRN (15:40)
[2017-10-20 16:23] LABS: A1C % 8.5 % (4.0-6.0)
[2017-10-20] MEDS: Acetaminophen 500 MG TAB PO PRN (16:48)
[2017-10-20] MEDS: CALAMINE TP SCH (16:51)
[2017-10-20] MEDS: Vitamin A/Vitamin D 5 gm Packet TP SCH (16:51)
[2017-10-20] MEDS: Levofloxacin 500mg/100mL 500 MG/100 ML BAG IV SCH (20:08)
[2017-10-21] MEDS: Sodium Chloride 0.45% 1,000 ML IV SCH ×2 (02:42→12:28)
[2017-10-21] MEDS: INSULIN ASPART SLIDING SCALE 100 UNITS/ML UNIT SUBQ SCH ×4 (07:08→22:39)
[2017-10-21 07:48] LABS: ANION GAP 15.9 (7.0-16.0); BUN - UREA NITROGEN 40 mg/dL (7-25); CARBON DIOXIDE 21.5 mEq/L (21.0-31.0); CHLORIDE 117 mEq/L (98-107); CREATININE - SERUM 1.5 mg/dL (0.6-1.2); GLUCOSE 281 mg/dL (70-105); POTASSIUM SERUM 3.4 mEq/L (3.5-5.1); SODIUM SERUM 151 mEq/L (136-145)
[2017-10-21 08:04] LABS: % BASOPHILS 0.6 % (0.0-2.0); % EOSINOPHILS 0.5 % (0.0-5.0); % LYMPHOCYTES 17.4 % (20.0-50.0); % MONOCYTES 7.2 % (2.0-10.0); % NEUTROPHILS 74.3 % (40.0-80.0); BASOPHILE ABSOLUTE 0.1 Th/cumm (0-0.2); HEMATOCRIT 25.1 % (41.0-60); HEMOGLOBIN 8.2 gm/dL (12-16); LYMPHOCYTE ABSOLUTE 1.6 Th/cmm (1.5-3.0); MEAN CELL VOLUME 90.8 fl (81-100); MEAN CORPUSCULAR HEMOGLOBIN 29.6 pg (27.0-31.0); MEAN CORPUSCULAR HGB CONC 32.6 pg (28.0-36.0); MEAN PLATELET VOLUME 11.7 fl; MONOCYTE ABSOLUTE 0.6 Th/cmm (0.3-1.0); NEUTROPHILE ABSOLUTE 6.7 Th/cmm (1.8-8.0); RED BLOOD COUNT 2.77 Mil/cmm (3.80-5.20); RED CELL DISTRIBUTION WIDTH 15.7 % (11.5-20.0)
[2017-10-21 08:06] LABS: PLATELET COUNT 124 Th/cmm (150-400)
[2017-10-21] MEDS: Multivitamin w/ Minerals Tab PO SCH (09:19)
[2017-10-21] MEDS: Lactobacillus Rhamnosus GG 15 Billion CFU CAP.SPRINK GT SCH (09:19)
[2017-10-21] MEDS: Insulin Detemir 100 units/mL 10mL Vial SUBQ SCH ×2 (09:21→22:37)
[2017-10-21] MEDS: CALAMINE TP SCH (09:21)
[2017-10-21] MEDS: Ascorbic Acid 500 mg/5 mL UDC GT SCH (09:21)
[2017-10-21] MEDS: Vitamin A/Vitamin D 5 gm Packet TP SCH (09:26)
--- NOTE | 2017-10-21 13:11 | Infectious Disease Prog Note ---
Infectious Disease Subjective - Review of Systems Service Date: 10/21/17 Subjective: Developed fever. up to 101 degree F. Infectious Disease Objective - Results Result Diagrams: 10/21/17 07:40 10/21/17 06:36 Recent Labs: Laboratory Last Values WBC 9.0 Th/cmm (4.8-10.8) 10/21/17 07:40 RBC 2.77 Mil/cmm (3.80-5.20) L 10/21/17 07:40 Hgb 8.2 gm/dL (12-16) L 10/21/17 07:40 Hct 25.1 % (41.0-60) L 10/21/17 07:40 MCV 90.8 fl (81-100) 10/21/17 07:40 MCH 29.6 pg (27.0-31.0) 10/21/17 07:40 MCHC Differential 32.6 pg (28.0-36.0) 10/21/17 07:40 RDW 15.7 % (11.5-20.0) 10/21/17 07:40 Plt Count 124 Th/cmm (150-400) L D 10/21/17 07:40 MPV 11.7 fl 10/21/17 07:40 Neutrophils % 74.3 % (40.0-80.0) 10/21/17 07:40 Band Neutrophils % 6 % (0-10) 10/19/17 20:32 Lymphocytes % 17.4 % (20.0-50.0) L 10/21/17 07:40 Monocytes % 7.2 % (2.0-10.0) 10/21/17 07:40 Eosinophils % 0.5 % (0.0-5.0) 10/21/17 07:40 Basophils % 0.6 % (0.0-2.0) 10/21/17 07:40 Neutrophils (Manual) 75 % (40-80) 10/19/17 20:32 Lymphocytes 14 % (20-50) L 10/19/17 20:32 Monocytes 3 % (2-10) 10/19/17 20:32 Eosinophils 2 % (0-5) 10/19/17 20:32 Basophils 0 % (0-3) 10/19/17 20:32 Platelet Estimate ADEQUATE (NORMAL) 10/19/17 20:32 Platelet Morphology NORMAL (NORMAL) 10/19/17 20:32 RBC Morph Micro Appear NORMAL (NORMAL) 10/19/17 20:32 Sodium 151 mEq/L (136-145) H 10/21/17 06:36 Potassium 3.4 mEq/L (3.5-5.1) L 10/21/17 06:36 Chloride 117 mEq/L (98-107) H 10/21/17 06:36 Carbon Dioxide 21.5 mEq/L (21.0-31.0) 10/21/17 06:36 Anion Gap 15.9 (7.0-16.0) 10/21/17 06:36 BUN 40 mg/dL (7-25) H 10/21/17 06:36 Creatinine 1.5 mg/dL (0.6-1.2) H 10/21/17 06:36 Est GFR ( Amer) TNP 10/21/17 06:36 Est GFR (Non-Af Amer) TNP 10/21/17 06:36 BUN/Creatinine Ratio 26.7 10/21/17 06:36 Glucose 281 mg/dL (70-105) H 10/21/17 06:36 POC Glucose 269 MG/DL (70 - 105) H 10/21/17 11:50 Hemoglobin A1c % 8.5 % (4.0-6.0) H 10/19/17 20:32 Whole Bld Lactic Acid 0.88 mmol/L (0.60-1.99) 10/21/17 07:40 Calcium 9.0 mg/dL (8.6-10.3) 10/21/17 06:36 Total Bilirubin 0.4 mg/dL (0.3-1.0) 10/19/17 20:32 AST 24 U/L (13-39) 10/19/17 20:32 ALT 10 U/L (7-52) 10/19/17 20:32 Alkaline Phosphatase 85 U/L (34-104) 10/19/17 20:32 Total Protein 5.9 gm/dL (6.0-8.3) L 10/19/17 20:32 Albumin 2.7 gm/dL (3.7-5.3) L 10/19/17 20:32 Globulin 3.2 gm/dL 10/19/17 20:32 Albumin/Globulin Ratio 0.8 (1.0-1.8) L 10/19/17 20:32 Urine Source CATH 10/20/17 03:50 Urine Color YELLOW 10/20/17 03:50 Urine Clarity HAZY (CLEAR) 10/20/17 03:50 Urine pH 6.0 (4.6 - 8.0) 10/20/17 03:50 Ur Specific [place] 1.015 (1.005-1.030) 10/20/17 03:50 Urine Protein 100 mg/dL (NEGATIVE) H 10/20/17 03:50 Urine Glucose (UA) >=1000 mg/dL (NEGATIVE) H 10/20/17 03:50 Urine Ketones NEGATIVE mg/dL (NEGATIVE) 10/20/17 03:50 Urine Blood LARGE (NEGATIVE) H 10/20/17 03:50 Urine Nitrate NEGATIVE (NEGATIVE) 10/20/17 03:50 Urine Bilirubin NEGATIVE (NEGATIVE) 10/20/17 03:50 Urine Urobilinogen 0.2 E.U./dL (0.2 - 1.0) 10/20/17 03:50 Ur Leukocyte Esterase SMALL (NEGATIVE) H 10/20/17 03:50 Urine RBC 5-10 /hpf (0-5) H 10/20/17 03:50 Urine WBC 50-100 /hpf (0-5) H 10/20/17 03:50 Ur Epithelial Cells MODERATE /lpf (FEW) 10/20/17 03:50 Urine Bacteria MODERATE /hpf (NONE SEEN) H 10/20/17 03:50 - Physical Exam Vitals and I&O: Vital Signs Temp 101 F 10/21/17 09:00 Pulse 101 10/21/17 09:20 Resp 22 10/21/17 09:00 BP 153/66 10/21/17 09:20 Pulse Ox 97 10/21/17 07:45 Intake & Output 10/20/17 10/21/17 10/21/17 18:59 06:59 18:59 Intake Total 1700 1000 1456.667 Output Total 2650 2000 Balance -950 1000 -543.333 Weight (lbs) 64.41 kg 64.41 kg Intake: Intake, IV Amount 1000 1000 976.667 Sodium Chloride 0.45% 1, 1000 1000 976.667 000 ml @ 100 mls/hr IV . Q10H [facility] Rx#:[id number] Oral 0 Tube Feeding 400 480 Other 300 Output: Urine 2650 2000 Other: # Bowel Movements 0 0 Stool Characteristics Soft Soft Soft Mucoid Mucoid Mucoid Black Black Black Green Green Green Active Medications: Current Medications Acetaminophen (Tylenol Extra Strength) 1,000 mg PO Q4HR PRN PRN Reason: MOD PAIN Stop: 12/18/17 21:29 Last Admin: 10/20/17 16:48 Dose: 1,000 mg Acetaminophen (Tylenol) 650 mg PO Q4HR PRN PRN Reason: MILD PAIN OR TEMP >101F Stop: 12/18/17 21:29 Last Admin: 10/21/17 09:18 Dose: 650 mg Amlodipine Besylate (Norvasc) 5 mg GT DAILY [facility] Stop: 12/19/17 08:59 Last Admin: 10/21/17 09:19 Dose: 5 mg Ascorbic Acid (Vitamin C) 500 mg GT DAILY [facility] Stop: 12/19/17 08:59 Last Admin: 10/21/17 09:21 Dose: Not Given Bisacodyl (Dulcolax 10 Mg Supp) 10 mg RC DAILY PRN PRN Reason: Constipation Stop: 12/18/17 21:29 Calamine (Calamine) 1 appl TP DAILY [facility] Stop: 12/19/17 08:59 Last Admin: 10/21/17 09:21 Dose: 1 appl Hydralazine HCl (Apresoline) 50 mg GT TID [facility] Stop: 12/19/17 08:59 Last Admin: 10/21/17 09:20 Dose: 50 mg Sodium Chloride (Nacl 0.45%) 1,000 mls @ 100 mls/hr IV .Q10H [facility] Stop: 12/18/17 18:56 Last Admin: 10/21/17 12:28 Dose: 100 mls/hr Levofloxacin (Levaquin Pb) 500 mg in 100 mls @ 100 mls/hr IV Q24HR [facility] Stop: 12/18/17 19:59 Last Admin: 10/20/17 20:08 Dose: 100 mls/hr Insulin Aspart (Novolog Insulin Sliding Scale) 0 units SUBQ ACHS [facility]EE[facility] PRN Reason: Protocol Stop: 12/19/17 07:29 Last Admin: 10/21/17 12:25 Dose: 4 units Insulin Detemir (Levemir Insulin) 30 units SUBQ Q12HR [facility] PRN Reason: Protocol Stop: 12/19/17 08:59 Last Admin: 10/21/17 09:21 Dose: 30 units Lactobacillus Rhamnosus (Culturelle 15b) 1 each GT DAILY [facility] Stop: 12/20/17 08:59 Last Admin: 10/21/17 09:19 Dose: 1 each Magnesium Hydroxide (Milk Of Magnesia) 30 ml GT HS PRN PRN Reason: Constipation Stop: 12/18/17 21:29 Memantine (Namenda) 10 mg GT BID [facility] Stop: 12/19/17 08:59 Last Admin: 10/21/17 09:19 Dose: 10 mg Metronidazole (Flagyl) 500 mg PO TID [facility] Stop: 10/26/17 21:01 Last Admin: 10/21/17 09:19 Dose: 500 mg Miscellaneous (Probiotic Screen) 1 ea MC PRN PRN PRN Reason: PROTOCOL Stop: 12/19/17 15:39 Pantoprazole Sodium (Protonix) 40 mg IVP DAILY [facility] Stop: 12/19/17 08:59 Last Admin: 10/21/17 09:18 Dose: 40 mg Senna (Senna) 17.2 mg GT HS [facility] Stop: 12/19/17 20:59 Last Admin: 10/20/17 21:21 Dose: 17.2 mg Sodium Phosphate (Fleet Enema) 135 ml RC Q48H PRN PRN Reason: Constipation Stop: 12/18/17 21:29 Vitamin A (Vitamin A & D) 5 gm TP DAILY [facility] Stop: 12/19/17 08:59 Last Admin: 10/21/17 09:26 Dose: 5 gm Zinc Sulfate (Zinc Sulfate) 220 mg GT DAILY [facility] Stop: 12/19/17 08:59 Last Admin: 10/21/17 09:19 Dose: 220 mg General: no acute distress, well developed, well nourished HEENT: atraumatic, normocephalic, PERRLA, EOMI Neck: supple, no thyromegaly Cardiovascular: S1S2, regular Lungs: clear to auscultation bilaterally, clear to percussion Abdomen: soft, no tender, no distended Extremities: no cyanosis, no clubbing, no edema Neurological: awake, alert, oriented Skin: intact - Procedures Procedures: Procedures Procedure Code Date CHANGE FEEDING DEVICE IN UP INTEST TRACT, CABLE SPLICER APPROACH [id number] 09/13/17 Infectious Disease Assmt/Plan - Problem List Patient Problems: All Active Problems ELEVATED BLOOD GLUCOSE (Acute) - Assessment Assessment: 1. Fever. 2. C diff colitis. 3. UTI. - Plan Plan: Will do fever w/u. Continue levaquin and flagyl. Nutritional Asmnt/Malnutr-PDOC - Dietary Evaluation Malnutrition Findings (Please click <Entered> for more info): Nutritional Asmnt/Malnutrition Start: 10/20/17 17: 24 Text: Status: Complete Freq: Document 10/20/17 17:24 [facility] (Rec: 10/20/17 17:46 [email or web address] Nutritional Asmnt/Malnutrition Patient General Information Nutritional Screening High Risk Consult Diagnosis urosepsis, c diff Pertinent Medical Hx/Surgical Hx bilateral AKA, DM, blindness, NGTube, dysphagia, COPD, HTN, dementia, neurogenic bladder, osteomyelitis, peristent vegetative status, atherosclerosis of aorta Subjective Information Consult received for brade score of 13, BS 350. Pt seen lying in bed at time of visit. Spoke with RN, RN reported pt had residual > 200ml this morning, TF was hold for 2.5 hr. Rechecked, residual 0ml, restarted TF. Adj BMI considering bilateral AKA BMI=26.8, overweight Current Diet Order/ Nutrition Support Diabetisource 40ml/hr continuous, providing 1152kcal , 58g protein Pertinent Medications vitamin C, novolog, levemir, culturelle, levaquin, protonix , vitamin A&D, zinc Pertinent Labs 10/19 Na 151, K 4.3, Cl 121, BUN 57, Cr 1.8, Glucose 350, POC 340, Ca 8.5, Alb 2.7 10/20 POC 275-401 Nutritional Hx/Data Height 1.73 m Height (Calculated Centimeters) 172.7 Current Weight (lbs) 64.41 kg Weight (Calculated Kilograms) 64.4 Weight (Calculated Grams) 03816.1 [place] Body Weight 112 % [place] Body Weight 127 Body Mass Index (BMI) 21.6 Weight Status Overweight GI Symptoms GI Symptoms Diarrhea Last BM no record Difficult in: None Skin Integrity/Comment: intact Estimated Nutritional Goals BEE in Kcals: Adj wt of IBW Calories/Kcals/Kg 25-30 Kcals Calculated 8484-2471 Protein: Adj wt of IBW Protein g/k Protein Calculated 54 Fluid: ml 1350-1620ml (1ml/kcal) Nutritional Problem 1. Problem Problem altered nutrition related lab values Etiology hx of dm Signs/Symptoms: Glucose 350, POC 275-401 Malnutrition Alert Protein-Calorie Malnutrition N/A Is there a minimum of two criteria No selected? Query Text:Check all the applicable criteria. A minimum of two criteria are recommended for diagnosis of either severe or non-severe malnutrition. Intervention/Recommendation Comments 1. Continue with current TF regimen considering high residual this morning. Check residual q4hr. Hold TF 1hr if residual >200ml. 2. adjust insulin for optimal glycemic control per MD order. 3. Monitor TF rate, tolerance, wt weekly, skin integrity and labs 4. F/U as high risk in 2-3 days, 2/2-2/3 Expected Outcomes/Goals Expected Outcomes/Goals 1. Pt to meet at least 75% of nutritional needs via nutrition support with tolerence. 2. Wt stability, skin to remain intact, labs to improve
--- NOTE | 2017-10-21 14:40 | Diagnostic Imaging Report ---
CHEST X-RAY: AP view INDICATION: Pneumonia COMPARISON: 10/20/2017 FINDINGS: Left-sided subclavian catheter is stable. There is mild elevation of the right hemidiaphragm increased right basal lung markings. Chronic changes are noted. Borderline prominent heart is noted with atherosclerosis. IMPRESSION: Mild increased right basal lung markings favoring atelectatic changes. Faint infiltrate is less likely.
[2017-10-21] MEDS: Levofloxacin 500mg/100mL 500 MG/100 ML BAG IV SCH (22:10)
[2017-10-22] MEDS: Sodium Chloride 0.45% 1,000 ML IV SCH ×2 (04:45→23:59)
[2017-10-22] MEDS: INSULIN ASPART SLIDING SCALE 100 UNITS/ML UNIT SUBQ SCH ×4 (06:43→20:55)
[2017-10-22] MEDS: Lactobacillus Rhamnosus GG 15 Billion CFU CAP.SPRINK GT SCH (09:45)
[2017-10-22] MEDS: Multivitamin w/ Minerals Tab PO SCH (09:45)
[2017-10-22] MEDS: Ascorbic Acid 500 mg/5 mL UDC GT SCH (09:47)
[2017-10-22] MEDS: CALAMINE TP SCH (09:47)
[2017-10-22] MEDS: Insulin Detemir 100 units/mL 10mL Vial SUBQ SCH ×2 (09:49→20:56)
--- NOTE | 2017-10-22 11:24 | Diagnostic Imaging Report ---
Renal ultrasound HISTORY: Hydronephrosis, pyelonephritis. COMPARISON: Renal ultrasound on 09/14/2017 Technique: Sonography of the kidneys and urinary bladder was performed in multiple planes. FINDINGS: The right kidney measures 10.9 x 5.1 cm. The left kidney measures 10.3 x 5 cm. No evidence of focal lesions or hydronephrosis. Assessment of the left kidney was suboptimal due to bowel gas. The urinary bladder is underdistended containing a Rai catheter, limiting its evaluation. IMPRESSION: No evidence of hydronephrosis.
[2017-10-22] MEDS: Vitamin A/Vitamin D 5 gm Packet TP SCH (12:07)
--- NOTE | 2017-10-22 14:55 | History and Physical ---
History of Present Illness - HPI Chief Complaint: hyperglycemia and tachypnea HPI: This is a 71 year old female resident of [facility] brought to [facility] due to tachypnea and hyperglycemia. Patient was initially at [facility] and sepsis screening was done and her urine culture grew proteus mirabilis and her stool came back positive for cdiff. For Further management patient is now admitted to the telemetry unit. Vital Signs: Last Vital Signs Temp 98.1 F 10/22/17 00:00 Pulse 94 10/22/17 09:46 Resp 18 10/22/17 04:25 BP 154/66 10/22/17 09:46 Pulse Ox 97 10/22/17 04:25 Past Medical History Other History: dm2 athersclerotic heart disease pvs htn aka dysphagia manager endoscopy ddementia neurogenic bladder osteomyelitis - Past Surgical History Past Surgical History: Other (aka) Family Medical History - Family Member Mother History Unknown: Yes (NONCONTRIBUTORY) Social History Smoke: No Alcohol: None Drugs: None Lives: [facility] - Medications Home Medications: Home Medication Medication Instructions Recorded Type Sulfamethoxazole/TMP [Bactrim Ds] 1 tab GT BID 09/06/17 History Calfzime Skin Protectant 1 unit TP DAILY 09/13/17 History Cran/Vitc/Mannose/Fos/Bromeln 30 ml GT DAILY 09/13/17 History [Uti-Stat 887 ml] Multivitamin w/ Minerals 5 ml GT DAILY 09/13/17 History [Theragran M] Acetaminophen [Tylenol Extra 1,000 mg PO Q4HR PRN tab 09/17/17 Rx Strength] Acetaminophen [Tylenol] 650 mg PO Q4HR PRN tab 09/17/17 Rx Ascorbic Acid [Vitamin C] 500 mg GT DAILY udc 09/17/17 Rx Bisacodyl [Dulcolax 10 Mg Supp] 10 mg RC DAILY PRN sup 09/17/17 Rx Fleet Enema 135 ml RC Q48H PRN btl 09/17/17 Rx Hydralazine [Apresoline*] 50 mg GT TID tab 09/17/17 Rx Insulin Aspart Sliding Scale See Protocol SUBQ ACHS unit 09/17/17 Rx [NovoLOG INSULIN SLIDING SCALE] Insulin Detemir [Levemir Insulin] 30 units SUBQ Q12HR vial 09/17/17 Rx Magnesium Hydroxide [Milk of 30 ml GT HS PRN udc 09/17/17 Rx Magnesia] Memantine [Namenda] 10 mg GT BID tab 09/17/17 Rx Multivitamin w/ Minerals 1 tab PO DAILY tab 09/17/17 Rx [Theragran M] Pantoprazole [Protonix] 40 mg IVP DAILY vial 09/17/17 Rx Sennosides A and B [Senna] 17.2 mg GT HS tab 09/17/17 Rx Vitamin A/Vitamin D [Vitamin A & D] 5 gm TP DAILY packet 09/17/17 Rx Zinc Sulfate 220 mg GT DAILY cap 09/17/17 Rx amLODIPine Besylate [Norvasc] 5 mg GT DAILY tab 09/17/17 Rx - Allergies Allergies/Adverse Reactions: Allergies Allergy/AdvReac Type Severity Reaction Status Date / Time Penicillins [PCN] Allergy Verified 09/06/17 21:11 Review of Systems - Review of Systems Constitutional: Report: Weakness Eyes: Report: No Significant ENT: Report: No Significant Respiratory: Report: Cough, Other (rales) Cardiovascular: Report: No Significant Gastrointestinal: Report: No Significant Genitourinary: Report: No Significant Neurological: Report: Weakness Physical Exam - Physical Exam HEENT: Report: Ears Nose Throat within normal limits Neck: Report: Within normal limits Cardiovascular Systems: Report: +s1/s2 noted Respiratory: Report: Crackles, Rhonchi Abdomen: Report: Non-tender to palpation Skin: Report: Warm, Dry Neuro/Psych: Report: Weakness or sensory loss noted. - Lab Results All Lab Results last 24 hours: Laboratory Results - last 24 hr 10/21/17 10/21/17 10/22/17 17:40 22:31 06:14 POC Glucose 165 H 238 H 256 H 10/22/17 11:59 POC Glucose 287 H Microbiology 10/20/17 04:30 - Preliminary Blood NO GROWTH AFTER 48 HOURS 10/20/17 04:40 - Preliminary Blood NO GROWTH AFTER 48 HOURS 10/20/17 03:50 - Final Nares NO MRSA ISOLATED 10/20/17 03:50 Urine Culture - Preliminary Urine,Catheterized - Assessment Assessment: c diff colitis acute uti with proteus mirabilis congestion hyperglycemia copd dementia neurogenic bladder dysphagia htn - Plan Plan: chest xray today follow up labs in am inhalation treatments RT to suction patient decrease ivf aspiration precautions continue current orders
[2017-10-22] MEDS: Levofloxacin 500mg/100mL 500 MG/100 ML BAG IV SCH (20:50)
[2017-10-23] MEDS: Acetaminophen 500 MG TAB PO PRN (00:45)
[2017-10-23] MEDS: INSULIN ASPART SLIDING SCALE 100 UNITS/ML UNIT SUBQ SCH ×4 (06:47→20:42)
[2017-10-23 08:02] LABS: % BASOPHILS 0.4 % (0.0-2.0); % EOSINOPHILS 0.5 % (0.0-5.0); % LYMPHOCYTES 16.8 % (20.0-50.0); % MONOCYTES 5.9 % (2.0-10.0); % NEUTROPHILS 76.4 % (40.0-80.0); EOSINOPHILE ABSOLUTE 0.1 Th/cmm (0.1-0.4); HEMATOCRIT 24.8 % (41.0-60); HEMOGLOBIN 8.2 gm/dL (12-16); LYMPHOCYTE ABSOLUTE 1.7 Th/cmm (1.5-3.0); MEAN CELL VOLUME 89.8 fl (81-100); MEAN CORPUSCULAR HEMOGLOBIN 29.7 pg (27.0-31.0); MEAN CORPUSCULAR HGB CONC 33.1 pg (28.0-36.0); MEAN PLATELET VOLUME 11.1 fl; MONOCYTE ABSOLUTE 0.6 Th/cmm (0.3-1.0); NEUTROPHILE ABSOLUTE 7.8 Th/cmm (1.8-8.0); RED BLOOD COUNT 2.76 Mil/cmm (3.80-5.20); RED CELL DISTRIBUTION WIDTH 15.3 % (11.5-20.0); WHITE BLOOD COUNT 10.2 Th/cmm (4.8-10.8)
[2017-10-23 08:17] LABS: PLATELET COUNT 198 Th/cmm (150-400)
[2017-10-23 08:49] LABS: ANION GAP 13.1 (7.0-16.0); BUN - UREA NITROGEN 34 mg/dL (7-25); CALCIUM SERUM 7.6 mg/dL (8.6-10.3); CHLORIDE 112 mEq/L (98-107); CREATININE - SERUM 1.4 mg/dL (0.6-1.2); GLUCOSE 204 mg/dL (70-105); POTASSIUM SERUM 3.1 mEq/L (3.5-5.1); SODIUM SERUM 144 mEq/L (136-145)
--- NOTE | 2017-10-23 08:53 | Diagnostic Imaging Report ---
Exam: Portable chest x-ray. HISTORY::. Findings: Portable examination of the chest at 1511 hours reviewed compatible prior study 10/21/2017. The study demonstrates unchanged appearance of left subclavian catheter terminates in superior vena cava. Mediastinal structures midline the heart is not enlarged the aortic is calcified. There is evidence of COPD changes. Left lower lobe infiltrate and small effusion present. Bony thorax intact. COPD changes are noted. IMPRESSION: Left basal peribronchial infiltrate, small effusion COPD changes. Follow-up examination is recommended
[2017-10-23] MEDS: Lactobacillus Rhamnosus GG 15 Billion CFU CAP.SPRINK GT SCH (09:14)
[2017-10-23] MEDS: Multivitamin w/ Minerals Tab PO SCH (09:14)
[2017-10-23] MEDS: Vitamin A/Vitamin D 5 gm Packet TP SCH (09:18)
[2017-10-23] MEDS: CALAMINE TP SCH (09:18)
[2017-10-23] MEDS: Insulin Detemir 100 units/mL 10mL Vial SUBQ SCH ×2 (09:20→20:43)
[2017-10-23] MEDS: Ascorbic Acid 500 mg/5 mL UDC GT SCH (12:59)
--- NOTE | 2017-10-23 17:41 | Infectious Disease Prog Note ---
Infectious Disease Subjective - Review of Systems Service Date: 10/23/17 Subjective: Developed fever. up to 101 degree F. Infectious Disease Objective - Results Result Diagrams: 10/23/17 07:50 10/23/17 07:50 Recent Labs: Laboratory Last Values WBC 10.2 Th/cmm (4.8-10.8) 10/23/17 07:50 RBC 2.76 Mil/cmm (3.80-5.20) L 10/23/17 07:50 Hgb 8.2 gm/dL (12-16) L 10/23/17 07:50 Hct 24.8 % (41.0-60) L 10/23/17 07:50 MCV 89.8 fl (81-100) 10/23/17 07:50 MCH 29.7 pg (27.0-31.0) 10/23/17 07:50 MCHC Differential 33.1 pg (28.0-36.0) 10/23/17 07:50 RDW 15.3 % (11.5-20.0) 10/23/17 07:50 Plt Count 198 Th/cmm (150-400) D 10/23/17 07:50 MPV 11.1 fl 10/23/17 07:50 Neutrophils % 76.4 % (40.0-80.0) 10/23/17 07:50 Band Neutrophils % 6 % (0-10) 10/19/17 20:32 Lymphocytes % 16.8 % (20.0-50.0) L 10/23/17 07:50 Monocytes % 5.9 % (2.0-10.0) 10/23/17 07:50 Eosinophils % 0.5 % (0.0-5.0) 10/23/17 07:50 Basophils % 0.4 % (0.0-2.0) 10/23/17 07:50 Neutrophils (Manual) 75 % (40-80) 10/19/17 20:32 Lymphocytes 14 % (20-50) L 10/19/17 20:32 Monocytes 3 % (2-10) 10/19/17 20:32 Eosinophils 2 % (0-5) 10/19/17 20:32 Basophils 0 % (0-3) 10/19/17 20:32 Platelet Estimate ADEQUATE (NORMAL) 10/19/17 20:32 Platelet Morphology NORMAL (NORMAL) 10/19/17 20:32 RBC Morph Micro Appear NORMAL (NORMAL) 10/19/17 20:32 Sodium 144 mEq/L (136-145) 10/23/17 07:50 Potassium 3.1 mEq/L (3.5-5.1) L 10/23/17 07:50 Chloride 112 mEq/L (98-107) H 10/23/17 07:50 Carbon Dioxide 22.0 mEq/L (21.0-31.0) 10/23/17 07:50 Anion Gap 13.1 (7.0-16.0) 10/23/17 07:50 BUN 34 mg/dL (7-25) H 10/23/17 07:50 Creatinine 1.4 mg/dL (0.6-1.2) H 10/23/17 07:50 Est GFR ( Amer) TNP 10/23/17 07:50 Est GFR (Non-Af Amer) TNP 10/23/17 07:50 BUN/Creatinine Ratio 24.3 10/23/17 07:50 Glucose 204 mg/dL (70-105) H 10/23/17 07:50 POC Glucose 142 MG/DL (70 - 105) H 10/23/17 16:38 Hemoglobin A1c % 8.5 % (4.0-6.0) H 10/19/17 20:32 Whole Bld Lactic Acid 0.88 mmol/L (0.60-1.99) 10/21/17 07:40 Calcium 7.6 mg/dL (8.6-10.3) L 10/23/17 07:50 Total Bilirubin 0.4 mg/dL (0.3-1.0) 10/19/17 20:32 AST 24 U/L (13-39) 10/19/17 20:32 ALT 10 U/L (7-52) 10/19/17 20:32 Alkaline Phosphatase 85 U/L (34-104) 10/19/17 20:32 Total Protein 5.9 gm/dL (6.0-8.3) L 10/19/17 20:32 Albumin 2.7 gm/dL (3.7-5.3) L 10/19/17 20:32 Globulin 3.2 gm/dL 10/19/17 20:32 Albumin/Globulin Ratio 0.8 (1.0-1.8) L 10/19/17 20:32 Urine Source CATH 10/20/17 03:50 Urine Color YELLOW 10/20/17 03:50 Urine Clarity HAZY (CLEAR) 10/20/17 03:50 Urine pH 6.0 (4.6 - 8.0) 10/20/17 03:50 Ur Specific [place] 1.015 (1.005-1.030) 10/20/17 03:50 Urine Protein 100 mg/dL (NEGATIVE) H 10/20/17 03:50 Urine Glucose (UA) >=1000 mg/dL (NEGATIVE) H 10/20/17 03:50 Urine Ketones NEGATIVE mg/dL (NEGATIVE) 10/20/17 03:50 Urine Blood LARGE (NEGATIVE) H 10/20/17 03:50 Urine Nitrate NEGATIVE (NEGATIVE) 10/20/17 03:50 Urine Bilirubin NEGATIVE (NEGATIVE) 10/20/17 03:50 Urine Urobilinogen 0.2 E.U./dL (0.2 - 1.0) 10/20/17 03:50 Ur Leukocyte Esterase SMALL (NEGATIVE) H 10/20/17 03:50 Urine RBC 5-10 /hpf (0-5) H 10/20/17 03:50 Urine WBC 50-100 /hpf (0-5) H 10/20/17 03:50 Ur Epithelial Cells MODERATE /lpf (FEW) 10/20/17 03:50 Urine Bacteria MODERATE /hpf (NONE SEEN) H 10/20/17 03:50 - Physical Exam Vitals and I&O: Vital Signs Temp 99.2 F 10/23/17 08:00 Pulse 103 10/23/17 15:10 Resp 40 10/23/17 08:00 BP 155/72 10/23/17 15:10 Pulse Ox 96 10/23/17 08:00 Intake & Output 10/22/17 10/23/17 10/23/17 18:59 06:59 18:59 Intake Total 310 1260 Output Total 1400 Balance 310 -140 Weight (lbs) 61.689 kg 61.689 kg Intake: Intake, IV Amount 310 100 Levofloxacin 500mg/100mL 100 500 mg In 100 ml @ 100 mls/hr IV Q24HR [facility] Rx#: [id number] Sodium Chloride 0.45% 1, 310 000 ml @ 100 mls/hr IV . Q10H [facility] Rx#:[id number] Tube Feeding 960 Other 200 Output: Urine 1400 Other: # Bowel Movements 1 Stool Characteristics Soft Soft Mucoid Mucoid Black Black Green Green Active Medications: Current Medications Acetaminophen (Tylenol Extra Strength) 1,000 mg PO Q4HR PRN PRN Reason: MOD PAIN Stop: 12/18/17 21:29 Last Admin: 10/23/17 00:45 Dose: 1,000 mg Acetaminophen (Tylenol) 650 mg PO Q4HR PRN PRN Reason: MILD PAIN OR TEMP >101F Stop: 12/18/17 21:29 Last Admin: 10/23/17 17:38 Dose: 650 mg Amlodipine Besylate (Norvasc) 5 mg GT DAILY [facility] Stop: 12/19/17 08:59 Last Admin: 10/23/17 09:14 Dose: 5 mg Ascorbic Acid (Vitamin C) 500 mg GT DAILY [facility] Stop: 12/19/17 08:59 Last Admin: 10/23/17 12:59 Dose: Not Given Bisacodyl (Dulcolax 10 Mg Supp) 10 mg RC DAILY PRN PRN Reason: Constipation Stop: 12/18/17 21:29 Calamine (Calamine) 1 appl TP DAILY [facility] Stop: 12/19/17 08:59 Last Admin: 10/23/17 09:18 Dose: 1 appl Hydralazine HCl (Apresoline) 50 mg GT TID NEE[facility] Stop: 12/19/17 08:59 Last Admin: 10/23/17 15:10 Dose: 50 mg Levofloxacin (Levaquin Pb) 500 mg in 100 mls @ 100 mls/hr IV Q24HR [facility] Stop: 12/18/17 19:59 Last Infusion: 10/22/17 21:50 Dose: Infused Sodium Chloride (Nacl 0.45%) 1,000 mls @ 50 mls/hr IV .Q20H [facility] Stop: 12/21/17 19:02 Last Admin: 10/22/17 23:59 Dose: 50 mls/hr Insulin Aspart (Novolog Insulin Sliding Scale) 0 units SUBQ ACHS NEENA PRN Reason: Protocol Stop: 12/19/17 07:29 Last Admin: 10/23/17 13:01 Dose: 2 units Insulin Detemir (Levemir Insulin) 30 units SUBQ Q12HR NEENA PRN Reason: Protocol Stop: 12/19/17 08:59 Last Admin: 10/23/17 09:20 Dose: 30 units Lactobacillus Rhamnosus (Culturelle 15b) 1 each GT DAILY [facility]EE[facility] Stop: 12/20/17 08:59 Last Admin: 10/23/17 09:14 Dose: 1 each Magnesium Hydroxide (Milk Of Magnesia) 30 ml GT HS PRN PRN Reason: Constipation Stop: 12/18/17 21:29 Memantine (Namenda) 10 mg GT BID NEENA Stop: 12/19/17 08:59 Last Admin: 10/23/17 17:29 Dose: 10 mg Metronidazole (Flagyl) 500 mg PO TID [facility]EENA Stop: 10/26/17 21:01 Last Admin: 10/23/17 15:10 Dose: 500 mg Miscellaneous (Probiotic Screen) 1 ea MC PRN PRN PRN Reason: PROTOCOL Stop: 12/19/17 15:39 Pantoprazole Sodium (Protonix) 40 mg IVP DAILY NEENA Stop: 12/19/17 08:59 Last Admin: 10/23/17 09:13 Dose: 40 mg Senna (Senna) 17.2 mg GT HS [facility]EENA Stop: 12/19/17 20:59 Last Admin: 10/22/17 20:55 Dose: 17.2 mg Sodium Phosphate (Fleet Enema) 135 ml RC Q48H PRN PRN Reason: Constipation Stop: 12/18/17 21:29 Vitamin A (Vitamin A & D) 5 gm TP DAILY [facility]EE[facility] Stop: 12/19/17 08:59 Last Admin: 10/23/17 09:18 Dose: 5 gm Zinc Sulfate (Zinc Sulfate) 220 mg GT DAILY [facility] Stop: 12/19/17 08:59 Last Admin: 10/23/17 09:14 Dose: 220 mg General: no acute distress, well developed, well nourished HEENT: atraumatic, normocephalic, PERRLA Neck: supple, no thyromegaly Cardiovascular: S1S2, regular Lungs: clear to auscultation bilaterally, clear to percussion Abdomen: soft, no tender, no distended, no rebound Extremities: no cyanosis, no clubbing, no edema Neurological: awake, alert, oriented Skin: intact - Procedures Procedures: Procedures Procedure Code Date CHANGE FEEDING DEVICE IN UP INTEST TRACT, SENIOR QA ENGINEER APPROACH [id number] 09/13/17 Infectious Disease Assmt/Plan - Problem List Patient Problems: All Active Problems ELEVATED BLOOD GLUCOSE (Acute) - Assessment Assessment: 1. Fever. 2. C diff colitis. 3. UTI. - Plan Plan: Will do fever w/u. Continue levaquin and flagyl. Nutritional Asmnt/Malnutr-PDOC - Dietary Evaluation Malnutrition Findings (Please click <Entered> for more info): Nutritional Asmnt/Malnutrition Start: 10/20/17 17: 24 Text: Status: Complete Freq: Document 10/20/17 17:24 JOURDAN (Rec: 10/20/17 17:46 [facility] Nutritional Asmnt/Malnutrition Patient General Information Nutritional Screening High Risk Consult Diagnosis urosepsis, c diff Pertinent Medical Hx/Surgical Hx bilateral AKA, DM, blindness, NGTube, dysphagia, COPD, HTN, dementia, neurogenic bladder, osteomyelitis, peristent vegetative status, atherosclerosis of aorta Subjective Information Consult received for brade score of 13, BS 350. Pt seen lying in bed at time of visit. Spoke with RN, RN reported pt had residual > 200ml this morning, TF was hold for 2.5 hr. Rechecked, residual 0ml, restarted TF. Adj BMI considering bilateral AKA BMI=26.8, overweight Current Diet Order/ Nutrition Support Diabetisource 40ml/hr continuous, providing 1152kcal , 58g protein Pertinent Medications vitamin C, novolog, levemir, culturelle, levaquin, protonix , vitamin A&D, zinc Pertinent Labs 10/19 Na 151, K 4.3, Cl 121, BUN 57, Cr 1.8, Glucose 350, POC 340, Ca 8.5, Alb 2.7 10/20 POC 275-401 Nutritional Hx/Data Height 1.73 m Height (Calculated Centimeters) 172.7 Current Weight (lbs) 64.41 kg Weight (Calculated Kilograms) 64.4 Weight (Calculated Grams) 33113.1 [place] Body Weight 112 % [place] Body Weight 127 Body Mass Index (BMI) 21.6 Weight Status Overweight GI Symptoms GI Symptoms Diarrhea Last BM no record Difficult in: None Skin Integrity/Comment: intact Estimated Nutritional Goals BEE in Kcals: Adj wt of IBW Calories/Kcals/Kg 25-30 Kcals Calculated 4151-2776 Protein: Adj wt of IBW Protein g/k Protein Calculated 54 Fluid: ml 1350-1620ml (1ml/kcal) Nutritional Problem 1. Problem Problem altered nutrition related lab values Etiology hx of dm Signs/Symptoms: Glucose 350, POC 275-401 Malnutrition Alert Protein-Calorie Malnutrition N/A Is there a minimum of two criteria No selected? Query Text:Check all the applicable criteria. A minimum of two criteria are recommended for diagnosis of either severe or non-severe malnutrition. Intervention/Recommendation Comments 1. Continue with current TF regimen considering high residual this morning. Check residual q4hr. Hold TF 1hr if residual >200ml. 2. adjust insulin for optimal glycemic control per MD order. 3. Monitor TF rate, tolerance, wt weekly, skin integrity and labs 4. F/U as high risk in 2-3 days, 2/2-2/3 Expected Outcomes/Goals Expected Outcomes/Goals 1. Pt to meet at least 75% of nutritional needs via nutrition support with tolerence. 2. Wt stability, skin to remain intact, labs to improve
--- NOTE | 2017-10-23 19:12 | Progress Notes ---
DATE: 10/23/2017 SUBJECTIVE: The patient was seen in her room, lying in the bed. The patient is a poor historian due to medical condition. Otherwise, the patient appears to be in no acute distress. OBJECTIVE: VITAL SIGNS: Temperature 98.6, heart rate 93, respirations of 18, blood pressure 128/53, 97% on 2 liters via nasal cannula. HEENT: Head is atraumatic and normocephalic. Eyes: Bilateral conjunctivae are clear. Bilateral pupils are equally round and reactive. NECK: Supple. No JVD. CARDIOVASCULAR: S1 and S2 without murmur. PULMONARY: Decreased breath sounds bilaterally. GASTROINTESTINAL: Soft and nontender without guarding. Positive bowel sounds. MUSCULOSKELETAL: Bilateral lower extremity amputation noted. ASSESSMENT: 1. Clostridium difficile colitis. 2. Dementia. 3. Dysphagia. 4. Bilateral lower extremity amputation. 5. Urinary tract infection. PLAN: We will continue to keep the patient on isolation. We will follow up with ID doctor for antibiotic management. We are also going to put the patient on aspiration precaution. Treatment plans were discussed with the patient's nurse. Treatment plans were discussed with Dr. Castaneda. JOB# [id number]
[2017-10-23] MEDS: Levofloxacin 500mg/100mL 500 MG/100 ML BAG IV SCH (20:40)
[2017-10-24] MEDS: Sodium Chloride 0.45% 1,000 ML IV SCH ×2 (06:00→13:28)
[2017-10-24] MEDS: Acetaminophen 500 MG TAB PO PRN (06:04)
[2017-10-24] MEDS: INSULIN ASPART SLIDING SCALE 100 UNITS/ML UNIT SUBQ SCH ×3 (06:34→16:48)
--- NOTE | 2017-10-24 09:06 | General Progress Note ---
Subjective - Review of Systems Events since last encounter: patient awake in no distress Objective - Results Result Diagrams: 10/23/17 07:50 10/23/17 07:50 Recent Labs: Laboratory Last Values WBC 10.2 Th/cmm (4.8-10.8) 10/23/17 07:50 RBC 2.76 Mil/cmm (3.80-5.20) L 10/23/17 07:50 Hgb 8.2 gm/dL (12-16) L 10/23/17 07:50 Hct 24.8 % (41.0-60) L 10/23/17 07:50 MCV 89.8 fl (81-100) 10/23/17 07:50 MCH 29.7 pg (27.0-31.0) 10/23/17 07:50 MCHC Differential 33.1 pg (28.0-36.0) 10/23/17 07:50 RDW 15.3 % (11.5-20.0) 10/23/17 07:50 Plt Count 198 Th/cmm (150-400) D 10/23/17 07:50 MPV 11.1 fl 10/23/17 07:50 Neutrophils % 76.4 % (40.0-80.0) 10/23/17 07:50 Band Neutrophils % 6 % (0-10) 10/19/17 20:32 Lymphocytes % 16.8 % (20.0-50.0) L 10/23/17 07:50 Monocytes % 5.9 % (2.0-10.0) 10/23/17 07:50 Eosinophils % 0.5 % (0.0-5.0) 10/23/17 07:50 Basophils % 0.4 % (0.0-2.0) 10/23/17 07:50 Neutrophils (Manual) 75 % (40-80) 10/19/17 20:32 Lymphocytes 14 % (20-50) L 10/19/17 20:32 Monocytes 3 % (2-10) 10/19/17 20:32 Eosinophils 2 % (0-5) 10/19/17 20:32 Basophils 0 % (0-3) 10/19/17 20:32 Platelet Estimate ADEQUATE (NORMAL) 10/19/17 20:32 Platelet Morphology NORMAL (NORMAL) 10/19/17 20:32 RBC Morph Micro Appear NORMAL (NORMAL) 10/19/17 20:32 Sodium 144 mEq/L (136-145) 10/23/17 07:50 Potassium 3.1 mEq/L (3.5-5.1) L 10/23/17 07:50 Chloride 112 mEq/L (98-107) H 10/23/17 07:50 Carbon Dioxide 22.0 mEq/L (21.0-31.0) 10/23/17 07:50 Anion Gap 13.1 (7.0-16.0) 10/23/17 07:50 BUN 34 mg/dL (7-25) H 10/23/17 07:50 Creatinine 1.4 mg/dL (0.6-1.2) H 10/23/17 07:50 Est GFR ( Amer) TNP 10/23/17 07:50 Est GFR (Non-Af Amer) TNP 10/23/17 07:50 BUN/Creatinine Ratio 24.3 10/23/17 07:50 Glucose 204 mg/dL (70-105) H 10/23/17 07:50 POC Glucose 186 MG/DL (70 - 105) H 10/24/17 05:51 Hemoglobin A1c % 8.5 % (4.0-6.0) H 10/19/17 20:32 Whole Bld Lactic Acid 0.88 mmol/L (0.60-1.99) 10/21/17 07:40 Calcium 7.6 mg/dL (8.6-10.3) L 10/23/17 07:50 Total Bilirubin 0.4 mg/dL (0.3-1.0) 10/19/17 20:32 AST 24 U/L (13-39) 10/19/17 20:32 ALT 10 U/L (7-52) 10/19/17 20:32 Alkaline Phosphatase 85 U/L (34-104) 10/19/17 20:32 Total Protein 5.9 gm/dL (6.0-8.3) L 10/19/17 20:32 Albumin 2.7 gm/dL (3.7-5.3) L 10/19/17 20:32 Globulin 3.2 gm/dL 10/19/17 20:32 Albumin/Globulin Ratio 0.8 (1.0-1.8) L 10/19/17 20:32 Urine Source CATH 10/20/17 03:50 Urine Color YELLOW 10/20/17 03:50 Urine Clarity HAZY (CLEAR) 10/20/17 03:50 Urine pH 6.0 (4.6 - 8.0) 10/20/17 03:50 Ur Specific [place] 1.015 (1.005-1.030) 10/20/17 03:50 Urine Protein 100 mg/dL (NEGATIVE) H 10/20/17 03:50 Urine Glucose (UA) >=1000 mg/dL (NEGATIVE) H 10/20/17 03:50 Urine Ketones NEGATIVE mg/dL (NEGATIVE) 10/20/17 03:50 Urine Blood LARGE (NEGATIVE) H 10/20/17 03:50 Urine Nitrate NEGATIVE (NEGATIVE) 10/20/17 03:50 Urine Bilirubin NEGATIVE (NEGATIVE) 10/20/17 03:50 Urine Urobilinogen 0.2 E.U./dL (0.2 - 1.0) 10/20/17 03:50 Ur Leukocyte Esterase SMALL (NEGATIVE) H 10/20/17 03:50 Urine RBC 5-10 /hpf (0-5) H 10/20/17 03:50 Urine WBC 50-100 /hpf (0-5) H 10/20/17 03:50 Ur Epithelial Cells MODERATE /lpf (FEW) 10/20/17 03:50 Urine Bacteria MODERATE /hpf (NONE SEEN) H 10/20/17 03:50 - Physical Exam Vitals and I&O: Vital Signs Temp 98.4 F 10/24/17 08:00 Pulse 86 10/24/17 08:01 Resp 22 10/24/17 08:01 BP 150/55 10/24/17 08:00 Pulse Ox 99 10/24/17 08:01 Intake & Output 10/23/17 10/24/17 10/24/17 18:59 06:59 18:59 Intake Total 400 1680 Output Total 900 750 Balance -500 930 Weight (lbs) 61.689 kg 61.689 kg Intake: Intake, IV Amount 1100 Levofloxacin 500mg/100mL 100 500 mg In 100 ml @ 100 mls/hr IV Q24HR [facility] Rx#: [id number] Sodium Chloride 0.45% 1, 1000 000 ml @ 50 mls/hr IV . Q20H [facility] Rx#:[id number] Tube Feeding 400 480 Other 100 Output: Urine 900 750 Other: # Bowel Movements 0 0 Active Medications: Current Medications Acetaminophen (Tylenol Extra Strength) 1,000 mg PO Q4HR PRN PRN Reason: MOD PAIN Stop: 12/18/17 21:29 Last Admin: 10/24/17 06:04 Dose: 1,000 mg Acetaminophen (Tylenol) 650 mg PO Q4HR PRN PRN Reason: MILD PAIN OR TEMP >101F Stop: 12/18/17 21:29 Last Admin: 10/23/17 17:38 Dose: 650 mg Amlodipine Besylate (Norvasc) 5 mg GT DAILY [facility] Stop: 12/19/17 08:59 Last Admin: 10/23/17 09:14 Dose: 5 mg Ascorbic Acid (Vitamin C) 500 mg GT DAILY [facility] Stop: 12/19/17 08:59 Last Admin: 10/23/17 12:59 Dose: Not Given Bisacodyl (Dulcolax 10 Mg Supp) 10 mg RC DAILY PRN PRN Reason: Constipation Stop: 12/18/17 21:29 Calamine (Calamine) 1 appl TP DAILY [facility] Stop: 12/19/17 08:59 Last Admin: 10/23/17 09:18 Dose: 1 appl Hydralazine HCl (Apresoline) 50 mg GT TID [facility] Stop: 12/19/17 08:59 Last Admin: 10/23/17 20:42 Dose: 50 mg Levofloxacin (Levaquin Pb) 500 mg in 100 mls @ 100 mls/hr IV Q24HR [facility] Stop: 12/18/17 19:59 Last Infusion: 10/23/17 21:40 Dose: Infused Sodium Chloride (Nacl 0.45%) 1,000 mls @ 50 mls/hr IV .Q20H [facility] Stop: 12/21/17 19:02 Last Admin: 10/24/17 06:00 Dose: 50 mls/hr Insulin Aspart (Novolog Insulin Sliding Scale) 0 units SUBQ ACHS [facility] PRN Reason: Protocol Stop: 12/19/17 07:29 Last Admin: 10/24/17 06:34 Dose: 2 units Insulin Detemir (Levemir Insulin) 30 units SUBQ Q12HR [facility] PRN Reason: Protocol Stop: 12/19/17 08:59 Last Admin: 10/23/17 20:43 Dose: 30 units Lactobacillus Rhamnosus (Culturelle 15b) 1 each GT DAILY [facility] Stop: 12/20/17 08:59 Last Admin: 10/23/17 09:14 Dose: 1 each Magnesium Hydroxide (Milk Of Magnesia) 30 ml GT HS PRN PRN Reason: Constipation Stop: 12/18/17 21:29 Memantine (Namenda) 10 mg GT BID [facility] Stop: 12/19/17 08:59 Last Admin: 10/23/17 17:29 Dose: 10 mg Metronidazole (Flagyl) 500 mg PO TID [facility] Stop: 10/26/17 21:01 Last Admin: 10/23/17 20:45 Dose: 500 mg Miscellaneous (Probiotic Screen) 1 ea MC PRN PRN PRN Reason: PROTOCOL Stop: 12/19/17 15:39 Pantoprazole Sodium (Protonix) 40 mg IVP DAILY [facility] Stop: 12/19/17 08:59 Last Admin: 10/23/17 09:13 Dose: 40 mg Senna (Senna) 17.2 mg GT HS [facility] Stop: 12/19/17 20:59 Last Admin: 10/23/17 20:42 Dose: 17.2 mg Sodium Phosphate (Fleet Enema) 135 ml RC Q48H PRN PRN Reason: Constipation Stop: 12/18/17 21:29 Vitamin A (Vitamin A & D) 5 gm TP DAILY [facility] Stop: 12/19/17 08:59 Last Admin: 10/23/17 09:18 Dose: 5 gm Zinc Sulfate (Zinc Sulfate) 220 mg GT DAILY [facility] Stop: 12/19/17 08:59 Last Admin: 10/23/17 09:14 Dose: 220 mg - Procedures Procedures: Procedures Procedure Code Date CHANGE FEEDING DEVICE IN UP INTEST TRACT, LOOM FIXER APPROACH [id number] 09/13/17 Assessment/Plan - Problem List Patient Problems: All Active Problems ELEVATED BLOOD GLUCOSE (Acute) Nutritional Asmnt/Malnutr-PDOC - Dietary Evaluation Malnutrition Findings (Please click <Entered> for more info): Nutritional Asmnt/Malnutrition Start: 10/20/17 17: 24 Text: Status: Complete Freq: Document 10/20/17 17:24 DANO (Rec: 10/20/17 17:46 LCLUIS FERNANDO [id number]) Nutritional Asmnt/Malnutrition Patient General Information Nutritional Screening High Risk Consult Diagnosis urosepsis, c diff Pertinent Medical Hx/Surgical Hx bilateral AKA, DM, blindness, NGTube, dysphagia, COPD, HTN, dementia, neurogenic bladder, osteomyelitis, peristent vegetative status, atherosclerosis of aorta Subjective Information Consult received for brade score of 13, BS 350. Pt seen lying in bed at time of visit. Spoke with RN, RN reported pt had residual > 200ml this morning, TF was hold for 2.5 hr. Rechecked, residual 0ml, restarted TF. Adj BMI considering bilateral AKA BMI=26.8, overweight Current Diet Order/ Nutrition Support Diabetisource 40ml/hr continuous, providing 1152kcal , 58g protein Pertinent Medications vitamin C, novolog, levemir, culturelle, levaquin, protonix , vitamin A&D, zinc Pertinent Labs 10/19 Na 151, K 4.3, Cl 121, BUN 57, Cr 1.8, Glucose 350, POC 340, Ca 8.5, Alb 2.7 10/20 POC 275-401 Nutritional Hx/Data Height 1.73 m Height (Calculated Centimeters) 172.7 Current Weight (lbs) 64.41 kg Weight (Calculated Kilograms) 64.4 Weight (Calculated Grams) 91253.1 [place] Body Weight 112 % [place] Body Weight 127 Body Mass Index (BMI) 21.6 Weight Status Overweight GI Symptoms GI Symptoms Diarrhea Last BM no record Difficult in: None Skin Integrity/Comment: intact Estimated Nutritional Goals BEE in Kcals: Adj wt of IBW Calories/Kcals/Kg 25-30 Kcals Calculated 7704-9458 Protein: Adj wt of IBW Protein g/k Protein Calculated 54 Fluid: ml 1350-1620ml (1ml/kcal) Nutritional Problem 1. Problem Problem altered nutrition related lab values Etiology hx of dm Signs/Symptoms: Glucose 350, POC 275-401 Malnutrition Alert Protein-Calorie Malnutrition N/A Is there a minimum of two criteria No selected? Query Text:Check all the applicable criteria. A minimum of two criteria are recommended for diagnosis of either severe or non-severe malnutrition. Intervention/Recommendation Comments 1. Continue with current TF regimen considering high residual this morning. Check residual q4hr. Hold TF 1hr if residual >200ml. 2. adjust insulin for optimal glycemic control per MD order. 3. Monitor TF rate, tolerance, wt weekly, skin integrity and labs 4. F/U as high risk in 2-3 days, 2/2-2/3 Expected Outcomes/Goals Expected Outcomes/Goals 1. Pt to meet at least 75% of nutritional needs via nutrition support with tolerence. 2. Wt stability, skin to remain intact, labs to improve
[2017-10-24] MEDS: Insulin Detemir 100 units/mL 10mL Vial SUBQ SCH (10:00)
[2017-10-24] MEDS: Lactobacillus Rhamnosus GG 15 Billion CFU CAP.SPRINK GT SCH (10:02)
[2017-10-24] MEDS: Multivitamin w/ Minerals Tab PO SCH (10:02)
[2017-10-24] MEDS: Vitamin A/Vitamin D 5 gm Packet TP SCH (10:04)
[2017-10-24] MEDS: CALAMINE TP SCH (10:04)
--- NOTE | 2017-10-24 15:41 | Infectious Disease Prog Note ---
Infectious Disease Subjective - Review of Systems Service Date: 10/24/17 Subjective: doing well. no fever/ Infectious Disease Objective - Results Result Diagrams: 10/23/17 07:50 10/23/17 07:50 Recent Labs: Laboratory Last Values WBC 10.2 Th/cmm (4.8-10.8) 10/23/17 07:50 RBC 2.76 Mil/cmm (3.80-5.20) L 10/23/17 07:50 Hgb 8.2 gm/dL (12-16) L 10/23/17 07:50 Hct 24.8 % (41.0-60) L 10/23/17 07:50 MCV 89.8 fl (81-100) 10/23/17 07:50 MCH 29.7 pg (27.0-31.0) 10/23/17 07:50 MCHC Differential 33.1 pg (28.0-36.0) 10/23/17 07:50 RDW 15.3 % (11.5-20.0) 10/23/17 07:50 Plt Count 198 Th/cmm (150-400) D 10/23/17 07:50 MPV 11.1 fl 10/23/17 07:50 Neutrophils % 76.4 % (40.0-80.0) 10/23/17 07:50 Band Neutrophils % 6 % (0-10) 10/19/17 20:32 Lymphocytes % 16.8 % (20.0-50.0) L 10/23/17 07:50 Monocytes % 5.9 % (2.0-10.0) 10/23/17 07:50 Eosinophils % 0.5 % (0.0-5.0) 10/23/17 07:50 Basophils % 0.4 % (0.0-2.0) 10/23/17 07:50 Neutrophils (Manual) 75 % (40-80) 10/19/17 20:32 Lymphocytes 14 % (20-50) L 10/19/17 20:32 Monocytes 3 % (2-10) 10/19/17 20:32 Eosinophils 2 % (0-5) 10/19/17 20:32 Basophils 0 % (0-3) 10/19/17 20:32 Platelet Estimate ADEQUATE (NORMAL) 10/19/17 20:32 Platelet Morphology NORMAL (NORMAL) 10/19/17 20:32 RBC Morph Micro Appear NORMAL (NORMAL) 10/19/17 20:32 Sodium 144 mEq/L (136-145) 10/23/17 07:50 Potassium 3.1 mEq/L (3.5-5.1) L 10/23/17 07:50 Chloride 112 mEq/L (98-107) H 10/23/17 07:50 Carbon Dioxide 22.0 mEq/L (21.0-31.0) 10/23/17 07:50 Anion Gap 13.1 (7.0-16.0) 10/23/17 07:50 BUN 34 mg/dL (7-25) H 10/23/17 07:50 Creatinine 1.4 mg/dL (0.6-1.2) H 10/23/17 07:50 Est GFR ( Amer) TNP 10/23/17 07:50 Est GFR (Non-Af Amer) TNP 10/23/17 07:50 BUN/Creatinine Ratio 24.3 10/23/17 07:50 Glucose 204 mg/dL (70-105) H 10/23/17 07:50 POC Glucose 220 MG/DL (70 - 105) H 10/24/17 11:45 Hemoglobin A1c % 8.5 % (4.0-6.0) H 10/19/17 20:32 Whole Bld Lactic Acid 0.88 mmol/L (0.60-1.99) 10/21/17 07:40 Calcium 7.6 mg/dL (8.6-10.3) L 10/23/17 07:50 Total Bilirubin 0.4 mg/dL (0.3-1.0) 10/19/17 20:32 AST 24 U/L (13-39) 10/19/17 20:32 ALT 10 U/L (7-52) 10/19/17 20:32 Alkaline Phosphatase 85 U/L (34-104) 10/19/17 20:32 Total Protein 5.9 gm/dL (6.0-8.3) L 10/19/17 20:32 Albumin 2.7 gm/dL (3.7-5.3) L 10/19/17 20:32 Globulin 3.2 gm/dL 10/19/17 20:32 Albumin/Globulin Ratio 0.8 (1.0-1.8) L 10/19/17 20:32 Urine Source CATH 10/20/17 03:50 Urine Color YELLOW 10/20/17 03:50 Urine Clarity HAZY (CLEAR) 10/20/17 03:50 Urine pH 6.0 (4.6 - 8.0) 10/20/17 03:50 Ur Specific [place] 1.015 (1.005-1.030) 10/20/17 03:50 Urine Protein 100 mg/dL (NEGATIVE) H 10/20/17 03:50 Urine Glucose (UA) >=1000 mg/dL (NEGATIVE) H 10/20/17 03:50 Urine Ketones NEGATIVE mg/dL (NEGATIVE) 10/20/17 03:50 Urine Blood LARGE (NEGATIVE) H 10/20/17 03:50 Urine Nitrate NEGATIVE (NEGATIVE) 10/20/17 03:50 Urine Bilirubin NEGATIVE (NEGATIVE) 10/20/17 03:50 Urine Urobilinogen 0.2 E.U./dL (0.2 - 1.0) 10/20/17 03:50 Ur Leukocyte Esterase SMALL (NEGATIVE) H 10/20/17 03:50 Urine RBC 5-10 /hpf (0-5) H 10/20/17 03:50 Urine WBC 50-100 /hpf (0-5) H 10/20/17 03:50 Ur Epithelial Cells MODERATE /lpf (FEW) 10/20/17 03:50 Urine Bacteria MODERATE /hpf (NONE SEEN) H 10/20/17 03:50 - Physical Exam Vitals and I&O: Vital Signs Temp 98.4 F 10/24/17 12:00 Pulse 84 10/24/17 13:28 Resp 20 10/24/17 12:00 BP 127/56 10/24/17 13:28 Pulse Ox 100 10/24/17 12:00 Intake & Output 10/23/17 10/24/17 10/24/17 18:59 06:59 18:59 Intake Total 400 1680 372.5 Output Total 900 750 Balance -500 930 372.5 Weight (lbs) 61.689 kg 61.689 kg Intake: Intake, IV Amount 1100 372.5 Levofloxacin 500mg/100mL 100 500 mg In 100 ml @ 100 mls/hr IV Q24HR [facility] Rx#: [id number] Sodium Chloride 0.45% 1, 1000 372.5 000 ml @ 50 mls/hr IV . Q20H [facility] Rx#:[id number] Tube Feeding 400 480 Other 100 Output: Urine 900 750 Other: # Bowel Movements 0 0 Active Medications: Current Medications Acetaminophen (Tylenol Extra Strength) 1,000 mg PO Q4HR PRN PRN Reason: MOD PAIN Stop: 12/18/17 21:29 Last Admin: 10/24/17 06:04 Dose: 1,000 mg Acetaminophen (Tylenol) 650 mg PO Q4HR PRN PRN Reason: MILD PAIN OR TEMP >101F Stop: 12/18/17 21:29 Last Admin: 10/23/17 17:38 Dose: 650 mg Amlodipine Besylate (Norvasc) 5 mg GT DAILY [facility] Stop: 12/19/17 08:59 Last Admin: 10/24/17 10:02 Dose: 5 mg Ascorbic Acid (Vitamin C) 500 mg GT DAILY [facility] Stop: 12/19/17 08:59 Bisacodyl (Dulcolax 10 Mg Supp) 10 mg RC DAILY PRN PRN Reason: Constipation Stop: 12/18/17 21:29 Calamine (Calamine) 1 appl TP DAILY [facility] Stop: 12/19/17 08:59 Last Admin: 10/24/17 10:04 Dose: 1 appl Hydralazine HCl (Apresoline) 50 mg GT TID [facility] Stop: 12/19/17 08:59 Last Admin: 10/24/17 13:28 Dose: 50 mg Levofloxacin (Levaquin Pb) 500 mg in 100 mls @ 100 mls/hr IV Q24HR [facility] Stop: 12/18/17 19:59 Last Infusion: 10/23/17 21:40 Dose: Infused Sodium Chloride (Nacl 0.45%) 1,000 mls @ 50 mls/hr IV .Q20H [facility] Stop: 12/21/17 19:02 Last Admin: 10/24/17 13:28 Dose: 50 mls/hr Insulin Aspart (Novolog Insulin Sliding Scale) 0 units SUBQ ACHS [facility] PRN Reason: Protocol Stop: 12/19/17 07:29 Last Admin: 10/24/17 12:25 Dose: 3 units Insulin Detemir (Levemir Insulin) 30 units SUBQ Q12HR [facility] PRN Reason: Protocol Stop: 12/19/17 08:59 Last Admin: 10/24/17 10:00 Dose: 30 units Lactobacillus Rhamnosus (Culturelle 15b) 1 each GT DAILY [facility] Stop: 12/20/17 08:59 Last Admin: 10/24/17 10:02 Dose: 1 each Magnesium Hydroxide (Milk Of Magnesia) 30 ml GT HS PRN PRN Reason: Constipation Stop: 12/18/17 21:29 Memantine (Namenda) 10 mg GT BID [facility] Stop: 12/19/17 08:59 Last Admin: 10/24/17 10:02 Dose: 10 mg Metronidazole (Flagyl) 500 mg PO TID [facility] Stop: 10/26/17 21:01 Last Admin: 10/24/17 13:28 Dose: 500 mg Miscellaneous (Probiotic Screen) 1 ea MC PRN PRN PRN Reason: PROTOCOL Stop: 12/19/17 15:39 Pantoprazole Sodium (Protonix) 40 mg IVP DAILY [facility] Stop: 12/19/17 08:59 Last Admin: 10/24/17 10:01 Dose: 40 mg Senna (Senna) 17.2 mg GT HS [facility] Stop: 12/19/17 20:59 Last Admin: 10/23/17 20:42 Dose: 17.2 mg Sodium Phosphate (Fleet Enema) 135 ml RC Q48H PRN PRN Reason: Constipation Stop: 12/18/17 21:29 Vitamin A (Vitamin A & D) 5 gm TP DAILY [facility] Stop: 12/19/17 08:59 Last Admin: 10/24/17 10:04 Dose: 5 gm Zinc Sulfate (Zinc Sulfate) 220 mg GT DAILY [facility] Stop: 12/19/17 08:59 Last Admin: 10/24/17 10:02 Dose: 220 mg General: no acute distress, well developed, well nourished HEENT: atraumatic, normocephalic, PERRLA Neck: supple, no thyromegaly Cardiovascular: S1S2, regular Lungs: clear to auscultation bilaterally, clear to percussion Abdomen: soft, no tender, no distended, no mass, no rebound Extremities: no cyanosis, no clubbing, no edema Neurological: awake, alert, oriented - Procedures Procedures: Procedures Procedure Code Date CHANGE FEEDING DEVICE IN UP INTEST TRACT, BAKER CHEF APPROACH [id number] 09/13/17 Infectious Disease Assmt/Plan - Problem List Patient Problems: All Active Problems ELEVATED BLOOD GLUCOSE (Acute) - Assessment Assessment: 1. Fever. 2. C diff colitis. 3. UTI. - Plan Plan: Will do fever w/u. Continue levaquin and flagyl. Nutritional Asmnt/Malnutr-PDOC - Dietary Evaluation Malnutrition Findings (Please click <Entered> for more info): Nutritional Asmnt/Malnutrition Start: 10/20/17 17: 24 Text: Status: Complete Freq: Document 10/20/17 17:24 HEN (Rec: 10/20/17 17:[email or web address] Nutritional Asmnt/Malnutrition Patient General Information Nutritional Screening High Risk Consult Diagnosis urosepsis, c diff Pertinent Medical Hx/Surgical Hx bilateral AKA, DM, blindness, NGTube, dysphagia, COPD, HTN, dementia, neurogenic bladder, osteomyelitis, peristent vegetative status, atherosclerosis of aorta Subjective Information Consult received for brade score of 13, BS 350. Pt seen lying in bed at time of visit. Spoke with RN, RN reported pt had residual > 200ml this morning, TF was hold for 2.5 hr. Rechecked, residual 0ml, restarted TF. Adj BMI considering bilateral AKA BMI=26.8, overweight Current Diet Order/ Nutrition Support Diabetisource 40ml/hr continuous, providing 1152kcal , 58g protein Pertinent Medications vitamin C, novolog, levemir, culturelle, levaquin, protonix , vitamin A&D, zinc Pertinent Labs 10/19 Na 151, K 4.3, Cl 121, BUN 57, Cr 1.8, Glucose 350, POC 340, Ca 8.5, Alb 2.7 10/20 POC 275-401 Nutritional Hx/Data Height 1.73 m Height (Calculated Centimeters) 172.7 Current Weight (lbs) 64.41 kg Weight (Calculated Kilograms) 64.4 Weight (Calculated Grams) 21775.1 [place] Body Weight 112 % [place] Body Weight 127 Body Mass Index (BMI) 21.6 Weight Status Overweight GI Symptoms GI Symptoms Diarrhea Last BM no record Difficult in: None Skin Integrity/Comment: intact Estimated Nutritional Goals BEE in Kcals: Adj wt of IBW Calories/Kcals/Kg 25-30 Kcals Calculated 6015-1943 Protein: Adj wt of IBW Protein g/k Protein Calculated 54 Fluid: ml 1350-1620ml (1ml/kcal) Nutritional Problem 1. Problem Problem altered nutrition related lab values Etiology hx of dm Signs/Symptoms: Glucose 350, POC 275-401 Malnutrition Alert Protein-Calorie Malnutrition N/A Is there a minimum of two criteria No selected? Query Text:Check all the applicable criteria. A minimum of two criteria are recommended for diagnosis of either severe or non-severe malnutrition. Intervention/Recommendation Comments 1. Continue with current TF regimen considering high residual this morning. Check residual q4hr. Hold TF 1hr if residual >200ml. 2. adjust insulin for optimal glycemic control per MD order. 3. Monitor TF rate, tolerance, wt weekly, skin integrity and labs 4. F/U as high risk in 2-3 days, 2/2-2/3 Expected Outcomes/Goals Expected Outcomes/Goals 1. Pt to meet at least 75% of nutritional needs via nutrition support with tolerence. 2. Wt stability, skin to remain intact, labs to improve
[2017-10-24] MEDS ORDERED: Potassium Chloride Elixir 20 mEq /15 mL UDC GT ONE (19:41)
[2017-10-24] MEDS: Levofloxacin 500mg/100mL 500 MG/100 ML BAG IV SCH (21:25)
[2017-10-25] MEDS ORDERED: INSULIN ASPART SLIDING SCALE 100 UNITS/ML UNIT SUBQ SCH ×2 (06:00)
[2017-10-25 06:03] LABS: ANION GAP 14.1 (7.0-16.0); BUN - UREA NITROGEN 33 mg/dL (7-25); CALCIUM SERUM 7.7 mg/dL (8.6-10.3); CARBON DIOXIDE 22.3 mEq/L (21.0-31.0); CHLORIDE 111 mEq/L (98-107); CREATININE - SERUM 1.3 mg/dL (0.6-1.2); GLUCOSE 225 mg/dL (70-105); POTASSIUM SERUM 4.4 mEq/L (3.5-5.1); SODIUM SERUM 143 mEq/L (136-145)
[2017-10-25] MEDS: INSULIN ASPART SLIDING SCALE 100 UNITS/ML UNIT SUBQ SCH ×3 (07:04→18:14)
[2017-10-25] MEDS: Insulin Detemir 100 units/mL 10mL Vial SUBQ SCH ×3 (07:05→20:45)
[2017-10-25] MEDS: Sodium Chloride 0.45% 1,000 ML IV SCH (07:06)
[2017-10-25 07:13] LABS: HEMATOCRIT 25.3 % (41.0-60); HEMOGLOBIN 8.5 gm/dL (12-16); MEAN CELL VOLUME 90.3 fl (81-100); MEAN CORPUSCULAR HEMOGLOBIN 30.2 pg (27.0-31.0); MEAN CORPUSCULAR HGB CONC 33.5 pg (28.0-36.0); MEAN PLATELET VOLUME 11.1 fl; RED CELL DISTRIBUTION WIDTH 15.4 % (11.5-20.0); WHITE BLOOD COUNT 15.8 Th/cmm (4.8-10.8)
[2017-10-25 07:15] LABS: BAND NEUTROPHILE 10 % (0-10); EOSINOPHIL 1 % (0-5); LYMPHOCYTE 5 % (20-50); MONOCYTE 3 % (2-10); NEUTROPHILS 81 % (40-80); PLATELET COUNT 267 Th/cmm (150-400); TOTAL CELLS COUNTED 100
[2017-10-25] MEDS ORDERED: Potassium Chloride Elixir 20 mEq /15 mL UDC GT ONE (09:00)
[2017-10-25] MEDS: Vitamin A/Vitamin D 5 gm Packet TP SCH (09:23)
[2017-10-25] MEDS: Multivitamin w/ Minerals Tab PO SCH (09:24)
[2017-10-25] MEDS: CALAMINE TP SCH (09:24)
[2017-10-25] MEDS: Lactobacillus Rhamnosus GG 15 Billion CFU CAP.SPRINK GT SCH (09:24)
--- NOTE | 2017-10-25 09:34 | General Progress Note ---
Subjective - Review of Systems Events since last encounter: no fever no distress Objective - Results Result Diagrams: 10/25/17 05:25 10/25/17 05:25 Recent Labs: Laboratory Last Values WBC 15.8 Th/cmm (4.8-10.8) H D 10/25/17 05:25 RBC 2.80 Mil/cmm (3.80-5.20) L 10/25/17 05:25 Hgb 8.5 gm/dL (12-16) L 10/25/17 05:25 Hct 25.3 % (41.0-60) L 10/25/17 05:25 MCV 90.3 fl (81-100) 10/25/17 05:25 MCH 30.2 pg (27.0-31.0) 10/25/17 05:25 MCHC Differential 33.5 pg (28.0-36.0) 10/25/17 05:25 RDW 15.4 % (11.5-20.0) 10/25/17 05:25 Plt Count 267 Th/cmm (150-400) D 10/25/17 05:25 MPV 11.1 fl 10/25/17 05:25 Neutrophils % 76.4 % (40.0-80.0) 10/23/17 07:50 Band Neutrophils % 10 % (0-10) 10/25/17 05:25 Lymphocytes % 16.8 % (20.0-50.0) L 10/23/17 07:50 Monocytes % 5.9 % (2.0-10.0) 10/23/17 07:50 Eosinophils % 0.5 % (0.0-5.0) 10/23/17 07:50 Basophils % 0.4 % (0.0-2.0) 10/23/17 07:50 Neutrophils (Manual) 81 % (40-80) H 10/25/17 05:25 Lymphocytes 5 % (20-50) L 10/25/17 05:25 Monocytes 3 % (2-10) 10/25/17 05:25 Eosinophils 1 % (0-5) 10/25/17 05:25 Basophils 0 % (0-3) 10/19/17 20:32 Platelet Estimate ADEQUATE (NORMAL) 10/19/17 20:32 Platelet Morphology NORMAL (NORMAL) 10/19/17 20:32 RBC Morph Micro Appear NORMAL (NORMAL) 10/19/17 20:32 Sodium 143 mEq/L (136-145) 10/25/17 05:25 Potassium 4.4 mEq/L (3.5-5.1) 10/25/17 05:25 Chloride 111 mEq/L (98-107) H 10/25/17 05:25 Carbon Dioxide 22.3 mEq/L (21.0-31.0) 10/25/17 05:25 Anion Gap 14.1 (7.0-16.0) 10/25/17 05:25 BUN 33 mg/dL (7-25) H 10/25/17 05:25 Creatinine 1.3 mg/dL (0.6-1.2) H 10/25/17 05:25 Est GFR ( Amer) TNP 10/25/17 05:25 Est GFR (Non-Af Amer) TNP 10/25/17 05:25 BUN/Creatinine Ratio 25.4 10/25/17 05:25 Glucose 225 mg/dL (70-105) H 10/25/17 05:25 POC Glucose 219 MG/DL (70 - 105) H 10/25/17 06:15 Hemoglobin A1c % 8.5 % (4.0-6.0) H 10/19/17 20:32 Whole Bld Lactic Acid 0.88 mmol/L (0.60-1.99) 10/21/17 07:40 Calcium 7.7 mg/dL (8.6-10.3) L 10/25/17 05:25 Total Bilirubin 0.4 mg/dL (0.3-1.0) 10/19/17 20:32 AST 24 U/L (13-39) 10/19/17 20:32 ALT 10 U/L (7-52) 10/19/17 20:32 Alkaline Phosphatase 85 U/L (34-104) 10/19/17 20:32 Total Protein 5.9 gm/dL (6.0-8.3) L 10/19/17 20:32 Albumin 2.7 gm/dL (3.7-5.3) L 10/19/17 20:32 Globulin 3.2 gm/dL 10/19/17 20:32 Albumin/Globulin Ratio 0.8 (1.0-1.8) L 10/19/17 20:32 Urine Source CATH 10/20/17 03:50 Urine Color YELLOW 10/20/17 03:50 Urine Clarity HAZY (CLEAR) 10/20/17 03:50 Urine pH 6.0 (4.6 - 8.0) 10/20/17 03:50 Ur Specific [place] 1.015 (1.005-1.030) 10/20/17 03:50 Urine Protein 100 mg/dL (NEGATIVE) H 10/20/17 03:50 Urine Glucose (UA) >=1000 mg/dL (NEGATIVE) H 10/20/17 03:50 Urine Ketones NEGATIVE mg/dL (NEGATIVE) 10/20/17 03:50 Urine Blood LARGE (NEGATIVE) H 10/20/17 03:50 Urine Nitrate NEGATIVE (NEGATIVE) 10/20/17 03:50 Urine Bilirubin NEGATIVE (NEGATIVE) 10/20/17 03:50 Urine Urobilinogen 0.2 E.U./dL (0.2 - 1.0) 10/20/17 03:50 Ur Leukocyte Esterase SMALL (NEGATIVE) H 10/20/17 03:50 Urine RBC 5-10 /hpf (0-5) H 10/20/17 03:50 Urine WBC 50-100 /hpf (0-5) H 10/20/17 03:50 Ur Epithelial Cells MODERATE /lpf (FEW) 10/20/17 03:50 Urine Bacteria MODERATE /hpf (NONE SEEN) H 10/20/17 03:50 - Physical Exam Vitals and I&O: Vital Signs Temp 97.5 F 10/25/17 04:00 Pulse 99 10/25/17 09:25 Resp 22 10/25/17 08:21 BP 135/61 10/25/17 09:25 Pulse Ox 98 10/25/17 08:21 Intake & Output 10/24/17 10/25/17 10/25/17 18:59 06:59 18:59 Intake Total 372.5 650 881.667 Output Total 600 Balance 372.5 50 881.667 Weight (lbs) 60.781 kg Intake: Intake, IV Amount 372.5 100 881.667 Levofloxacin 500mg/100mL 100 500 mg In 100 ml @ 100 mls/hr IV Q24HR [facility] Rx#: [id number] Sodium Chloride 0.45% 1, 372.5 881.667 000 ml @ 50 mls/hr IV . Q20H [facility] Rx#:[id number] Tube Feeding 550 Output: Urine 600 Other: # Bowel Movements 0 Active Medications: Current Medications Acetaminophen (Tylenol Extra Strength) 1,000 mg PO Q4HR PRN PRN Reason: MOD PAIN Stop: 12/18/17 21:29 Last Admin: 10/24/17 06:04 Dose: 1,000 mg Acetaminophen (Tylenol) 650 mg PO Q4HR PRN PRN Reason: MILD PAIN OR TEMP >101F Stop: 12/18/17 21:29 Last Admin: 10/23/17 17:38 Dose: 650 mg Amlodipine Besylate (Norvasc) 5 mg GT DAILY [facility] Stop: 12/19/17 08:59 Last Admin: 10/25/17 09:25 Dose: 5 mg Ascorbic Acid (Vitamin C) 500 mg GT DAILY [facility] Stop: 12/19/17 08:59 Last Admin: 10/25/17 09:24 Dose: 500 mg Bisacodyl (Dulcolax 10 Mg Supp) 10 mg RC DAILY PRN PRN Reason: Constipation Stop: 12/18/17 21:29 Calamine (Calamine) 1 appl TP DAILY [facility] Stop: 12/19/17 08:59 Last Admin: 10/25/17 09:24 Dose: 1 appl Hydralazine HCl (Apresoline) 50 mg GT TID [facility] Stop: 12/19/17 08:59 Last Admin: 10/25/17 09:24 Dose: 50 mg Levofloxacin (Levaquin Pb) 500 mg in 100 mls @ 100 mls/hr IV Q24HR [facility] Stop: 12/18/17 19:59 Last Infusion: 10/24/17 22:25 Dose: Infused Sodium Chloride (Nacl 0.45%) 1,000 mls @ 50 mls/hr IV .Q20H [facility] Stop: 12/21/17 19:02 Last Admin: 10/25/17 07:06 Dose: 50 mls/hr Insulin Aspart (Novolog Insulin Sliding Scale) 0 units SUBQ Q6HR [facility] PRN Reason: Protocol Stop: 12/24/17 06:57 Last Admin: 10/25/17 07:04 Dose: 4 units Insulin Detemir (Levemir Insulin) 30 units SUBQ Q12HR [facility] PRN Reason: Protocol Stop: 12/24/17 00:00 Last Admin: 10/25/17 09:25 Dose: Not Given Lactobacillus Rhamnosus (Culturelle 15b) 1 each GT DAILY [facility] Stop: 12/20/17 08:59 Last Admin: 10/25/17 09:24 Dose: 1 each Magnesium Hydroxide (Milk Of Magnesia) 30 ml GT HS PRN PRN Reason: Constipation Stop: 12/18/17 21:29 Memantine (Namenda) 10 mg GT BID [facility] Stop: 12/19/17 08:59 Last Admin: 10/25/17 09:25 Dose: 10 mg Metronidazole (Flagyl) 500 mg PO TID [facility] Stop: 10/26/17 21:01 Last Admin: 10/25/17 09:24 Dose: 500 mg Miscellaneous (Probiotic Screen) 1 ea MC PRN PRN PRN Reason: PROTOCOL Stop: 12/19/17 15:39 Pantoprazole Sodium (Protonix) 40 mg IVP DAILY [facility] Stop: 12/19/17 08:59 Last Admin: 10/25/17 09:24 Dose: 40 mg Senna (Senna) 17.2 mg GT HS [facility] Stop: 12/19/17 20:59 Last Admin: 10/24/17 21:25 Dose: 17.2 mg Sodium Phosphate (Fleet Enema) 135 ml RC Q48H PRN PRN Reason: Constipation Stop: 12/18/17 21:29 Vitamin A (Vitamin A & D) 5 gm TP DAILY [facility] Stop: 12/19/17 08:59 Last Admin: 10/25/17 09:23 Dose: 5 gm Zinc Sulfate (Zinc Sulfate) 220 mg GT DAILY [facility] Stop: 12/19/17 08:59 Last Admin: 10/25/17 09:24 Dose: 220 mg - Procedures Procedures: Procedures Procedure Code Date CHANGE FEEDING DEVICE IN UP INTEST TRACT, MANUFA[employer]URING ENGINEERING INTERN APPROACH 3A80PSL 09/13/17 Assessment/Plan - Problem List Patient Problems: All Active Problems ELEVATED BLOOD GLUCOSE (Acute) Nutritional Asmnt/Malnutr-PDOC - Dietary Evaluation Malnutrition Findings (Please click <Entered> for more info): Nutritional Asmnt/Malnutrition Start: 10/20/17 17: 24 Text: Status: Complete Freq: Document 10/20/17 17:24 DANO (Rec: 10/20/17 17:46 DANO [email or web address]) Nutritional Asmnt/Malnutrition Patient General Information Nutritional Screening High Risk Consult Diagnosis urosepsis, c diff Pertinent Medical Hx/Surgical Hx bilateral AKA, DM, blindness, NGTube, dysphagia, COPD, HTN, dementia, neurogenic bladder, osteomyelitis, peristent vegetative status, atherosclerosis of aorta Subjective Information Consult received for brade score of 13, BS 350. Pt seen lying in bed at time of visit. Spoke with RN, RN reported pt had residual > 200ml this morning, TF was hold for 2.5 hr. Rechecked, residual 0ml, restarted TF. Adj BMI considering bilateral AKA BMI=26.8, overweight Current Diet Order/ Nutrition Support Diabetisource 40ml/hr continuous, providing 1152kcal , 58g protein Pertinent Medications vitamin C, novolog, levemir, culturelle, levaquin, protonix , vitamin A&D, zinc Pertinent Labs 10/19 Na 151, K 4.3, Cl 121, BUN 57, Cr 1.8, Glucose 350, POC 340, Ca 8.5, Alb 2.7 10/20 POC 275-401 Nutritional Hx/Data Height 1.73 m Height (Calculated Centimeters) 172.7 Current Weight (lbs) 64.41 kg Weight (Calculated Kilograms) 64.4 Weight (Calculated Grams) 88201.1 [place] Body Weight 112 % [place] Body Weight 127 Body Mass Index (BMI) 21.6 Weight Status Overweight GI Symptoms GI Symptoms Diarrhea Last BM no record Difficult in: None Skin Integrity/Comment: intact Estimated Nutritional Goals BEE in Kcals: Adj wt of IBW Calories/Kcals/Kg 25-30 Kcals Calculated 1559-6829 Protein: Adj wt of IBW Protein g/k Protein Calculated 54 Fluid: ml 1350-1620ml (1ml/kcal) Nutritional Problem 1. Problem Problem altered nutrition related lab values Etiology hx of dm Signs/Symptoms: Glucose 350, POC 275-401 Malnutrition Alert Protein-Calorie Malnutrition N/A Is there a minimum of two criteria No selected? Query Text:Check all the applicable criteria. A minimum of two criteria are recommended for diagnosis of either severe or non-severe malnutrition. Intervention/Recommendation Comments 1. Continue with current TF regimen considering high residual this morning. Check residual q4hr. Hold TF 1hr if residual >200ml. 2. adjust insulin for optimal glycemic control per MD order. 3. Monitor TF rate, tolerance, wt weekly, skin integrity and labs 4. F/U as high risk in 2-3 days, 2/2-2/3 Expected Outcomes/Goals Expected Outcomes/Goals 1. Pt to meet at least 75% of nutritional needs via nutrition support with tolerence. 2. Wt stability, skin to remain intact, labs to improve
[2017-10-25] MEDS: Acetaminophen 500 MG TAB PO PRN ×2 (11:18→20:42)
[2017-10-25] MEDS: Levofloxacin 500mg/100mL 500 MG/100 ML BAG IV SCH (20:43)
[2017-10-26] MEDS: INSULIN ASPART SLIDING SCALE 100 UNITS/ML UNIT SUBQ SCH ×4 (00:06→17:43)
--- NOTE | 2017-10-26 08:45 | Infectious Disease Prog Note ---
Infectious Disease Subjective - Review of Systems Service Date: 10/26/17 Subjective: doing well. had developed fever. Infectious Disease Objective - Results Result Diagrams: 10/26/17 08:50 10/25/17 05:25 Recent Labs: Laboratory Last Values WBC 15.8 Th/cmm (4.8-10.8) H D 10/25/17 05:25 RBC 2.80 Mil/cmm (3.80-5.20) L 10/25/17 05:25 Hgb 8.5 gm/dL (12-16) L 10/25/17 05:25 Hct 25.3 % (41.0-60) L 10/25/17 05:25 MCV 90.3 fl (81-100) 10/25/17 05:25 MCH 30.2 pg (27.0-31.0) 10/25/17 05:25 MCHC Differential 33.5 pg (28.0-36.0) 10/25/17 05:25 RDW 15.4 % (11.5-20.0) 10/25/17 05:25 Plt Count 267 Th/cmm (150-400) D 10/25/17 05:25 MPV 11.1 fl 10/25/17 05:25 Neutrophils % 76.4 % (40.0-80.0) 10/23/17 07:50 Band Neutrophils % 10 % (0-10) 10/25/17 05:25 Lymphocytes % 16.8 % (20.0-50.0) L 10/23/17 07:50 Monocytes % 5.9 % (2.0-10.0) 10/23/17 07:50 Eosinophils % 0.5 % (0.0-5.0) 10/23/17 07:50 Basophils % 0.4 % (0.0-2.0) 10/23/17 07:50 Neutrophils (Manual) 81 % (40-80) H 10/25/17 05:25 Lymphocytes 5 % (20-50) L 10/25/17 05:25 Monocytes 3 % (2-10) 10/25/17 05:25 Eosinophils 1 % (0-5) 10/25/17 05:25 Basophils 0 % (0-3) 10/19/17 20:32 Platelet Estimate ADEQUATE (NORMAL) 10/19/17 20:32 Platelet Morphology NORMAL (NORMAL) 10/19/17 20:32 RBC Morph Micro Appear NORMAL (NORMAL) 10/19/17 20:32 Sodium 143 mEq/L (136-145) 10/25/17 05:25 Potassium 4.4 mEq/L (3.5-5.1) 10/25/17 05:25 Chloride 111 mEq/L (98-107) H 10/25/17 05:25 Carbon Dioxide 22.3 mEq/L (21.0-31.0) 10/25/17 05:25 Anion Gap 14.1 (7.0-16.0) 10/25/17 05:25 BUN 33 mg/dL (7-25) H 10/25/17 05:25 Creatinine 1.3 mg/dL (0.6-1.2) H 10/25/17 05:25 Est GFR ( Amer) TNP 10/25/17 05:25 Est GFR (Non-Af Amer) TNP 10/25/17 05:25 BUN/Creatinine Ratio 25.4 10/25/17 05:25 Glucose 225 mg/dL (70-105) H 10/25/17 05:25 POC Glucose 224 MG/DL (70 - 105) H 10/26/17 06:07 Hemoglobin A1c % 8.5 % (4.0-6.0) H 10/19/17 20:32 Whole Bld Lactic Acid 0.88 mmol/L (0.60-1.99) 10/21/17 07:40 Calcium 7.7 mg/dL (8.6-10.3) L 10/25/17 05:25 Total Bilirubin 0.4 mg/dL (0.3-1.0) 10/19/17 20:32 AST 24 U/L (13-39) 10/19/17 20:32 ALT 10 U/L (7-52) 10/19/17 20:32 Alkaline Phosphatase 85 U/L (34-104) 10/19/17 20:32 Total Protein 5.9 gm/dL (6.0-8.3) L 10/19/17 20:32 Albumin 2.7 gm/dL (3.7-5.3) L 10/19/17 20:32 Globulin 3.2 gm/dL 10/19/17 20:32 Albumin/Globulin Ratio 0.8 (1.0-1.8) L 10/19/17 20:32 Urine Source CATH 10/20/17 03:50 Urine Color YELLOW 10/20/17 03:50 Urine Clarity HAZY (CLEAR) 10/20/17 03:50 Urine pH 6.0 (4.6 - 8.0) 10/20/17 03:50 Ur Specific [place] 1.015 (1.005-1.030) 10/20/17 03:50 Urine Protein 100 mg/dL (NEGATIVE) H 10/20/17 03:50 Urine Glucose (UA) >=1000 mg/dL (NEGATIVE) H 10/20/17 03:50 Urine Ketones NEGATIVE mg/dL (NEGATIVE) 10/20/17 03:50 Urine Blood LARGE (NEGATIVE) H 10/20/17 03:50 Urine Nitrate NEGATIVE (NEGATIVE) 10/20/17 03:50 Urine Bilirubin NEGATIVE (NEGATIVE) 10/20/17 03:50 Urine Urobilinogen 0.2 E.U./dL (0.2 - 1.0) 10/20/17 03:50 Ur Leukocyte Esterase SMALL (NEGATIVE) H 10/20/17 03:50 Urine RBC 5-10 /hpf (0-5) H 10/20/17 03:50 Urine WBC 50-100 /hpf (0-5) H 10/20/17 03:50 Ur Epithelial Cells MODERATE /lpf (FEW) 10/20/17 03:50 Urine Bacteria MODERATE /hpf (NONE SEEN) H 10/20/17 03:50 - Physical Exam Vitals and I&O: Vital Signs Temp 99.1 F 10/26/17 04:00 Pulse 85 10/26/17 08:21 Resp 22 10/26/17 08:36 BP 141/66 10/26/17 04:00 Pulse Ox 98 10/26/17 08:21 Intake & Output 10/25/17 10/26/17 10/26/17 18:59 06:59 18:59 Intake Total 1661.667 580 Output Total 1650 975 Balance 11.667 -395 Weight (lbs) 60.781 kg 60.781 kg Intake: Intake, IV Amount 881.667 100 Levofloxacin 500mg/100mL 100 500 mg In 100 ml @ 100 mls/hr IV Q24HR [facility] Rx#: [id number] Sodium Chloride 0.45% 1, 881.667 0 000 ml @ 50 mls/hr IV . Q20H [facility] Rx#:[id number] Tube Feeding 480 480 Other 300 Output: Urine 1650 975 Other: # Bowel Movements 1 0 Active Medications: Current Medications Acetaminophen (Tylenol Extra Strength) 1,000 mg PO Q4HR PRN PRN Reason: MOD PAIN Stop: 12/18/17 21:29 Last Admin: 10/25/17 20:42 Dose: 1,000 mg Acetaminophen (Tylenol) 650 mg PO Q4HR PRN PRN Reason: MILD PAIN OR TEMP >101F Stop: 12/18/17 21:29 Last Admin: 10/23/17 17:38 Dose: 650 mg Amlodipine Besylate (Norvasc) 5 mg GT DAILY [facility] Stop: 12/19/17 08:59 Last Admin: 10/25/17 09:25 Dose: 5 mg Ascorbic Acid (Vitamin C) 500 mg GT DAILY [facility] Stop: 12/19/17 08:59 Last Admin: 10/25/17 09:24 Dose: 500 mg Bisacodyl (Dulcolax 10 Mg Supp) 10 mg RC DAILY PRN PRN Reason: Constipation Stop: 12/18/17 21:29 Calamine (Calamine) 1 appl TP DAILY [facility] Stop: 12/19/17 08:59 Last Admin: 10/25/17 09:24 Dose: 1 appl Hydralazine HCl (Apresoline) 50 mg GT TID [facility] Stop: 12/19/17 08:59 Last Admin: 10/25/17 20:44 Dose: 50 mg Levofloxacin (Levaquin Pb) 500 mg in 100 mls @ 100 mls/hr IV Q24HR [facility] Stop: 12/18/17 19:59 Last Infusion: 10/25/17 21:43 Dose: Infused Sodium Chloride (Nacl 0.45%) 1,000 mls @ 50 mls/hr IV .Q20H [facility] Stop: 12/21/17 19:02 Last Infusion: 10/26/17 05:39 Dose: 50 mls/hr Insulin Aspart (Novolog Insulin Sliding Scale) 0 units SUBQ Q6HR [facility]EENA PRN Reason: Protocol Stop: 12/24/17 06:57 Last Admin: 10/26/17 06:34 Dose: 4 units Insulin Detemir (Levemir Insulin) 30 units SUBQ Q12HR [facility] PRN Reason: Protocol Stop: 12/24/17 00:00 Last Admin: 10/25/17 20:45 Dose: 30 units Lactobacillus Rhamnosus (Culturelle 15b) 1 each GT DAILY [facility] Stop: 12/20/17 08:59 Last Admin: 10/25/17 09:24 Dose: 1 each Magnesium Hydroxide (Milk Of Magnesia) 30 ml GT HS PRN PRN Reason: Constipation Stop: 12/18/17 21:29 Memantine (Namenda) 10 mg GT BID [facility] Stop: 12/19/17 08:59 Last Admin: 10/25/17 16:53 Dose: 10 mg Metronidazole (Flagyl) 500 mg PO TID [facility] Stop: 10/26/17 21:01 Last Admin: 10/25/17 20:44 Dose: 500 mg Miscellaneous (Probiotic Screen) 1 ea MC PRN PRN PRN Reason: PROTOCOL Stop: 12/19/17 15:39 Pantoprazole Sodium (Protonix) 40 mg IVP DAILY [facility] Stop: 12/19/17 08:59 Last Admin: 10/25/17 09:24 Dose: 40 mg Senna (Senna) 17.2 mg GT HS [facility] Stop: 12/19/17 20:59 Last Admin: 10/25/17 20:44 Dose: 17.2 mg Sodium Phosphate (Fleet Enema) 135 ml RC Q48H PRN PRN Reason: Constipation Stop: 12/18/17 21:29 Vitamin A (Vitamin A & D) 5 gm TP DAILY [facility] Stop: 12/19/17 08:59 Last Admin: 10/25/17 09:23 Dose: 5 gm Zinc Sulfate (Zinc Sulfate) 220 mg GT DAILY [facility] Stop: 12/19/17 08:59 Last Admin: 10/25/17 09:24 Dose: 220 mg General: no acute distress, well developed, well nourished HEENT: atraumatic, normocephalic, PERRLA Neck: supple, no thyromegaly Cardiovascular: S1S2, regular Lungs: clear to auscultation bilaterally, clear to percussion Abdomen: soft, no tender, no distended, no mass Extremities: other (b/l BKA.), no cyanosis, no clubbing - Procedures Procedures: Procedures Procedure Code Date CHANGE FEEDING DEVICE IN UP INTEST TRACT, TOBACCO DRUMMER APPROACH 3Y31BPC 09/13/17 Infectious Disease Assmt/Plan - Problem List Patient Problems: All Active Problems ELEVATED BLOOD GLUCOSE (Acute) - Assessment Assessment: 1. Fever. 2. C diff colitis. 3. UTI - candiduria. - Plan Plan: repeat UA Change levaquin to diflucan po and flagyl. Nutritional Asmnt/Malnutr-PDOC - Dietary Evaluation Malnutrition Findings (Please click <Entered> for more info): Nutritional Asmnt/Malnutrition Start: 10/20/17 17: 24 Text: Status: Complete Freq: Document 10/20/17 17:24 [facility] (Rec: 10/20/17 17:46 JOURDAN GEO-[email or web address]) Nutritional Asmnt/Malnutrition Patient General Information Nutritional Screening High Risk Consult Diagnosis urosepsis, c diff Pertinent Medical Hx/Surgical Hx bilateral AKA, DM, blindness, NGTube, dysphagia, COPD, HTN, dementia, neurogenic bladder, osteomyelitis, peristent vegetative status, atherosclerosis of aorta Subjective Information Consult received for brade score of 13, BS 350. Pt seen lying in bed at time of visit. Spoke with RN, RN reported pt had residual > 200ml this morning, TF was hold for 2.5 hr. Rechecked, residual 0ml, restarted TF. Adj BMI considering bilateral AKA BMI=26.8, overweight Current Diet Order/ Nutrition Support Diabetisource 40ml/hr continuous, providing 1152kcal , 58g protein Pertinent Medications vitamin C, novolog, levemir, culturelle, levaquin, protonix , vitamin A&D, zinc Pertinent Labs 10/19 Na 151, K 4.3, Cl 121, BUN 57, Cr 1.8, Glucose 350, POC 340, Ca 8.5, Alb 2.7 10/20 POC 275-401 Nutritional Hx/Data Height 1.73 m Height (Calculated Centimeters) 172.7 Current Weight (lbs) 64.41 kg Weight (Calculated Kilograms) 64.4 Weight (Calculated Grams) 49121.1 [place] Body Weight 112 % [place] Body Weight 127 Body Mass Index (BMI) 21.6 Weight Status Overweight GI Symptoms GI Symptoms Diarrhea Last BM no record Difficult in: None Skin Integrity/Comment: intact Estimated Nutritional Goals BEE in Kcals: Adj wt of IBW Calories/Kcals/Kg 25-30 Kcals Calculated 7036-3691 Protein: Adj wt of IBW Protein g/k Protein Calculated 54 Fluid: ml 1350-1620ml (1ml/kcal) Nutritional Problem 1. Problem Problem altered nutrition related lab values Etiology hx of dm Signs/Symptoms: Glucose 350, POC 275-401 Malnutrition Alert Protein-Calorie Malnutrition N/A Is there a minimum of two criteria No selected? Query Text:Check all the applicable criteria. A minimum of two criteria are recommended for diagnosis of either severe or non-severe malnutrition. Intervention/Recommendation Comments 1. Continue with current TF regimen considering high residual this morning. Check residual q4hr. Hold TF 1hr if residual >200ml. 2. adjust insulin for optimal glycemic control per MD order. 3. Monitor TF rate, tolerance, wt weekly, skin integrity and labs 4. F/U as high risk in 2-3 days, 2/2-2/3 Expected Outcomes/Goals Expected Outcomes/Goals 1. Pt to meet at least 75% of nutritional needs via nutrition support with tolerence. 2. Wt stability, skin to remain intact, labs to improve
[2017-10-26 09:06] LABS: % BASOPHILS 0.5 % (0.0-2.0); % LYMPHOCYTES 10.7 % (20.0-50.0); % MONOCYTES 4.7 % (2.0-10.0); % NEUTROPHILS 83.1 % (40.0-80.0); BASOPHILE ABSOLUTE 0.1 Th/cumm (0-0.2); EOSINOPHILE ABSOLUTE 0.1 Th/cmm (0.1-0.4); HEMATOCRIT 23.6 % (41.0-60); LYMPHOCYTE ABSOLUTE 1.5 Th/cmm (1.5-3.0); MEAN CELL VOLUME 90.6 fl (81-100); MEAN CORPUSCULAR HEMOGLOBIN 30.2 pg (27.0-31.0); MEAN CORPUSCULAR HGB CONC 33.3 pg (28.0-36.0); MEAN PLATELET VOLUME 9.9 fl; MONOCYTE ABSOLUTE 0.6 Th/cmm (0.3-1.0); NEUTROPHILE ABSOLUTE 11.5 Th/cmm (1.8-8.0); RED BLOOD COUNT 2.61 Mil/cmm (3.80-5.20); RED CELL DISTRIBUTION WIDTH 15.6 % (11.5-20.0)
[2017-10-26 09:08] LABS: WHITE BLOOD COUNT 13.8 Th/cmm (4.8-10.8)
[2017-10-26 09:18] LABS: PLATELET COUNT 324 Th/cmm (150-400)
[2017-10-26 09:19] LABS: HEMOGLOBIN 7.9 gm/dL (12-16)
[2017-10-26] MEDS: Vitamin A/Vitamin D 5 gm Packet TP SCH (10:08)
[2017-10-26] MEDS: Multivitamin w/ Minerals Tab PO SCH (10:08)
[2017-10-26] MEDS: CALAMINE TP SCH (10:08)
[2017-10-26] MEDS: Lactobacillus Rhamnosus GG 15 Billion CFU CAP.SPRINK GT SCH (10:09)
[2017-10-26] MEDS: Insulin Detemir 100 units/mL 10mL Vial SUBQ SCH ×2 (10:10→22:02)
--- NOTE | 2017-10-26 12:26 | Internal Medicine Prog Note ---
Internal Medicine Subjective - Subjective Service Date: 10/26/17 (noted with snourous respirations) Patient seen and examined:: with staff Patient is:: awake, non-verbal Internal Medicine Objective - Results Result Diagrams: 10/26/17 08:50 10/25/17 05:25 Recent Labs: Laboratory Last Values WBC 13.8 Th/cmm (4.8-10.8) H 10/26/17 08:50 RBC 2.61 Mil/cmm (3.80-5.20) L 10/26/17 08:50 Hgb 7.9 gm/dL (12-16) L* 10/26/17 08:50 Hct 23.6 % (41.0-60) L 10/26/17 08:50 MCV 90.6 fl (81-100) 10/26/17 08:50 MCH 30.2 pg (27.0-31.0) 10/26/17 08:50 MCHC Differential 33.3 pg (28.0-36.0) 10/26/17 08:50 RDW 15.6 % (11.5-20.0) 10/26/17 08:50 Plt Count 324 Th/cmm (150-400) D 10/26/17 08:50 MPV 9.9 fl 10/26/17 08:50 Neutrophils % 83.1 % (40.0-80.0) H 10/26/17 08:50 Band Neutrophils % 10 % (0-10) 10/25/17 05:25 Lymphocytes % 10.7 % (20.0-50.0) L 10/26/17 08:50 Monocytes % 4.7 % (2.0-10.0) 10/26/17 08:50 Eosinophils % 1.0 % (0.0-5.0) 10/26/17 08:50 Basophils % 0.5 % (0.0-2.0) 10/26/17 08:50 Neutrophils (Manual) 81 % (40-80) H 10/25/17 05:25 Lymphocytes 5 % (20-50) L 10/25/17 05:25 Monocytes 3 % (2-10) 10/25/17 05:25 Eosinophils 1 % (0-5) 10/25/17 05:25 Basophils 0 % (0-3) 10/19/17 20:32 Platelet Estimate ADEQUATE (NORMAL) 10/19/17 20:32 Platelet Morphology NORMAL (NORMAL) 10/19/17 20:32 RBC Morph Micro Appear NORMAL (NORMAL) 10/19/17 20:32 Sodium 143 mEq/L (136-145) 10/25/17 05:25 Potassium 4.4 mEq/L (3.5-5.1) 10/25/17 05:25 Chloride 111 mEq/L (98-107) H 10/25/17 05:25 Carbon Dioxide 22.3 mEq/L (21.0-31.0) 10/25/17 05:25 Anion Gap 14.1 (7.0-16.0) 10/25/17 05:25 BUN 33 mg/dL (7-25) H 10/25/17 05:25 Creatinine 1.3 mg/dL (0.6-1.2) H 10/25/17 05:25 Est GFR ( Amer) TNP 10/25/17 05:25 Est GFR (Non-Af Amer) TNP 10/25/17 05:25 BUN/Creatinine Ratio 25.4 10/25/17 05:25 Glucose 225 mg/dL (70-105) H 10/25/17 05:25 POC Glucose 261 MG/DL (70 - 105) H 10/26/17 12:01 Hemoglobin A1c % 8.5 % (4.0-6.0) H 10/19/17 20:32 Whole Bld Lactic Acid 0.88 mmol/L (0.60-1.99) 10/21/17 07:40 Calcium 7.7 mg/dL (8.6-10.3) L 10/25/17 05:25 Total Bilirubin 0.4 mg/dL (0.3-1.0) 10/19/17 20:32 AST 24 U/L (13-39) 10/19/17 20:32 ALT 10 U/L (7-52) 10/19/17 20:32 Alkaline Phosphatase 85 U/L (34-104) 10/19/17 20:32 Total Protein 5.9 gm/dL (6.0-8.3) L 10/19/17 20:32 Albumin 2.7 gm/dL (3.7-5.3) L 10/19/17 20:32 Globulin 3.2 gm/dL 10/19/17 20:32 Albumin/Globulin Ratio 0.8 (1.0-1.8) L 10/19/17 20:32 Urine Source CATH 10/20/17 03:50 Urine Color YELLOW 10/20/17 03:50 Urine Clarity HAZY (CLEAR) 10/20/17 03:50 Urine pH 6.0 (4.6 - 8.0) 10/20/17 03:50 Ur Specific [place] 1.015 (1.005-1.030) 10/20/17 03:50 Urine Protein 100 mg/dL (NEGATIVE) H 10/20/17 03:50 Urine Glucose (UA) >=1000 mg/dL (NEGATIVE) H 10/20/17 03:50 Urine Ketones NEGATIVE mg/dL (NEGATIVE) 10/20/17 03:50 Urine Blood LARGE (NEGATIVE) H 10/20/17 03:50 Urine Nitrate NEGATIVE (NEGATIVE) 10/20/17 03:50 Urine Bilirubin NEGATIVE (NEGATIVE) 10/20/17 03:50 Urine Urobilinogen 0.2 E.U./dL (0.2 - 1.0) 10/20/17 03:50 Ur Leukocyte Esterase SMALL (NEGATIVE) H 10/20/17 03:50 Urine RBC 5-10 /hpf (0-5) H 10/20/17 03:50 Urine WBC 50-100 /hpf (0-5) H 10/20/17 03:50 Ur Epithelial Cells MODERATE /lpf (FEW) 10/20/17 03:50 Urine Bacteria MODERATE /hpf (NONE SEEN) H 10/20/17 03:50 - Physical Exam Vitals and I&O: Vital Signs Temp 98.2 F 10/26/17 08:00 Pulse 96 10/26/17 10:09 Resp 22 10/26/17 08:36 BP 151/72 10/26/17 10:09 Pulse Ox 98 10/26/17 08:21 Intake & Output 10/25/17 10/26/17 10/26/17 18:59 06:59 18:59 Intake Total 1661.667 580 Output Total 1650 975 Balance 11.667 -395 Weight (lbs) 134 lb 134 lb Intake: Intake, IV Amount 881.667 100 Levofloxacin 500mg/100mL 100 500 mg In 100 ml @ 100 mls/hr IV Q24HR [facility] Rx#: [id number] Sodium Chloride 0.45% 1, 881.667 0 000 ml @ 50 mls/hr IV . Q20H [facility] Rx#:[id number] Tube Feeding 480 480 Other 300 Output: Urine 1650 975 Other: # Bowel Movements 1 0 Active Medications: Current Medications Acetaminophen (Tylenol Extra Strength) 1,000 mg PO Q4HR PRN PRN Reason: MOD PAIN Stop: 12/18/17 21:29 Last Admin: 10/25/17 20:42 Dose: 1,000 mg Acetaminophen (Tylenol) 650 mg PO Q4HR PRN PRN Reason: MILD PAIN OR TEMP >101F Stop: 12/18/17 21:29 Last Admin: 10/26/17 12:02 Dose: 650 mg Amlodipine Besylate (Norvasc) 5 mg GT DAILY [facility] Stop: 12/19/17 08:59 Last Admin: 10/26/17 10:09 Dose: 5 mg Ascorbic Acid (Vitamin C) 500 mg GT DAILY [facility] Stop: 12/19/17 08:59 Last Admin: 10/26/17 10:09 Dose: 500 mg Bisacodyl (Dulcolax 10 Mg Supp) 10 mg RC DAILY PRN PRN Reason: Constipation Stop: 12/18/17 21:29 Calamine (Calamine) 1 appl TP DAILY [facility] Stop: 12/19/17 08:59 Last Admin: 10/26/17 10:08 Dose: 1 appl Fluconazole (Diflucan) 100 mg PO DAILY [facility] Stop: 12/25/17 09:59 Last Admin: 10/26/17 12:02 Dose: 100 mg Hydralazine HCl (Apresoline) 50 mg GT TID [facility] Stop: 12/19/17 08:59 Last Admin: 10/26/17 10:08 Dose: 50 mg Sodium Chloride (Nacl 0.45%) 1,000 mls @ 50 mls/hr IV .Q20H [facility] Stop: 12/21/17 19:02 Last Infusion: 10/26/17 05:39 Dose: 50 mls/hr Insulin Aspart (Novolog Insulin Sliding Scale) 0 units SUBQ Q6HR [facility] PRN Reason: Protocol Stop: 12/24/17 06:57 Last Admin: 10/26/17 06:34 Dose: 4 units Insulin Detemir (Levemir Insulin) 30 units SUBQ Q12HR [facility] PRN Reason: Protocol Stop: 12/24/17 00:00 Last Admin: 10/26/17 10:10 Dose: Not Given Lactobacillus Rhamnosus (Culturelle 15b) 1 each GT DAILY [facility] Stop: 12/20/17 08:59 Last Admin: 10/26/17 10:09 Dose: 1 each Magnesium Hydroxide (Milk Of Magnesia) 30 ml GT HS PRN PRN Reason: Constipation Stop: 12/18/17 21:29 Memantine (Namenda) 10 mg GT BID [facility] Stop: 12/19/17 08:59 Last Admin: 10/26/17 10:09 Dose: 10 mg Metronidazole (Flagyl) 500 mg PO TID [facility] Stop: 10/26/17 21:01 Last Admin: 10/26/17 10:08 Dose: 500 mg Miscellaneous (Probiotic Screen) 1 ea MC PRN PRN PRN Reason: PROTOCOL Stop: 12/19/17 15:39 Pantoprazole Sodium (Protonix) 40 mg IVP DAILY [facility] Stop: 12/19/17 08:59 Last Admin: 10/26/17 10:08 Dose: 40 mg Senna (Senna) 17.2 mg GT HS [facility] Stop: 12/19/17 20:59 Last Admin: 10/25/17 20:44 Dose: 17.2 mg Sodium Phosphate (Fleet Enema) 135 ml RC Q48H PRN PRN Reason: Constipation Stop: 12/18/17 21:29 Vitamin A (Vitamin A & D) 5 gm TP DAILY [facility] Stop: 12/19/17 08:59 Last Admin: 10/26/17 10:08 Dose: 5 gm Zinc Sulfate (Zinc Sulfate) 220 mg GT DAILY [facility] Stop: 12/19/17 08:59 Last Admin: 10/26/17 10:08 Dose: 220 mg General: weak HEENT: NC/AT, PERRLA Neck: Supple Cardiovascular: without murmur Abdomen: soft, non-tender, non-distended - Procedures Procedures: Procedures Procedure Code Date CHANGE FEEDING DEVICE IN UP INTEST TRACT, BLOOD BANK MANAGER APPROACH [id number] 09/13/17 Internal Medicine Assmt/Plan - Assessment Assessment: c diff colitis acute uti with proteus mirabilis congestion hyperglycemia copd dementia neurogenic bladder dysphagia htn - Plan Plan: hold discharge ABG NOW lasix 40mg x1 follow up labs in am inhalation treatments RT to suction patient aspiration precautions continue current orders Nutritional Asmnt/Malnutr-PDOC - Dietary Evaluation Malnutrition Findings (Please click <Entered> for more info): Nutritional Asmnt/Malnutrition Start: 10/20/17 17: 24 Text: Status: Complete Freq: Document 10/20/17 17:24 ZOËIveth (Rec: 10/20/17 17:46 LCJOURDAN [email or web address]) Nutritional Asmnt/Malnutrition Patient General Information Nutritional Screening High Risk Consult Diagnosis urosepsis, c diff Pertinent Medical Hx/Surgical Hx bilateral AKA, DM, blindness, NGTube, dysphagia, COPD, HTN, dementia, neurogenic bladder, osteomyelitis, peristent vegetative status, atherosclerosis of aorta Subjective Information Consult received for brade score of 13, BS 350. Pt seen lying in bed at time of visit. Spoke with RN, RN reported pt had residual > 200ml this morning, TF was hold for 2.5 hr. Rechecked, residual 0ml, restarted TF. Adj BMI considering bilateral AKA BMI=26.8, overweight Current Diet Order/ Nutrition Support Diabetisource 40ml/hr continuous, providing 1152kcal , 58g protein Pertinent Medications vitamin C, novolog, levemir, culturelle, levaquin, protonix , vitamin A&D, zinc Pertinent Labs 10/19 Na 151, K 4.3, Cl 121, BUN 57, Cr 1.8, Glucose 350, POC 340, Ca 8.5, Alb 2.7 10/20 POC 275-401 Nutritional Hx/Data Height 5 ft 8 in Height (Calculated Centimeters) 172.7 Current Weight (lbs) 142 lb Weight (Calculated Kilograms) 64.4 Weight (Calculated Grams) 98239.1 [place] Body Weight 112 % [place] Body Weight 127 Body Mass Index (BMI) 21.6 Weight Status Overweight GI Symptoms GI Symptoms Diarrhea Last BM no record Difficult in: None Skin Integrity/Comment: intact Estimated Nutritional Goals BEE in Kcals: Adj wt of IBW Calories/Kcals/Kg 25-30 Kcals Calculated 7350-6776 Protein: Adj wt of IBW Protein g/k Protein Calculated 54 Fluid: ml 1350-1620ml (1ml/kcal) Nutritional Problem 1. Problem Problem altered nutrition related lab values Etiology hx of dm Signs/Symptoms: Glucose 350, POC 275-401 Malnutrition Alert Protein-Calorie Malnutrition N/A Is there a minimum of two criteria No selected? Query Text:Check all the applicable criteria. A minimum of two criteria are recommended for diagnosis of either severe or non-severe malnutrition. Intervention/Recommendation Comments 1. Continue with current TF regimen considering high residual this morning. Check residual q4hr. Hold TF 1hr if residual >200ml. 2. adjust insulin for optimal glycemic control per MD order. 3. Monitor TF rate, tolerance, wt weekly, skin integrity and labs 4. F/U as high risk in 2-3 days, 2/2-2/3 Expected Outcomes/Goals Expected Outcomes/Goals 1. Pt to meet at least 75% of nutritional needs via nutrition support with tolerence. 2. Wt stability, skin to remain intact, labs to improve
[2017-10-26 12:48] LABS: ALLEN TEST Positive; pH 7.42 (7.35-7.45)
--- NOTE | 2017-10-26 13:57 | Diagnostic Imaging Report ---
CHEST X-RAY: AP view INDICATION: Respiratory distress COMPARISON: 10/22/2017 FINDINGS: Left-sided central line is stable. Low lung volume are seen with improving left basal density. Heart size is borderline prominent. IMPRESSION: Low lung volume improving left basal density which may represent improving infiltrate in this region. There may be a trace left effusion.
--- NOTE | 2017-10-26 23:07 | Consultation ---
DATE OF CONSULTATION: REFERRING PHYSICIAN: Griselda Castaneda M.D. Thank you very much for this consultation. HISTORY OF PRESENT ILLNESS: This is a 71-year-old female who was admitted with sepsis and the patient has underlying history of dementia, assisted resident, debilitated. The patient was having some tachypnea on and off, was diagnosed with UTI and urosepsis, C. diff colitis. The patient was started on antibiotics, nebulizer treatment, oxygen supplementation. This appeared to be doing okay, unable to give any history, but seems to have some shallow breathing and tachypneic at time, but not in acute distress. No increased work of breathing. The patient is on both Flagyl and Levaquin. PAST MEDICAL HISTORY: As above. SOCIAL HISTORY: [facility] resident. REVIEW OF SYSTEMS: unable to obtain PHYSICAL EXAMINATION: GENERAL: The patient is arousable, not in acute distress, not communicative. VITAL SIGNS: Temperature 99.2, pulse 94, respiration is 24, blood pressure 136/59, saturation is 100%. HEENT: Atraumatic, normocephalic. Pupils are equal and reactive to light and accommodation. Ears, nose and throat normal. NECK: Supple. No JVD. CHEST: There is few rhonchi in bases. HEART: Regular rate and rhythm. ABDOMEN: Soft, nontender. EXTREMITIES: No edema. LABORATORY DATA: WBC is 13.8, hemoglobin 7.9, hematocrit 23.6, platelets 324. ABGs: pH 7.42, pCO2 of 40, pO2 of 58, bicarbonate 25. Last sodium was 143, potassium is 4.4, BUN 33, creatinine 1.3. Chest x-ray, possible infiltrate left lower lobe area. UA showed positive for WBCs, blood, protein and leukoesterase. Urine culture showed yeast species. Blood cultures negative x 48 hours. IMPRESSION: This is a 71-year-old female with: 1. Urosepsis. 2. Respiratory failure secondary to sepsis. 3. Weakness, possible early pneumonia as well. PLAN: 1. IV antibiotics. 2. Nebulizer treatment. 3. Oxygen supplementation. Titrate FiO2 as tolerated. Follow up chest x-ray and aspiration precaution. Thank you very much for this consultation. I will follow the patient with you. JOB# [id number] DONALD
[2017-10-27] MEDS: INSULIN ASPART SLIDING SCALE 100 UNITS/ML UNIT SUBQ SCH ×4 (00:52→17:49)
[2017-10-27] MEDS: Albuterol/Ipratropium Neb 3 ML AERS HHN SCH ×4 (01:45→19:51)
[2017-10-27 06:42] LABS: % BASOPHILS 0.4 % (0.0-2.0); % EOSINOPHILS 0.8 % (0.0-5.0); % LYMPHOCYTES 15.3 % (20.0-50.0); % MONOCYTES 5.5 % (2.0-10.0); EOSINOPHILE ABSOLUTE 0.1 Th/cmm (0.1-0.4); HEMATOCRIT 24.6 % (41.0-60); HEMOGLOBIN 8.3 gm/dL (12-16); LYMPHOCYTE ABSOLUTE 1.8 Th/cmm (1.5-3.0); MEAN CELL VOLUME 90.4 fl (81-100); MEAN CORPUSCULAR HEMOGLOBIN 30.5 pg (27.0-31.0); MEAN CORPUSCULAR HGB CONC 33.8 pg (28.0-36.0); MEAN PLATELET VOLUME 10.1 fl; MONOCYTE ABSOLUTE 0.7 Th/cmm (0.3-1.0); NEUTROPHILE ABSOLUTE 9.4 Th/cmm (1.8-8.0); PLATELET COUNT 370 Th/cmm (150-400); RED BLOOD COUNT 2.72 Mil/cmm (3.80-5.20); RED CELL DISTRIBUTION WIDTH 15.4 % (11.5-20.0)
[2017-10-27 07:13] LABS: ANION GAP 13.7 (7.0-16.0); BUN - UREA NITROGEN 37 mg/dL (7-25); CARBON DIOXIDE 25.6 mEq/L (21.0-31.0); CHLORIDE 106 mEq/L (98-107); GLUCOSE 219 mg/dL (70-105); POTASSIUM SERUM 4.3 mEq/L (3.5-5.1); SODIUM SERUM 141 mEq/L (136-145)
[2017-10-27 07:56] LABS: CREATININE - SERUM 1.3 mg/dL (0.6-1.2)
--- NOTE | 2017-10-27 08:31 | Diagnostic Imaging Report ---
Exam: Ultrasound examination deep venous circulation upper extremities. HISTORY: DVT Findings: Real-time ultrasound exam of the upper extremities performed multiple planes utilizing color Doppler technique. The study demonstrates normal compressibility and augmentation of deep venous system throughout. IMPRESSION: No evidence of deep venous thrombosis upper extremities bilaterally.
[2017-10-27] MEDS: Multivitamin w/ Minerals Tab PO SCH (08:52)
[2017-10-27] MEDS: Lactobacillus Rhamnosus GG 15 Billion CFU CAP.SPRINK GT SCH (08:54)
--- NOTE | 2017-10-27 09:03 | Diagnostic Imaging Report ---
Portable chest x-ray HISTORY: Shortness of breath Compared with the prior exam of the brace 2017, there is a poor inspiration. Questionable infiltrate left lower lobe. Follow-up recommended. IMPRESSION: 1. Poor inspiration with questionable infiltrate within the left lower lobe. Follow-up recommended.
[2017-10-27] MEDS: Vitamin A/Vitamin D 5 gm Packet TP SCH (09:12)
[2017-10-27] MEDS: Insulin Detemir 100 units/mL 10mL Vial SUBQ SCH ×2 (09:13→20:57)
--- NOTE | 2017-10-27 09:40 | General Progress Note ---
Subjective - Review of Systems Service Date: 10/27/17 Events since last encounter: l Subjective: awake nonverbal afebrile. no sob Objective - Results Result Diagrams: 10/27/17 06:06 10/27/17 06:06 Recent Labs: Laboratory Last Values WBC 12.0 Th/cmm (4.8-10.8) H 10/27/17 06:06 RBC 2.72 Mil/cmm (3.80-5.20) L 10/27/17 06:06 Hgb 8.3 gm/dL (12-16) L 10/27/17 06:06 Hct 24.6 % (41.0-60) L 10/27/17 06:06 MCV 90.4 fl (81-100) 10/27/17 06:06 MCH 30.5 pg (27.0-31.0) 10/27/17 06:06 MCHC Differential 33.8 pg (28.0-36.0) 10/27/17 06:06 RDW 15.4 % (11.5-20.0) 10/27/17 06:06 Plt Count 370 Th/cmm (150-400) 10/27/17 06:06 MPV 10.1 fl 10/27/17 06:06 Neutrophils % 78.0 % (40.0-80.0) 10/27/17 06:06 Band Neutrophils % 10 % (0-10) 10/25/17 05:25 Lymphocytes % 15.3 % (20.0-50.0) L 10/27/17 06:06 Monocytes % 5.5 % (2.0-10.0) 10/27/17 06:06 Eosinophils % 0.8 % (0.0-5.0) 10/27/17 06:06 Basophils % 0.4 % (0.0-2.0) 10/27/17 06:06 Neutrophils (Manual) 81 % (40-80) H 10/25/17 05:25 Lymphocytes 5 % (20-50) L 10/25/17 05:25 Monocytes 3 % (2-10) 10/25/17 05:25 Eosinophils 1 % (0-5) 10/25/17 05:25 Basophils 0 % (0-3) 10/19/17 20:32 Platelet Estimate ADEQUATE (NORMAL) 10/19/17 20:32 Platelet Morphology NORMAL (NORMAL) 10/19/17 20:32 RBC Morph Micro Appear NORMAL (NORMAL) 10/19/17 20:32 Specimen Source Arterial 10/26/17 12:33 Sample Site Right Radial 10/26/17 12:33 pH 7.42 (7.35-7.45) 10/26/17 12:33 pCO2 40.0 mmHg (35.0-45.0) 10/26/17 12:33 pO2 58.0 mmHg (80.0-100.0) L 10/26/17 12:33 HCO3 25.8 mEq/L (20.0-26.0) 10/26/17 12:33 Base Excess 1.3 mEq/L (-3.0-3.0) 10/26/17 12:33 O2 Saturation 90.0 % (92.0-100.0) L 10/26/17 12:33 Gt Test Positive 10/26/17 12:33 Vent Rate NA 10/26/17 12:33 Inspired O2 36 10/26/17 12:33 Tidal Volume NA 10/26/17 12:33 PEEP NA 10/26/17 12:33 Pressure (ins/psv/peep) NA 10/26/17 12:33 Critical Value LZHANG 10/26/17 12:33 Sodium 141 mEq/L (136-145) 10/27/17 06:06 Potassium 4.3 mEq/L (3.5-5.1) 10/27/17 06:06 Chloride 106 mEq/L (98-107) 10/27/17 06:06 Carbon Dioxide 25.6 mEq/L (21.0-31.0) 10/27/17 06:06 Anion Gap 13.7 (7.0-16.0) 10/27/17 06:06 BUN 37 mg/dL (7-25) H 10/27/17 06:06 Creatinine 1.3 mg/dL (0.6-1.2) H 10/27/17 06:06 Est GFR ( Amer) TNP 10/27/17 06:06 Est GFR (Non-Af Amer) TNP 10/27/17 06:06 BUN/Creatinine Ratio 28.5 10/27/17 06:06 Glucose 219 mg/dL (70-105) H 10/27/17 06:06 POC Glucose 241 MG/DL (70 - 105) H 10/27/17 07:57 Hemoglobin A1c % 8.5 % (4.0-6.0) H 10/19/17 20:32 Whole Bld Lactic Acid 0.88 mmol/L (0.60-1.99) 10/21/17 07:40 Calcium 9.0 mg/dL (8.6-10.3) 10/27/17 06:06 Total Bilirubin 0.4 mg/dL (0.3-1.0) 10/19/17 20:32 AST 24 U/L (13-39) 10/19/17 20:32 ALT 10 U/L (7-52) 10/19/17 20:32 Alkaline Phosphatase 85 U/L (34-104) 10/19/17 20:32 Total Protein 5.9 gm/dL (6.0-8.3) L 10/19/17 20:32 Albumin 2.7 gm/dL (3.7-5.3) L 10/19/17 20:32 Globulin 3.2 gm/dL 10/19/17 20:32 Albumin/Globulin Ratio 0.8 (1.0-1.8) L 10/19/17 20:32 Urine Source CATH 10/20/17 03:50 Urine Color YELLOW 10/20/17 03:50 Urine Clarity HAZY (CLEAR) 10/20/17 03:50 Urine pH 6.0 (4.6 - 8.0) 10/20/17 03:50 Ur Specific [place] 1.015 (1.005-1.030) 10/20/17 03:50 Urine Protein 100 mg/dL (NEGATIVE) H 10/20/17 03:50 Urine Glucose (UA) >=1000 mg/dL (NEGATIVE) H 10/20/17 03:50 Urine Ketones NEGATIVE mg/dL (NEGATIVE) 10/20/17 03:50 Urine Blood LARGE (NEGATIVE) H 10/20/17 03:50 Urine Nitrate NEGATIVE (NEGATIVE) 10/20/17 03:50 Urine Bilirubin NEGATIVE (NEGATIVE) 10/20/17 03:50 Urine Urobilinogen 0.2 E.U./dL (0.2 - 1.0) 10/20/17 03:50 Ur Leukocyte Esterase SMALL (NEGATIVE) H 10/20/17 03:50 Urine RBC 5-10 /hpf (0-5) H 10/20/17 03:50 Urine WBC 50-100 /hpf (0-5) H 10/20/17 03:50 Ur Epithelial Cells MODERATE /lpf (FEW) 10/20/17 03:50 Urine Bacteria MODERATE /hpf (NONE SEEN) H 10/20/17 03:50 - Physical Exam Vitals and I&O: Vital Signs Temp 98.7 F 10/27/17 05:01 Pulse 100 10/27/17 08:53 Resp 24 10/27/17 07:05 BP 122/59 10/27/17 08:53 Pulse Ox 100 10/27/17 07:05 Intake & Output 10/26/17 10/27/17 10/27/17 18:59 06:59 18:59 Intake Total 1103.333 600 Output Total 1200 900 Balance -96.667 -300 Weight (lbs) 60.781 kg 60.781 kg Intake: Intake, IV Amount 623.333 Sodium Chloride 0.45% 1, 623.333 000 ml @ 50 mls/hr IV . Q20H [facility] Rx#:[id number] Tube Feeding 480 480 Other 120 Output: Urine 1200 900 Other: # Bowel Movements 0 Active Medications: Current Medications Acetaminophen (Tylenol Extra Strength) 1,000 mg PO Q4HR PRN PRN Reason: MOD PAIN Stop: 12/18/17 21:29 Last Admin: 10/25/17 20:42 Dose: 1,000 mg Acetaminophen (Tylenol) 650 mg PO Q4HR PRN PRN Reason: MILD PAIN OR TEMP >101F Stop: 12/18/17 21:29 Last Admin: 10/26/17 12:02 Dose: 650 mg Albuterol/Ipratropium (Duoneb Neb) 3 ml HHN Q6HRT [facility] Stop: 12/26/17 00:59 Last Admin: 10/27/17 06:08 Dose: 3 ml Amlodipine Besylate (Norvasc) 5 mg GT DAILY [facility] Stop: 12/19/17 08:59 Last Admin: 10/27/17 08:53 Dose: 5 mg Ascorbic Acid (Vitamin C) 500 mg GT DAILY [facility] Stop: 12/19/17 08:59 Last Admin: 10/27/17 08:54 Dose: 500 mg Bisacodyl (Dulcolax 10 Mg Supp) 10 mg RC DAILY PRN PRN Reason: Constipation Stop: 12/18/17 21:29 Calamine (Calamine) 1 appl TP DAILY [facility] Stop: 12/19/17 08:59 Last Admin: 10/26/17 10:08 Dose: 1 appl Fluconazole (Diflucan) 100 mg PO DAILY [facility] Stop: 12/25/17 09:59 Last Admin: 10/27/17 08:54 Dose: 100 mg Hydralazine HCl (Apresoline) 50 mg GT TID [facility] Stop: 12/19/17 08:59 Last Admin: 10/27/17 08:52 Dose: 50 mg Sodium Chloride (Nacl 0.45%) 1,000 mls @ 50 mls/hr IV .Q20H [facility] Stop: 12/21/17 19:02 Last Infusion: 10/26/17 18:07 Dose: 10 mls/hr Insulin Aspart (Novolog Insulin Sliding Scale) 0 units SUBQ Q6HR [facility] PRN Reason: Protocol Stop: 12/24/17 06:57 Last Admin: 10/27/17 06:51 Dose: 4 units Insulin Detemir (Levemir Insulin) 30 units SUBQ Q12HR [facility] PRN Reason: Protocol Stop: 12/24/17 00:00 Last Admin: 10/27/17 09:13 Dose: 30 units Lactobacillus Rhamnosus (Culturelle 15b) 1 each GT DAILY [facility] Stop: 12/20/17 08:59 Last Admin: 10/27/17 08:54 Dose: 1 each Magnesium Hydroxide (Milk Of Magnesia) 30 ml GT HS PRN PRN Reason: Constipation Stop: 12/18/17 21:29 Memantine (Namenda) 10 mg GT BID [facility] Stop: 12/19/17 08:59 Last Admin: 10/27/17 08:53 Dose: 10 mg Miscellaneous (Probiotic Screen) 1 ea MC PRN PRN PRN Reason: PROTOCOL Stop: 12/19/17 15:39 Pantoprazole Sodium (Protonix) 40 mg IVP DAILY [facility] Stop: 12/19/17 08:59 Last Admin: 10/27/17 08:52 Dose: 40 mg Senna (Senna) 17.2 mg GT HS [facility] Stop: 12/19/17 20:59 Last Admin: 10/26/17 21:45 Dose: 17.2 mg Sodium Phosphate (Fleet Enema) 135 ml RC Q48H PRN PRN Reason: Constipation Stop: 12/18/17 21:29 Vitamin A (Vitamin A & D) 5 gm TP DAILY [facility] Stop: 12/19/17 08:59 Last Admin: 10/27/17 09:12 Dose: 5 gm Zinc Sulfate (Zinc Sulfate) 220 mg GT DAILY [facility] Stop: 12/19/17 08:59 Last Admin: 10/27/17 08:52 Dose: 220 mg HEENT: PERRLA Neck: Supple Cardiovascular: Regular rate Lungs: Clear to auscultation Abdomen: Bowel sounds - Procedures Procedures: Procedures Procedure Code Date CHANGE FEEDING DEVICE IN UP INTEST TRACT, FRETTED INSTRUMENT INSPECTOR APPROACH [id number] 09/13/17 Assessment/Plan - Problem List Patient Problems: All Active Problems ELEVATED BLOOD GLUCOSE (Acute) - Assessment Assessment: 1. Fever. 2. C diff colitis. 3. UTI - candiduria. - Plan Plan: continue ivabx per id continue current orders Nutritional Asmnt/Malnutr-PDOC - Dietary Evaluation Malnutrition Findings (Please click <Entered> for more info): Nutritional Asmnt/Malnutrition Start: 10/20/17 17: 24 Text: Status: Complete Freq: Document 10/20/17 17:24 JOURDAN (Rec: 10/20/17 17:46 [email or web address] Nutritional Asmnt/Malnutrition Patient General Information Nutritional Screening High Risk Consult Diagnosis urosepsis, c diff Pertinent Medical Hx/Surgical Hx bilateral AKA, DM, blindness, NGTube, dysphagia, COPD, HTN, dementia, neurogenic bladder, osteomyelitis, peristent vegetative status, atherosclerosis of aorta Subjective Information Consult received for brade score of 13, BS 350. Pt seen lying in bed at time of visit. Spoke with RN, RN reported pt had residual > 200ml this morning, TF was hold for 2.5 hr. Rechecked, residual 0ml, restarted TF. Adj BMI considering bilateral AKA BMI=26.8, overweight Current Diet Order/ Nutrition Support Diabetisource 40ml/hr continuous, providing 1152kcal , 58g protein Pertinent Medications vitamin C, novolog, levemir, culturelle, levaquin, protonix , vitamin A&D, zinc Pertinent Labs 10/19 Na 151, K 4.3, Cl 121, BUN 57, Cr 1.8, Glucose 350, POC 340, Ca 8.5, Alb 2.7 10/20 POC 275-401 Nutritional Hx/Data Height 1.73 m Height (Calculated Centimeters) 172.7 Current Weight (lbs) 64.41 kg Weight (Calculated Kilograms) 64.4 Weight (Calculated Grams) 53496.1 [place] Body Weight 112 % [place] Body Weight 127 Body Mass Index (BMI) 21.6 Weight Status Overweight GI Symptoms GI Symptoms Diarrhea Last BM no record Difficult in: None Skin Integrity/Comment: intact Estimated Nutritional Goals BEE in Kcals: Adj wt of IBW Calories/Kcals/Kg 25-30 Kcals Calculated 1112-0017 Protein: Adj wt of IBW Protein g/k Protein Calculated 54 Fluid: ml 1350-1620ml (1ml/kcal) Nutritional Problem 1. Problem Problem altered nutrition related lab values Etiology hx of dm Signs/Symptoms: Glucose 350, POC 275-401 Malnutrition Alert Protein-Calorie Malnutrition N/A Is there a minimum of two criteria No selected? Query Text:Check all the applicable criteria. A minimum of two criteria are recommended for diagnosis of either severe or non-severe malnutrition. Intervention/Recommendation Comments 1. Continue with current TF regimen considering high residual this morning. Check residual q4hr. Hold TF 1hr if residual >200ml. 2. adjust insulin for optimal glycemic control per MD order. 3. Monitor TF rate, tolerance, wt weekly, skin integrity and labs 4. F/U as high risk in 2-3 days, 2/2-2/3 Expected Outcomes/Goals Expected Outcomes/Goals 1. Pt to meet at least 75% of nutritional needs via nutrition support with tolerence. 2. Wt stability, skin to remain intact, labs to improve
[2017-10-27] MEDS: CALAMINE TP SCH (10:32)
--- NOTE | 2017-10-27 15:02 | Infectious Disease Prog Note ---
Infectious Disease Subjective - Review of Systems Service Date: 10/27/17 Subjective: doing well. Fever better. Infectious Disease Objective - Results Result Diagrams: 10/27/17 06:06 10/27/17 06:06 Recent Labs: Laboratory Last Values WBC 12.0 Th/cmm (4.8-10.8) H 10/27/17 06:06 RBC 2.72 Mil/cmm (3.80-5.20) L 10/27/17 06:06 Hgb 8.3 gm/dL (12-16) L 10/27/17 06:06 Hct 24.6 % (41.0-60) L 10/27/17 06:06 MCV 90.4 fl (81-100) 10/27/17 06:06 MCH 30.5 pg (27.0-31.0) 10/27/17 06:06 MCHC Differential 33.8 pg (28.0-36.0) 10/27/17 06:06 RDW 15.4 % (11.5-20.0) 10/27/17 06:06 Plt Count 370 Th/cmm (150-400) 10/27/17 06:06 MPV 10.1 fl 10/27/17 06:06 Neutrophils % 78.0 % (40.0-80.0) 10/27/17 06:06 Band Neutrophils % 10 % (0-10) 10/25/17 05:25 Lymphocytes % 15.3 % (20.0-50.0) L 10/27/17 06:06 Monocytes % 5.5 % (2.0-10.0) 10/27/17 06:06 Eosinophils % 0.8 % (0.0-5.0) 10/27/17 06:06 Basophils % 0.4 % (0.0-2.0) 10/27/17 06:06 Neutrophils (Manual) 81 % (40-80) H 10/25/17 05:25 Lymphocytes 5 % (20-50) L 10/25/17 05:25 Monocytes 3 % (2-10) 10/25/17 05:25 Eosinophils 1 % (0-5) 10/25/17 05:25 Basophils 0 % (0-3) 10/19/17 20:32 Platelet Estimate ADEQUATE (NORMAL) 10/19/17 20:32 Platelet Morphology NORMAL (NORMAL) 10/19/17 20:32 RBC Morph Micro Appear NORMAL (NORMAL) 10/19/17 20:32 Specimen Source Arterial 10/26/17 12:33 Sample Site Right Radial 10/26/17 12:33 pH 7.42 (7.35-7.45) 10/26/17 12:33 pCO2 40.0 mmHg (35.0-45.0) 10/26/17 12:33 pO2 58.0 mmHg (80.0-100.0) L 10/26/17 12:33 HCO3 25.8 mEq/L (20.0-26.0) 10/26/17 12:33 Base Excess 1.3 mEq/L (-3.0-3.0) 10/26/17 12:33 O2 Saturation 90.0 % (92.0-100.0) L 10/26/17 12:33 Gt Test Positive 10/26/17 12:33 Vent Rate NA 10/26/17 12:33 Inspired O2 36 10/26/17 12:33 Tidal Volume NA 10/26/17 12:33 PEEP NA 10/26/17 12:33 Pressure (ins/psv/peep) NA 10/26/17 12:33 Critical Value LZHANG 10/26/17 12:33 Sodium 141 mEq/L (136-145) 10/27/17 06:06 Potassium 4.3 mEq/L (3.5-5.1) 10/27/17 06:06 Chloride 106 mEq/L (98-107) 10/27/17 06:06 Carbon Dioxide 25.6 mEq/L (21.0-31.0) 10/27/17 06:06 Anion Gap 13.7 (7.0-16.0) 10/27/17 06:06 BUN 37 mg/dL (7-25) H 10/27/17 06:06 Creatinine 1.3 mg/dL (0.6-1.2) H 10/27/17 06:06 Est GFR ( Amer) TNP 10/27/17 06:06 Est GFR (Non-Af Amer) TNP 10/27/17 06:06 BUN/Creatinine Ratio 28.5 10/27/17 06:06 Glucose 219 mg/dL (70-105) H 10/27/17 06:06 POC Glucose 268 MG/DL (70 - 105) H 10/27/17 12:08 Hemoglobin A1c % 8.5 % (4.0-6.0) H 10/19/17 20:32 Whole Bld Lactic Acid 0.88 mmol/L (0.60-1.99) 10/21/17 07:40 Calcium 9.0 mg/dL (8.6-10.3) 10/27/17 06:06 Total Bilirubin 0.4 mg/dL (0.3-1.0) 10/19/17 20:32 AST 24 U/L (13-39) 10/19/17 20:32 ALT 10 U/L (7-52) 10/19/17 20:32 Alkaline Phosphatase 85 U/L (34-104) 10/19/17 20:32 Total Protein 5.9 gm/dL (6.0-8.3) L 10/19/17 20:32 Albumin 2.7 gm/dL (3.7-5.3) L 10/19/17 20:32 Globulin 3.2 gm/dL 10/19/17 20:32 Albumin/Globulin Ratio 0.8 (1.0-1.8) L 10/19/17 20:32 Urine Source CATH 10/20/17 03:50 Urine Color YELLOW 10/20/17 03:50 Urine Clarity HAZY (CLEAR) 10/20/17 03:50 Urine pH 6.0 (4.6 - 8.0) 10/20/17 03:50 Ur Specific [place] 1.015 (1.005-1.030) 10/20/17 03:50 Urine Protein 100 mg/dL (NEGATIVE) H 10/20/17 03:50 Urine Glucose (UA) >=1000 mg/dL (NEGATIVE) H 10/20/17 03:50 Urine Ketones NEGATIVE mg/dL (NEGATIVE) 10/20/17 03:50 Urine Blood LARGE (NEGATIVE) H 10/20/17 03:50 Urine Nitrate NEGATIVE (NEGATIVE) 10/20/17 03:50 Urine Bilirubin NEGATIVE (NEGATIVE) 10/20/17 03:50 Urine Urobilinogen 0.2 E.U./dL (0.2 - 1.0) 10/20/17 03:50 Ur Leukocyte Esterase SMALL (NEGATIVE) H 10/20/17 03:50 Urine RBC 5-10 /hpf (0-5) H 10/20/17 03:50 Urine WBC 50-100 /hpf (0-5) H 10/20/17 03:50 Ur Epithelial Cells MODERATE /lpf (FEW) 10/20/17 03:50 Urine Bacteria MODERATE /hpf (NONE SEEN) H 10/20/17 03:50 - Physical Exam Vitals and I&O: Vital Signs Temp 99.3 F 10/27/17 12:31 Pulse 68 10/27/17 13:46 Resp 22 10/27/17 14:00 BP 140/68 10/27/17 13:46 Pulse Ox 99 10/27/17 13:27 Intake & Output 10/26/17 10/27/17 10/27/17 18:59 06:59 18:59 Intake Total 1103.333 600 Output Total 1200 900 Balance -96.667 -300 Weight (lbs) 60.781 kg 60.781 kg Intake: Intake, IV Amount 623.333 Sodium Chloride 0.45% 1, 623.333 000 ml @ 50 mls/hr IV . Q20H [facility] Rx#:[id number] Tube Feeding 480 480 Other 120 Output: Urine 1200 900 Other: # Bowel Movements 0 Active Medications: Current Medications Acetaminophen (Tylenol Extra Strength) 1,000 mg PO Q4HR PRN PRN Reason: MOD PAIN Stop: 12/18/17 21:29 Last Admin: 10/25/17 20:42 Dose: 1,000 mg Acetaminophen (Tylenol) 650 mg PO Q4HR PRN PRN Reason: MILD PAIN OR TEMP >101F Stop: 12/18/17 21:29 Last Admin: 10/26/17 12:02 Dose: 650 mg Albuterol/Ipratropium (Duoneb Neb) 3 ml HHN Q6HRT [facility] Stop: 12/26/17 00:59 Last Admin: 10/27/17 13:27 Dose: 3 ml Amlodipine Besylate (Norvasc) 5 mg GT DAILY [facility] Stop: 12/19/17 08:59 Last Admin: 10/27/17 08:53 Dose: 5 mg Ascorbic Acid (Vitamin C) 500 mg GT DAILY [facility] Stop: 12/19/17 08:59 Last Admin: 10/27/17 08:54 Dose: 500 mg Bisacodyl (Dulcolax 10 Mg Supp) 10 mg RC DAILY PRN PRN Reason: Constipation Stop: 12/18/17 21:29 Calamine (Calamine) 1 appl TP DAILY NEENA Stop: 12/19/17 08:59 Last Admin: 10/27/17 10:32 Dose: 1 appl Fluconazole (Diflucan) 100 mg PO DAILY [facility]EENA Stop: 12/25/17 09:59 Last Admin: 10/27/17 08:54 Dose: 100 mg Hydralazine HCl (Apresoline) 50 mg GT TID [facility]EENA Stop: 12/19/17 08:59 Last Admin: 10/27/17 13:46 Dose: 50 mg Sodium Chloride (Nacl 0.45%) 1,000 mls @ 50 mls/hr IV .Q20H [facility]EE[facility] Stop: 12/21/17 19:02 Last Infusion: 10/26/17 18:07 Dose: 10 mls/hr Insulin Aspart (Novolog Insulin Sliding Scale) 0 units SUBQ Q6HR NEENA PRN Reason: Protocol Stop: 12/24/17 06:57 Last Admin: 10/27/17 12:19 Dose: 6 units Insulin Detemir (Levemir Insulin) 30 units SUBQ Q12HR NEENA PRN Reason: Protocol Stop: 12/24/17 00:00 Last Admin: 10/27/17 09:13 Dose: 30 units Lactobacillus Rhamnosus (Culturelle 15b) 1 each GT DAILY NEENA Stop: 12/20/17 08:59 Last Admin: 10/27/17 08:54 Dose: 1 each Magnesium Hydroxide (Milk Of Magnesia) 30 ml GT HS PRN PRN Reason: Constipation Stop: 12/18/17 21:29 Memantine (Namenda) 10 mg GT BID [facility] Stop: 12/19/17 08:59 Last Admin: 10/27/17 08:53 Dose: 10 mg Miscellaneous (Probiotic Screen) 1 ea PRN PRN PRN Reason: PROTOCOL Stop: 12/19/17 15:39 Pantoprazole Sodium (Protonix) 40 mg IVP DAILY [facility] Stop: 12/19/17 08:59 Last Admin: 10/27/17 08:52 Dose: 40 mg Senna (Senna) 17.2 mg GT HS [facility] Stop: 12/19/17 20:59 Last Admin: 10/26/17 21:45 Dose: 17.2 mg Sodium Phosphate (Fleet Enema) 135 ml RC Q48H PRN PRN Reason: Constipation Stop: 12/18/17 21:29 Vitamin A (Vitamin A & D) 5 gm TP DAILY [facility] Stop: 12/19/17 08:59 Last Admin: 10/27/17 09:12 Dose: 5 gm Zinc Sulfate (Zinc Sulfate) 220 mg GT DAILY [facility] Stop: 12/19/17 08:59 Last Admin: 10/27/17 08:52 Dose: 220 mg General: no acute distress, well developed, well nourished HEENT: atraumatic, normocephalic, PERRLA Neck: supple, no thyromegaly Cardiovascular: S1S2, regular Lungs: clear to auscultation bilaterally, clear to percussion Abdomen: soft, no tender, no distended Extremities: no cyanosis Neurological: awake, alert, oriented - Procedures Procedures: Procedures Procedure Code Date CHANGE FEEDING DEVICE IN UP INTEST TRACT, BLOWER INSTALLER APPROACH [id number] 09/13/17 Infectious Disease Assmt/Plan - Problem List Patient Problems: All Active Problems ELEVATED BLOOD GLUCOSE (Acute) - Assessment Assessment: 1. Fever. 2. C diff colitis. 3. UTI - candiduria. - Plan Plan: repeat UA Continue diflucan po and flagyl. Nutritional Asmnt/Malnutr-PDOC - Dietary Evaluation Malnutrition Findings (Please click <Entered> for more info): Nutritional Asmnt/Malnutrition Start: 10/20/17 17: 24 Text: Status: Complete Freq: Document 10/20/17 17:24 JOURDAN (Rec: 10/20/17 17:46 [place] [id number]) Nutritional Asmnt/Malnutrition Patient General Information Nutritional Screening High Risk Consult Diagnosis urosepsis, c diff Pertinent Medical Hx/Surgical Hx bilateral AKA, DM, blindness, NGTube, dysphagia, COPD, HTN, dementia, neurogenic bladder, osteomyelitis, peristent vegetative status, atherosclerosis of aorta Subjective Information Consult received for brade score of 13, BS 350. Pt seen lying in bed at time of visit. Spoke with RN, RN reported pt had residual > 200ml this morning, TF was hold for 2.5 hr. Rechecked, residual 0ml, restarted TF. Adj BMI considering bilateral AKA BMI=26.8, overweight Current Diet Order/ Nutrition Support Diabetisource 40ml/hr continuous, providing 1152kcal , 58g protein Pertinent Medications vitamin C, novolog, levemir, culturelle, levaquin, protonix , vitamin A&D, zinc Pertinent Labs 10/19 Na 151, K 4.3, Cl 121, BUN 57, Cr 1.8, Glucose 350, POC 340, Ca 8.5, Alb 2.7 10/20 POC 275-401 Nutritional Hx/Data Height 1.73 m Height (Calculated Centimeters) 172.7 Current Weight (lbs) 64.41 kg Weight (Calculated Kilograms) 64.4 Weight (Calculated Grams) 00944.1 [place] Body Weight 112 % [place] Body Weight 127 Body Mass Index (BMI) 21.6 Weight Status Overweight GI Symptoms GI Symptoms Diarrhea Last BM no record Difficult in: None Skin Integrity/Comment: intact Estimated Nutritional Goals BEE in Kcals: Adj wt of IBW Calories/Kcals/Kg 25-30 Kcals Calculated 0530-9178 Protein: Adj wt of IBW Protein g/k Protein Calculated 54 Fluid: ml 1350-1620ml (1ml/kcal) Nutritional Problem 1. Problem Problem altered nutrition related lab values Etiology hx of dm Signs/Symptoms: Glucose 350, POC 275-401 Malnutrition Alert Protein-Calorie Malnutrition N/A Is there a minimum of two criteria No selected? Query Text:Check all the applicable criteria. A minimum of two criteria are recommended for diagnosis of either severe or non-severe malnutrition. Intervention/Recommendation Comments 1. Continue with current TF regimen considering high residual this morning. Check residual q4hr. Hold TF 1hr if residual >200ml. 2. adjust insulin for optimal glycemic control per MD order. 3. Monitor TF rate, tolerance, wt weekly, skin integrity and labs 4. F/U as high risk in 2-3 days, 2/2-2/3 Expected Outcomes/Goals Expected Outcomes/Goals 1. Pt to meet at least 75% of nutritional needs via nutrition support with tolerence. 2. Wt stability, skin to remain intact, labs to improve
[2017-10-28] MEDS: INSULIN ASPART SLIDING SCALE 100 UNITS/ML UNIT SUBQ SCH ×4 (00:08→18:01)
[2017-10-28] MEDS: Albuterol/Ipratropium Neb 3 ML AERS HHN SCH ×4 (01:10→19:34)
[2017-10-28] MEDS: Acetaminophen 500 MG TAB PO PRN (06:19)
--- NOTE | 2017-10-28 08:29 | Diagnostic Imaging Report ---
CHEST X-RAY: AP view INDICATION: Shortness of breath COMPARISON: 10/27/17 FINDINGS: Left-sided subclavian central line is stable. Low lung volumes are seen with increased bibasal lung markings. Mild cardiomegaly is noted with atherosclerosis. IMPRESSION: Persistent low lung volumes with increased bibasilar lung markings which may be due to atelectasis versus less likely infiltrates.
--- NOTE | 2017-10-28 08:41 | General Progress Note ---
Subjective - Review of Systems Service Date: 10/28/17 Events since last encounter: in no distress doing better Subjective: patient is now in the icu due to low bp on levophed Objective - Results Result Diagrams: 10/28/17 17:43 10/28/17 17:43 Recent Labs: Laboratory Last Values WBC 12.0 Th/cmm (4.8-10.8) H 10/27/17 06:06 RBC 2.72 Mil/cmm (3.80-5.20) L 10/27/17 06:06 Hgb 8.3 gm/dL (12-16) L 10/27/17 06:06 Hct 24.6 % (41.0-60) L 10/27/17 06:06 MCV 90.4 fl (81-100) 10/27/17 06:06 MCH 30.5 pg (27.0-31.0) 10/27/17 06:06 MCHC Differential 33.8 pg (28.0-36.0) 10/27/17 06:06 RDW 15.4 % (11.5-20.0) 10/27/17 06:06 Plt Count 370 Th/cmm (150-400) 10/27/17 06:06 MPV 10.1 fl 10/27/17 06:06 Neutrophils % 78.0 % (40.0-80.0) 10/27/17 06:06 Band Neutrophils % 10 % (0-10) 10/25/17 05:25 Lymphocytes % 15.3 % (20.0-50.0) L 10/27/17 06:06 Monocytes % 5.5 % (2.0-10.0) 10/27/17 06:06 Eosinophils % 0.8 % (0.0-5.0) 10/27/17 06:06 Basophils % 0.4 % (0.0-2.0) 10/27/17 06:06 Neutrophils (Manual) 81 % (40-80) H 10/25/17 05:25 Lymphocytes 5 % (20-50) L 10/25/17 05:25 Monocytes 3 % (2-10) 10/25/17 05:25 Eosinophils 1 % (0-5) 10/25/17 05:25 Basophils 0 % (0-3) 10/19/17 20:32 Platelet Estimate ADEQUATE (NORMAL) 10/19/17 20:32 Platelet Morphology NORMAL (NORMAL) 10/19/17 20:32 RBC Morph Micro Appear NORMAL (NORMAL) 10/19/17 20:32 Specimen Source Arterial 10/26/17 12:33 Sample Site Right Radial 10/26/17 12:33 pH 7.42 (7.35-7.45) 10/26/17 12:33 pCO2 40.0 mmHg (35.0-45.0) 10/26/17 12:33 pO2 58.0 mmHg (80.0-100.0) L 10/26/17 12:33 HCO3 25.8 mEq/L (20.0-26.0) 10/26/17 12:33 Base Excess 1.3 mEq/L (-3.0-3.0) 10/26/17 12:33 O2 Saturation 90.0 % (92.0-100.0) L 10/26/17 12:33 Gt Test Positive 10/26/17 12:33 Vent Rate NA 10/26/17 12:33 Inspired O2 36 10/26/17 12:33 Tidal Volume NA 10/26/17 12:33 PEEP NA 10/26/17 12:33 Pressure (ins/psv/peep) NA 10/26/17 12:33 Critical Value LZHANG 10/26/17 12:33 Sodium 141 mEq/L (136-145) 10/27/17 06:06 Potassium 4.3 mEq/L (3.5-5.1) 10/27/17 06:06 Chloride 106 mEq/L (98-107) 10/27/17 06:06 Carbon Dioxide 25.6 mEq/L (21.0-31.0) 10/27/17 06:06 Anion Gap 13.7 (7.0-16.0) 10/27/17 06:06 BUN 37 mg/dL (7-25) H 10/27/17 06:06 Creatinine 1.3 mg/dL (0.6-1.2) H 10/27/17 06:06 Est GFR ( Amer) TNP 10/27/17 06:06 Est GFR (Non-Af Amer) TNP 10/27/17 06:06 BUN/Creatinine Ratio 28.5 10/27/17 06:06 Glucose 219 mg/dL (70-105) H 10/27/17 06:06 POC Glucose 262 MG/DL (70 - 105) H 10/28/17 05:48 Hemoglobin A1c % 8.5 % (4.0-6.0) H 10/19/17 20:32 Whole Bld Lactic Acid 0.88 mmol/L (0.60-1.99) 10/21/17 07:40 Calcium 9.0 mg/dL (8.6-10.3) 10/27/17 06:06 Total Bilirubin 0.4 mg/dL (0.3-1.0) 10/19/17 20:32 AST 24 U/L (13-39) 10/19/17 20:32 ALT 10 U/L (7-52) 10/19/17 20:32 Alkaline Phosphatase 85 U/L (34-104) 10/19/17 20:32 Total Protein 5.9 gm/dL (6.0-8.3) L 10/19/17 20:32 Albumin 2.7 gm/dL (3.7-5.3) L 10/19/17 20:32 Globulin 3.2 gm/dL 10/19/17 20:32 Albumin/Globulin Ratio 0.8 (1.0-1.8) L 10/19/17 20:32 Urine Source CATH 10/20/17 03:50 Urine Color YELLOW 10/20/17 03:50 Urine Clarity HAZY (CLEAR) 10/20/17 03:50 Urine pH 6.0 (4.6 - 8.0) 10/20/17 03:50 Ur Specific [place] 1.015 (1.005-1.030) 10/20/17 03:50 Urine Protein 100 mg/dL (NEGATIVE) H 10/20/17 03:50 Urine Glucose (UA) >=1000 mg/dL (NEGATIVE) H 10/20/17 03:50 Urine Ketones NEGATIVE mg/dL (NEGATIVE) 10/20/17 03:50 Urine Blood LARGE (NEGATIVE) H 10/20/17 03:50 Urine Nitrate NEGATIVE (NEGATIVE) 10/20/17 03:50 Urine Bilirubin NEGATIVE (NEGATIVE) 10/20/17 03:50 Urine Urobilinogen 0.2 E.U./dL (0.2 - 1.0) 10/20/17 03:50 Ur Leukocyte Esterase SMALL (NEGATIVE) H 10/20/17 03:50 Urine RBC 5-10 /hpf (0-5) H 10/20/17 03:50 Urine WBC 50-100 /hpf (0-5) H 10/20/17 03:50 Ur Epithelial Cells MODERATE /lpf (FEW) 10/20/17 03:50 Urine Bacteria MODERATE /hpf (NONE SEEN) H 10/20/17 03:50 - Physical Exam Vitals and I&O: Vital Signs Temp 98.0 F 10/28/17 07:05 Pulse 91 10/28/17 07:31 Resp 26 10/28/17 07:31 BP 133/54 10/28/17 07:05 Pulse Ox 98 10/28/17 07:31 Intake & Output 10/27/17 10/28/17 10/28/17 18:59 06:59 18:59 Intake Total 630 700 Output Total 850 550 550 Balance -220 150 -550 Weight (lbs) 60.781 kg 60.781 kg 61.825 kg Intake: Tube Feeding 480 480 Other 150 220 Output: Urine 850 550 550 Other: # Bowel Movements 0 Active Medications: Current Medications Acetaminophen (Tylenol Extra Strength) 1,000 mg PO Q4HR PRN PRN Reason: MOD PAIN Stop: 12/18/17 21:29 Last Admin: 10/28/17 06:19 Dose: 1,000 mg Acetaminophen (Tylenol) 650 mg PO Q4HR PRN PRN Reason: MILD PAIN OR TEMP >101F Stop: 12/18/17 21:29 Last Admin: 10/28/17 00:09 Dose: 650 mg Albuterol/Ipratropium (Duoneb Neb) 3 ml HHN Q6HRT [facility] Stop: 12/26/17 00:59 Last Admin: 10/28/17 07:30 Dose: 3 ml Amlodipine Besylate (Norvasc) 5 mg GT DAILY [facility] Stop: 12/19/17 08:59 Last Admin: 10/27/17 08:53 Dose: 5 mg Ascorbic Acid (Vitamin C) 500 mg GT DAILY [facility] Stop: 12/19/17 08:59 Last Admin: 10/27/17 08:54 Dose: 500 mg Bisacodyl (Dulcolax 10 Mg Supp) 10 mg RC DAILY PRN PRN Reason: Constipation Stop: 12/18/17 21:29 Calamine (Calamine) 1 appl TP DAILY [facility] Stop: 12/19/17 08:59 Last Admin: 10/27/17 10:32 Dose: 1 appl Fluconazole (Diflucan) 100 mg PO DAILY [facility] Stop: 12/25/17 09:59 Last Admin: 10/27/17 08:54 Dose: 100 mg Hydralazine HCl (Apresoline) 50 mg GT TID [facility] Stop: 12/19/17 08:59 Last Admin: 10/27/17 20:58 Dose: 50 mg Sodium Chloride (Nacl 0.45%) 1,000 mls @ 50 mls/hr IV .Q20H [facility] Stop: 12/21/17 19:02 Last Infusion: 10/26/17 18:07 Dose: 10 mls/hr Insulin Aspart (Novolog Insulin Sliding Scale) 0 units SUBQ Q6HR [facility]NA PRN Reason: Protocol Stop: 12/24/17 06:57 Last Admin: 10/28/17 05:53 Dose: 6 units Insulin Detemir (Levemir Insulin) 30 units SUBQ Q12HR [facility] PRN Reason: Protocol Stop: 12/24/17 00:00 Last Admin: 10/27/17 20:57 Dose: 30 units Lactobacillus Rhamnosus (Culturelle 15b) 1 each GT DAILY [facility] Stop: 12/20/17 08:59 Last Admin: 10/27/17 08:54 Dose: 1 each Magnesium Hydroxide (Milk Of Magnesia) 30 ml GT HS PRN PRN Reason: Constipation Stop: 12/18/17 21:29 Memantine (Namenda) 10 mg GT BID [facility] Stop: 12/19/17 08:59 Last Admin: 10/27/17 16:11 Dose: 10 mg Miscellaneous (Probiotic Screen) 1 ea MC PRN PRN PRN Reason: PROTOCOL Stop: 12/19/17 15:39 Pantoprazole Sodium (Protonix) 40 mg IVP DAILY [facility] Stop: 12/19/17 08:59 Last Admin: 10/27/17 08:52 Dose: 40 mg Senna (Senna) 17.2 mg GT HS [facility] Stop: 12/19/17 20:59 Last Admin: 10/27/17 21:04 Dose: 17.2 mg Sodium Phosphate (Fleet Enema) 135 ml RC Q48H PRN PRN Reason: Constipation Stop: 12/18/17 21:29 Vitamin A (Vitamin A & D) 5 gm TP DAILY [facility] Stop: 12/19/17 08:59 Last Admin: 10/27/17 09:12 Dose: 5 gm Zinc Sulfate (Zinc Sulfate) 220 mg GT DAILY [facility] Stop: 12/19/17 08:59 Last Admin: 10/27/17 08:52 Dose: 220 mg HEENT: PERRLA Neck: Supple Cardiovascular: Regular rate Lungs: Clear to auscultation Abdomen: Bowel sounds - Procedures Procedures: Procedures Procedure Code Date CHANGE FEEDING DEVICE IN UP INTEST TRACT, SURFACE LAY OUT TECHNICIAN APPROACH [id number] 09/13/17 Assessment/Plan - Assessment Assessment: 1. Fever. 2. C diff colitis. 3. UTI - candiduria. 4. hypotension - Plan Plan: titrate levophed as per protocol continue ivabx per id continue current orders Nutritional Asmnt/Malnutr-PDOC - Dietary Evaluation Malnutrition Findings (Please click <Entered> for more info): Nutritional Asmnt/Malnutrition Start: 10/20/17 17: 24 Text: Status: Complete Freq: Document 10/20/17 17:24 LCHEN (Rec: 10/20/17 17:46 LCHENG [id number]) Nutritional Asmnt/Malnutrition Patient General Information Nutritional Screening High Risk Consult Diagnosis urosepsis, c diff Pertinent Medical Hx/Surgical Hx bilateral AKA, DM, blindness, NGTube, dysphagia, COPD, HTN, dementia, neurogenic bladder, osteomyelitis, peristent vegetative status, atherosclerosis of aorta Subjective Information Consult received for brade score of 13, BS 350. Pt seen lying in bed at time of visit. Spoke with RN, RN reported pt had residual > 200ml this morning, TF was hold for 2.5 hr. Rechecked, residual 0ml, restarted TF. Adj BMI considering bilateral AKA BMI=26.8, overweight Current Diet Order/ Nutrition Support Diabetisource 40ml/hr continuous, providing 1152kcal , 58g protein Pertinent Medications vitamin C, novolog, levemir, culturelle, levaquin, protonix , vitamin A&D, zinc Pertinent Labs 10/19 Na 151, K 4.3, Cl 121, BUN 57, Cr 1.8, Glucose 350, POC 340, Ca 8.5, Alb 2.7 10/20 POC 275-401 Nutritional Hx/Data Height 1.73 m Height (Calculated Centimeters) 172.7 Current Weight (lbs) 64.41 kg Weight (Calculated Kilograms) 64.4 Weight (Calculated Grams) 46425.1 [place] Body Weight 112 % [place] Body Weight 127 Body Mass Index (BMI) 21.6 Weight Status Overweight GI Symptoms GI Symptoms Diarrhea Last BM no record Difficult in: None Skin Integrity/Comment: intact Estimated Nutritional Goals BEE in Kcals: Adj wt of IBW Calories/Kcals/Kg 25-30 Kcals Calculated 6624-6579 Protein: Adj wt of IBW Protein g/k Protein Calculated 54 Fluid: ml 1350-1620ml (1ml/kcal) Nutritional Problem 1. Problem Problem altered nutrition related lab values Etiology hx of dm Signs/Symptoms: Glucose 350, POC 275-401 Malnutrition Alert Protein-Calorie Malnutrition N/A Is there a minimum of two criteria No selected? Query Text:Check all the applicable criteria. A minimum of two criteria are recommended for diagnosis of either severe or non-severe malnutrition. Intervention/Recommendation Comments 1. Continue with current TF regimen considering high residual this morning. Check residual q4hr. Hold TF 1hr if residual >200ml. 2. adjust insulin for optimal glycemic control per MD order. 3. Monitor TF rate, tolerance, wt weekly, skin integrity and labs 4. F/U as high risk in 2-3 days, 2/2-2/3 Expected Outcomes/Goals Expected Outcomes/Goals 1. Pt to meet at least 75% of nutritional needs via nutrition support with tolerence. 2. Wt stability, skin to remain intact, labs to improve
[2017-10-28] MEDS: CALAMINE TP SCH (08:46)
[2017-10-28] MEDS: Vitamin A/Vitamin D 5 gm Packet TP SCH (08:46)
[2017-10-28] MEDS: Multivitamin w/ Minerals Tab PO SCH (08:46)
[2017-10-28] MEDS: Lactobacillus Rhamnosus GG 15 Billion CFU CAP.SPRINK GT SCH (08:47)
[2017-10-28] MEDS: Insulin Detemir 100 units/mL 10mL Vial SUBQ SCH ×2 (09:10→21:33)
[2017-10-28 09:54] LABS: ALLEN TEST YES; pH 7.44 (7.35-7.45)
--- NOTE | 2017-10-28 11:21 | Diagnostic Imaging Report ---
Head CT without intravenous contrast Indication: Altered level of consciousness Comparison: None Technique: Axial images were obtained from the vertex to the skull base without IV contrast. Coronal reconstructions were made. Total DLP: 659, [id number] FINDINGS: Images of the brain obtained without contrast demonstrate seen severe low-attenuation changes throughout left cerebral hemisphere with mild mass effect upon the left lateral ventricle and 2 to 3 mm [id number] midline shift. There is also obliteration involving the temporal horn of the left lateral ventricle. Additional low-attenuation changes of right cervical hemisphere are noted greatest within the right frontal lobe. No gross hemorrhage is identified. There is mucosal thickening of the paranasal sinuses. Atherosclerosis is noted. No evidence of a skull fracture or focal soft tissue swelling. Sclerotic bilateral mastoid air cells are noted. 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 Etiologies such as left carotid artery occlusion cannot be excluded. Clinical correlation and follow-up is recommended. Associated mass effect is seen upon the left lateral ventricle with obliteration of the temporal horn of the left lateral ventricle. There is also 2 to 3 mm left to right midline shift. No evidence of an acute hemorrhage. Additional low-attenuation changes and possible ischemia/developing infarcts of the right cerebral hemisphere greatest along the right frontal lobe. Atrophy. Atherosclerotic vascular disease Bilateral mastoid air cell disease and mild sinus disease. Critical results relayed to referring team on 10/28/2017 at 11:17 AM.
[2017-10-28] MEDS ORDERED: Levofloxacin 500mg/100mL 500 MG/100 ML BAG IV SCH (16:00)
[2017-10-28 17:59] LABS: % BASOPHILS 0.1 % (0.0-2.0); % EOSINOPHILS 0.9 % (0.0-5.0); % LYMPHOCYTES 10.2 % (20.0-50.0); % NEUTROPHILS 83.8 % (40.0-80.0); EOSINOPHILE ABSOLUTE 0.1 Th/cmm (0.1-0.4); LYMPHOCYTE ABSOLUTE 1.6 Th/cmm (1.5-3.0); MEAN CELL VOLUME 90.7 fl (81-100); MEAN CORPUSCULAR HEMOGLOBIN 29.5 pg (27.0-31.0); MEAN CORPUSCULAR HGB CONC 32.5 pg (28.0-36.0); MEAN PLATELET VOLUME 9.3 fl; MONOCYTE ABSOLUTE 0.8 Th/cmm (0.3-1.0); PLATELET COUNT 331 Th/cmm (150-400); RED BLOOD COUNT 2.53 Mil/cmm (3.80-5.20); RED CELL DISTRIBUTION WIDTH 15.3 % (11.5-20.0)
[2017-10-28 18:05] LABS: ALB/GLOB RATIO 0.8 (1.0-1.8); ALBUMIN 2.9 gm/dL (3.7-5.3); ALKALINE PHOSPHATASE 112 U/L (34-104); BILIRUBIN,TOTAL 0.4 mg/dL (0.3-1.0); BUN - UREA NITROGEN 49 mg/dL (7-25); CALCIUM SERUM 9.3 mg/dL (8.6-10.3); CARBON DIOXIDE 26.9 mEq/L (21.0-31.0); CHLORIDE 105 mEq/L (98-107); CREATININE - SERUM 1.4 mg/dL (0.6-1.2); GLUCOSE 176 mg/dL (70-105); POTASSIUM SERUM 4.9 mEq/L (3.5-5.1); SGOT 22 U/L (13-39); SGPT/ALT 10 U/L (7-52); SODIUM SERUM 140 mEq/L (136-145); TOTAL PROTEIN,SERUM 6.4 gm/dL (6.0-8.3)
[2017-10-28 18:15] LABS: WHITE BLOOD COUNT 15.5 Th/cmm (4.8-10.8)
[2017-10-28 18:16] LABS: HEMOGLOBIN 7.5 gm/dL (12-16)
[2017-10-28] MEDS: Sodium Chloride 0.45% 1,000 ML IV SCH (21:40)
[2017-10-29] MEDS: Albuterol/Ipratropium Neb 3 ML AERS HHN SCH ×3 (01:09→13:06)
[2017-10-29] MEDS: INSULIN ASPART SLIDING SCALE 100 UNITS/ML UNIT SUBQ SCH ×3 (01:39→13:51)
--- NOTE | 2017-10-29 07:51 | Consultation ---
DATE OF CONSULTATION: 10/28/2017 NEUROLOGY CONSULTATION A 71-year-old female transferred from [place] because the patient with altered level and felt to be possible sepsis. The patient then had a CT scan that shows a subacute to acute stroke in the left MCA. The patient at the moment lethargic, does not interact, with partially open eyes a little bit, no speech. Does not follow instructions. PAST MEDICAL HISTORY: 1. Diabetes. 2. The patient with what appears to be minimal response normally. Apparently described as persistent vegetative status. 3. The patient with dysphagia, G-tube. 4. Bilateral above-knee amputations. 5. Hypertension. 6. Chronic obstructive pulmonary disease. History of previous osteomyelitis. MEDICATIONS: Per reconciliation. REVIEW OF SYSTEMS: Not obtainable. PHYSICAL EXAMINATION: VITAL SIGNS: Temperature 97.8, blood pressure 123/50, pulse is around 80. NECK: Supple, no bruits. HEART: Sounds S1, S2. LUNGS: Clear. NEUROLOGIC: The patient is lying in bed. No speech. Partially opens eyes a little bit, but does not respond much. MOTOR: The patient says she has really no movement in the upper extremity, may be slight withdrawal on the left side, but very minimal right side, no movement. The patient bilateral above-knee amputations. INVESTIGATIONS: CT scan of the head shows a stroke on the left hemisphere with edema pressure on the lateral ventricles with 2-3 mm shift from left to right. LABORATORY DATA: Pending. ASSESSMENT: 1. Acute stroke, left MCA. 2. Diabetes. 3. Encephalopathy. 4. Dysphagia. 5. Bilateral above-knee amputation. 6. Sepsis with urinary tract infection. PLAN: Continue present treatment. The patient will get lab studies done. If it is possible to do a CT angio, we will do that. The patient, if possible, she will be transferred possibly to a [facility], though I do not have any intervention at this time. JOB# [id number]
[2017-10-29] MEDS: Insulin Detemir 100 units/mL 10mL Vial SUBQ SCH (09:17)
[2017-10-29] MEDS: Multivitamin w/ Minerals Tab PO SCH (09:21)
[2017-10-29] MEDS: Lactobacillus Rhamnosus GG 15 Billion CFU CAP.SPRINK GT SCH (09:21)
--- NOTE | 2017-10-29 11:29 | Diagnostic Imaging Report ---
Bilateral carotid Doppler ultrasound exam HISTORY: Stroke, CVA Sonographic sector images were obtained through the carotid bifurcation regions bilaterally. Associated Doppler data was obtained. The exam of the right side demonstrates moderate diffuse atherosclerotic changes throughout the common carotid artery (50% narrowing) moderate changes also noted to the carotid bulb region resulting in approximate 50-60% narrowing. Mild to moderate atherosclerotic plaque is seen throughout the right internal and external carotid arteries resulting in approximate 30% narrowing. Antegrade vertebral artery flow. Elevated velocities noted within the distal portion of the right common carotid artery as well as through the right internal carotid artery region. The ICA/CCA flow ratio remains normal (1.52). The exam the left side demonstrates mild to moderate diffuse atherosclerotic plaque throughout the common carotid artery and carotid bulb region. Evidence of somewhat more severe atherosclerotic plaque noted to the left internal carotid artery that appears to result in greater than 70% narrowing. Mild diffuse atherosclerotic changes noted within the visualized portion of the left external carotid artery. Marked increase in velocity noted within the external carotid area. Decreased velocity noted through the left internal carotid artery region. The left ICA/CCA flow ratio equals 0.39). IMPRESSION: 1. Evidence of moderate to severe diffuse bilateral atherosclerotic changes (left greater than right). If needed, a CT angiographic study would provide additional detail and assessment.
--- NOTE | 2017-10-29 13:33 | Infectious Disease Prog Note ---
Infectious Disease Subjective - Review of Systems Service Date: 10/29/17 Events since last encounter: unresponsive, CT head showed Large left hemispheric infarct. Subjective: doing well. Fever better. Infectious Disease Objective - Results Result Diagrams: 10/28/17 17:43 10/28/17 17:43 Recent Labs: Laboratory Last Values WBC 15.5 Th/cmm (4.8-10.8) H D 10/28/17 17:43 RBC 2.53 Mil/cmm (3.80-5.20) L 10/28/17 17:43 Hgb 7.5 gm/dL (12-16) L* 10/28/17 17:43 Hct 23.0 % (41.0-60) L 10/28/17 17:43 MCV 90.7 fl (81-100) 10/28/17 17:43 MCH 29.5 pg (27.0-31.0) 10/28/17 17:43 MCHC Differential 32.5 pg (28.0-36.0) 10/28/17 17:43 RDW 15.3 % (11.5-20.0) 10/28/17 17:43 Plt Count 331 Th/cmm (150-400) 10/28/17 17:43 MPV 9.3 fl 10/28/17 17:43 Neutrophils % 83.8 % (40.0-80.0) H 10/28/17 17:43 Band Neutrophils % 10 % (0-10) 10/25/17 05:25 Lymphocytes % 10.2 % (20.0-50.0) L 10/28/17 17:43 Monocytes % 5.0 % (2.0-10.0) 10/28/17 17:43 Eosinophils % 0.9 % (0.0-5.0) 10/28/17 17:43 Basophils % 0.1 % (0.0-2.0) 10/28/17 17:43 Neutrophils (Manual) 81 % (40-80) H 10/25/17 05:25 Lymphocytes 5 % (20-50) L 10/25/17 05:25 Monocytes 3 % (2-10) 10/25/17 05:25 Eosinophils 1 % (0-5) 10/25/17 05:25 Basophils 0 % (0-3) 10/19/17 20:32 Platelet Estimate ADEQUATE (NORMAL) 10/19/17 20:32 Platelet Morphology NORMAL (NORMAL) 10/19/17 20:32 RBC Morph Micro Appear NORMAL (NORMAL) 10/19/17 20:32 Specimen Source Arterial 10/28/17 09:48 Sample Site Left Radial 10/28/17 09:48 pH 7.44 (7.35-7.45) 10/28/17 09:48 pCO2 43.0 mmHg (35.0-45.0) 10/28/17 09:48 pO2 80.0 mmHg (80.0-100.0) 10/28/17 09:48 HCO3 28.4 mEq/L (20.0-26.0) H 10/28/17 09:48 Base Excess 4.5 mEq/L (-3.0-3.0) H 10/28/17 09:48 O2 Saturation 96.0 % (92.0-100.0) 10/28/17 09:48 Gt Test YES 10/28/17 09:48 Vent Rate NA 10/28/17 09:48 Inspired O2 28 10/28/17 09:48 Tidal Volume NA 10/28/17 09:48 PEEP NA 10/28/17 09:48 Pressure (ins/psv/peep) NA 10/28/17 09:48 Critical Value E.MELENDEZ 10/28/17 09:48 Sodium 140 mEq/L (136-145) 10/28/17 17:43 Potassium 4.9 mEq/L (3.5-5.1) 10/28/17 17:43 Chloride 105 mEq/L (98-107) 10/28/17 17:43 Carbon Dioxide 26.9 mEq/L (21.0-31.0) 10/28/17 17:43 Anion Gap 13.0 (7.0-16.0) 10/28/17 17:43 BUN 49 mg/dL (7-25) H 10/28/17 17:43 Creatinine 1.4 mg/dL (0.6-1.2) H 10/28/17 17:43 Est GFR ( Amer) TNP 10/28/17 17:43 Est GFR (Non-Af Amer) TNP 10/28/17 17:43 BUN/Creatinine Ratio 35.0 10/28/17 17:43 Glucose 176 mg/dL (70-105) H 10/28/17 17:43 POC Glucose 187 MG/DL (70 - 105) H 10/29/17 06:38 Hemoglobin A1c % 8.5 % (4.0-6.0) H 10/19/17 20:32 Whole Bld Lactic Acid 0.88 mmol/L (0.60-1.99) 10/21/17 07:40 Calcium 9.3 mg/dL (8.6-10.3) 10/28/17 17:43 Total Bilirubin 0.4 mg/dL (0.3-1.0) 10/28/17 17:43 AST 22 U/L (13-39) 10/28/17 17:43 ALT 10 U/L (7-52) 10/28/17 17:43 Alkaline Phosphatase 112 U/L (34-104) H 10/28/17 17:43 Total Protein 6.4 gm/dL (6.0-8.3) 10/28/17 17:43 Albumin 2.9 gm/dL (3.7-5.3) L 10/28/17 17:43 Globulin 3.5 gm/dL 10/28/17 17:43 Albumin/Globulin Ratio 0.8 (1.0-1.8) L 10/28/17 17:43 Urine Source CATH 10/20/17 03:50 Urine Color YELLOW 10/20/17 03:50 Urine Clarity HAZY (CLEAR) 10/20/17 03:50 Urine pH 6.0 (4.6 - 8.0) 10/20/17 03:50 Ur Specific [place] 1.015 (1.005-1.030) 10/20/17 03:50 Urine Protein 100 mg/dL (NEGATIVE) H 10/20/17 03:50 Urine Glucose (UA) >=1000 mg/dL (NEGATIVE) H 10/20/17 03:50 Urine Ketones NEGATIVE mg/dL (NEGATIVE) 10/20/17 03:50 Urine Blood LARGE (NEGATIVE) H 10/20/17 03:50 Urine Nitrate NEGATIVE (NEGATIVE) 10/20/17 03:50 Urine Bilirubin NEGATIVE (NEGATIVE) 10/20/17 03:50 Urine Urobilinogen 0.2 E.U./dL (0.2 - 1.0) 10/20/17 03:50 Ur Leukocyte Esterase SMALL (NEGATIVE) H 10/20/17 03:50 Urine RBC 5-10 /hpf (0-5) H 10/20/17 03:50 Urine WBC 50-100 /hpf (0-5) H 10/20/17 03:50 Ur Epithelial Cells MODERATE /lpf (FEW) 10/20/17 03:50 Urine Bacteria MODERATE /hpf (NONE SEEN) H 10/20/17 03:50 - Physical Exam Vitals and I&O: Vital Signs Temp 99.1 F 10/29/17 12:00 Pulse 80 10/29/17 13:06 Resp 25 10/29/17 13:06 BP 117/52 10/29/17 13:00 Pulse Ox 99 10/29/17 13:06 Intake & Output 10/28/17 10/29/17 10/29/17 18:59 06:59 18:59 Intake Total 376.667 580 Output Total 550 450 320 Balance -173.333 130 -320 Weight (lbs) 61.689 kg 59.239 kg 59.511 kg Intake: Intake, IV Amount 376.667 Sodium Chloride 0.45% 1, 376.667 000 ml @ 50 mls/hr IV . Q20H [facility] Rx#:[id number] Tube Feeding 480 Other 100 Output: Urine 550 450 320 Other: # Bowel Movements 1 Active Medications: Current Medications Acetaminophen (Tylenol Extra Strength) 1,000 mg PO Q4HR PRN PRN Reason: MOD PAIN Stop: 12/18/17 21:29 Last Admin: 10/28/17 06:19 Dose: 1,000 mg Acetaminophen (Tylenol) 650 mg PO Q4HR PRN PRN Reason: MILD PAIN OR TEMP >101F Stop: 12/18/17 21:29 Last Admin: 10/28/17 21:33 Dose: 650 mg Albuterol/Ipratropium (Duoneb Neb) 3 ml HHN Q6HRT [facility] Stop: 12/26/17 00:59 Last Admin: 10/29/17 13:06 Dose: 3 ml Amlodipine Besylate (Norvasc) 5 mg GT DAILY [facility] Stop: 12/19/17 08:59 Last Admin: 10/29/17 09:21 Dose: 5 mg Ascorbic Acid (Vitamin C) 500 mg GT DAILY [facility] Stop: 12/19/17 08:59 Last Admin: 10/29/17 09:21 Dose: 500 mg Aspirin (Aspirin) 325 mg PO DAILY [facility] Stop: 12/27/17 15:59 Last Admin: 10/29/17 09:21 Dose: 325 mg Bisacodyl (Dulcolax 10 Mg Supp) 10 mg RC DAILY PRN PRN Reason: Constipation Stop: 12/18/17 21:29 Calamine (Calamine) 1 appl TP DAILY [facility] Stop: 12/19/17 08:59 Last Admin: 10/28/17 08:46 Dose: 1 appl Fluconazole (Diflucan) 100 mg PO DAILY [facility] Stop: 12/25/17 09:59 Last Admin: 10/29/17 09:21 Dose: 100 mg Hydralazine HCl (Apresoline) 50 mg GT TID [facility] Stop: 12/19/17 08:59 Last Admin: 10/28/17 22:31 Dose: Not Given Sodium Chloride (Nacl 0.45%) 1,000 mls @ 50 mls/hr IV .Q20H [facility] Stop: 12/21/17 19:02 Last Admin: 10/28/17 21:40 Dose: 10 mls/hr Levofloxacin (Levaquin Pb) 500 mg in 100 mls @ 100 mls/hr IV Q24HR [facility] Stop: 12/27/17 15:59 Last Admin: 10/28/17 17:54 Dose: 100 mls/hr Norepinephrine Bitartrate 4 mg (/ Dextrose) 254 mls @ 38.1 mls/hr IV TITR PRN; Protocol; 10 MCG/MIN PRN Reason: BP MAINTENANCE (PER PROTOCOL) Stop: 12/27/17 19:14 Insulin Aspart (Novolog Insulin Sliding Scale) 0 units SUBQ Q6HR [facility] PRN Reason: Protocol Stop: 12/24/17 06:57 Last Admin: 10/29/17 06:43 Dose: 2 units Insulin Detemir (Levemir Insulin) 30 units SUBQ Q12HR [facility] PRN Reason: Protocol Stop: 12/24/17 00:00 Last Admin: 10/29/17 09:17 Dose: 30 units Lactobacillus Rhamnosus (Culturelle 15b) 1 each GT DAILY [facility] Stop: 12/20/17 08:59 Last Admin: 10/29/17 09:21 Dose: 1 each Magnesium Hydroxide (Milk Of Magnesia) 30 ml GT HS PRN PRN Reason: Constipation Stop: 12/18/17 21:29 Memantine (Namenda) 10 mg GT BID [facility] Stop: 12/19/17 08:59 Last Admin: 10/29/17 09:21 Dose: 10 mg Miscellaneous (Probiotic Screen) 1 ea MC PRN PRN PRN Reason: PROTOCOL Stop: 12/19/17 15:39 Pantoprazole Sodium (Protonix) 40 mg IVP DAILY [facility] Stop: 12/19/17 08:59 Last Admin: 10/29/17 09:20 Dose: 40 mg Senna (Senna) 17.2 mg GT HS [facility]EENA Stop: 12/19/17 20:59 Last Admin: 10/28/17 21:33 Dose: 17.2 mg Sodium Phosphate (Fleet Enema) 135 ml RC Q48H PRN PRN Reason: Constipation Stop: 12/18/17 21:29 Vitamin A (Vitamin A & D) 5 gm TP DAILY [facility] Stop: 12/19/17 08:59 Last Admin: 10/28/17 08:46 Dose: 5 gm Zinc Sulfate (Zinc Sulfate) 220 mg GT DAILY [facility] Stop: 12/19/17 08:59 Last Admin: 10/29/17 09:21 Dose: 220 mg General: no acute distress, well developed, well nourished HEENT: atraumatic, normocephalic, PERRLA, other (unable to move eyeball to left (b/l)) Neck: supple, no thyromegaly Cardiovascular: S1S2, regular Lungs: clear to auscultation bilaterally, clear to percussion Abdomen: soft, no tender, no distended Extremities: other (b/l aka), no cyanosis, no clubbing Neurological: awake, alert, oriented Skin: intact - Procedures Procedures: Procedures Procedure Code Date CHANGE FEEDING DEVICE IN UP INTEST TRACT, CONTENT ENGINEER APPROACH [id number] 09/13/17 Infectious Disease Assmt/Plan - Assessment Assessment: 1. Fever. 2. C diff colitis. 3. UTI - candiduria. 4. CVA, acute versus subacute. - Plan Plan: Continue diflucan po and flagyl. Patient is getting transferred to [place] and further management at [place]. Nutritional Asmnt/Malnutr-PDOC - Dietary Evaluation Malnutrition Findings (Please click <Entered> for more info): Nutritional Asmnt/Malnutrition Start: 10/20/17 17: 24 Text: Status: Complete Freq: Document 10/20/17 17:24 DANO (Rec: 10/20/17 17:46 DANO [id number]) Nutritional Asmnt/Malnutrition Patient General Information Nutritional Screening High Risk Consult Diagnosis urosepsis, c diff Pertinent Medical Hx/Surgical Hx bilateral AKA, DM, blindness, NGTube, dysphagia, COPD, HTN, dementia, neurogenic bladder, osteomyelitis, peristent vegetative status, atherosclerosis of aorta Subjective Information Consult received for brade score of 13, BS 350. Pt seen lying in bed at time of visit. Spoke with RN, RN reported pt had residual > 200ml this morning, TF was hold for 2.5 hr. Rechecked, residual 0ml, restarted TF. Adj BMI considering bilateral AKA BMI=26.8, overweight Current Diet Order/ Nutrition Support Diabetisource 40ml/hr continuous, providing 1152kcal , 58g protein Pertinent Medications vitamin C, novolog, levemir, culturelle, levaquin, protonix , vitamin A&D, zinc Pertinent Labs 10/19 Na 151, K 4.3, Cl 121, BUN 57, Cr 1.8, Glucose 350, POC 340, Ca 8.5, Alb 2.7 10/20 POC 275-401 Nutritional Hx/Data Height 1.73 m Height (Calculated Centimeters) 172.7 Current Weight (lbs) 64.41 kg Weight (Calculated Kilograms) 64.4 Weight (Calculated Grams) 82860.1 [place] Body Weight 112 % [place] Body Weight 127 Body Mass Index (BMI) 21.6 Weight Status Overweight GI Symptoms GI Symptoms Diarrhea Last BM no record Difficult in: None Skin Integrity/Comment: intact Estimated Nutritional Goals BEE in Kcals: Adj wt of IBW Calories/Kcals/Kg 25-30 Kcals Calculated 2646-5345 Protein: Adj wt of IBW Protein g/k Protein Calculated 54 Fluid: ml 1350-1620ml (1ml/kcal) Nutritional Problem 1. Problem Problem altered nutrition related lab values Etiology hx of dm Signs/Symptoms: Glucose 350, POC 275-401 Malnutrition Alert Protein-Calorie Malnutrition N/A Is there a minimum of two criteria No selected? Query Text:Check all the applicable criteria. A minimum of two criteria are recommended for diagnosis of either severe or non-severe malnutrition. Intervention/Recommendation Comments 1. Continue with current TF regimen considering high residual this morning. Check residual q4hr. Hold TF 1hr if residual >200ml. 2. adjust insulin for optimal glycemic control per MD order. 3. Monitor TF rate, tolerance, wt weekly, skin integrity and labs 4. F/U as high risk in 2-3 days, 2/2-2/3 Expected Outcomes/Goals Expected Outcomes/Goals 1. Pt to meet at least 75% of nutritional needs via nutrition support with tolerence. 2. Wt stability, skin to remain intact, labs to improve
[2017-10-29] MEDS: Vitamin A/Vitamin D 5 gm Packet TP SCH (13:50)
--- NOTE | 2017-11-02 21:14 | Discharge Summary ---
DATE OF DISCHARGE: 10/29/2017 A 71-year-old female patient brought to the hospital because of tachypnea, tachycardia and sepsis and hyperglycemia, and symptoms of diabetes and the patient was treated for all of that and the patient gradually improved and the patient was in stable condition and on 10/29/2017 with final diagnoses of hyperglycemia, respiratory failure ____ still not stable. MEDICATIONS: Please see the reconciliation sheet. [facility]# [id number]
== END 2017-10-29 17:00 | disposition short-term general hospital (02) | DRG 720 ==
LOC: TELE 18:14 → ICU 10-28 16:51
PROVIDERS: ADMIT Internal Medicine; ATTEND Internal Medicine
DX: A41.9 Sepsis, unspecified organism (principal); J96.90 Respiratory failure, unspecified, unspecified whether with hypoxia or hypercapnia; I63.9 Cerebral infarction, unspecified; A04.72 Enterocolitis due to Clostridium difficile, not specified as recurrent; G93.40 Encephalopathy, unspecified; R13.10 Dysphagia, unspecified; Z93.1 Gastrostomy status; F03.90 Unspecified dementia, unspecified severity, without behavioral disturbance, psychotic disturbance, mood disturbance, and anxiety; J44.9 Chronic obstructive pulmonary disease, unspecified; N39.0 Urinary tract infection, site not specified; I10 Essential (primary) hypertension; H54.7 Unspecified visual loss; B96.4 Proteus (mirabilis) (morganii) as the cause of diseases classified elsewhere; I70.0 Atherosclerosis of aorta; E11.65 Type 2 diabetes mellitus with hyperglycemia; N31.9 Neuromuscular dysfunction of bladder, unspecified; Z89.512 Acquired absence of left leg below knee; Z88.0 Allergy status to penicillin; Z79.4 Long term (current) use of insulin; Z89.511 Acquired absence of right leg below knee
CPT/HCPCS: 36415-UA; 36600-90; 70450-TC; 71045-TC; 76770-TC; 80048-TC; 80053-TC; 81001-TC; 82803-TC; 82948-90; 83036-90; 83605; 85007-TC; 85025-TC; 85027-TC; 87086-90; 93880-TC; 93970-TC-50; 94640; 94760; C9113; J1815; J1940; J1956; X6452; Z7610